=== PATIENT | male | born 1935 | race Caucasian/White ===

== ENCOUNTER 2016-11-23 16:11 | Inpatient (IN) | payer MEDICARE, OTHER ==
[~2016-11-23] VITALS: Ht 172.7 cm; Wt 74.2 kg
[~2016-11-23 16:11] MED LIST: ASCO500C PO; CALC-67 PO; CARV3.122 PO; CLOP75TA27 PO; FEXO180T81 PO; GLUC100018 PO; LEVO100T5 PO; LEVO112T4 PO; NITR0.4T SL; OMEP40CA5 PO; PANT40TA5 PO; PRAS10TA4 PO; RANO500T2 PO; SIMV20TA3 PO; VITA400T6 PO; [UNRECOGNIZED DRUG - OTHER]
--- NOTE | 2016-11-23 18:44 | PHYS DOC ---
Past Medical History Past Medical History: CAD, GERD, High Cholesterol, Hypertension, Hypothyroid Additional Past Medical Histor: ENVIRONMENTAL ALLERGIES Past Surgical History: TURP Additional Past Surgical Histo: CARDIAC STENT, SHOULDER & ANKLE SX, CATARACT SX Alcohol Use: None Drug Use: None Adult General Chief Complaint Chief Complaint: FLU SYMPTOM HPI HPI 81-year-old male presenting the emergency department with lightheadedness cough with clear runny nose and shortness of breath over the last 4 days. Recently diagnosed with influenza-type PCR in his primary care physician's office. He denies fevers however endorses chills. Onset 4 days. Location lungs/upper respiratory tract. Duration intermittent. No alleviating or exacerbating factors present. Review of systems is negative for chest pain abdominal pain nausea or vomiting. He denies diaphoresis. All other review of systems is negative unless otherwise noted in history of present illness. Review of Systems Review of Systems SEE ABOVE. Current Medications Current Medications Current Medications Medications (Trade) Dose Ordered Sig/Julian Start Time Stop Time Status Last Admin Dose Admin Morphine Sulfate 2 mg 2 mg PRN Q2HR PRN 11/23/16 19:15 11/24/16 19:14 Ondansetron HCl (Zofran) 4 mg PRN Q8HRS PRN 11/23/16 19:15 11/24/16 19:14 Oseltamivir Phosphate (Tamiflu) 75 mg BID 11/23/16 21:00 11/28/16 20:59 Sodium Chloride (Iv Sodium Chloride 0.9% 1000ml Bag) 1,000 ml @ 125 mls/hr Q8H 11/23/16 19:10 11/24/16 19:09 Allergies Allergies Allergies Coded Allergies Type Severity Reaction Last Updated Verified No Known Drug Allergies 08/16/14 No Physical Exam Physical Exam Constitutional: Well developed, well nourished, no acute distress, non-toxic appearance. HENT: Normocephalic, atraumatic, bilateral external ears normal, oropharynx moist, no oral exudates, nose normal. . Rhinorrhea present. Eyes: PERRLA, EOMI, conjunctiva normal, no discharge. Neck: Normal range of motion, no tenderness, supple, no stridor. [] Cardiovascular:Heart rate regular rhythm, no murmur Lungs & Thorax: Bilateral breath sounds clear to auscultation . No wheezing or crackles present. Abdomen: Bowel sounds normal, soft, no tenderness, no masses, no pulsatile masses. Skin: Warm, dry, no erythema, no rash. [] Back: No tenderness, no CVA tenderness. Extremities: No tenderness, no cyanosis, no clubbing, ROM intact, no edema. [] Neurologic: Alert and oriented X 3, normal motor function, normal sensory function, no focal deficits noted. Psychologic: Affect normal, judgement normal, mood normal. [] Current Patient Data Vital Signs Vital Signs Date Time Temp Pulse Resp B/P Pulse Ox O2 Delivery O2 Flow Rate FiO2 11/23/16 19:00 82 20 159/85 94 Room Air 11/23/16 16:23 99.7 99.7 EKG EKG [] Radiology/Procedures Radiology/Procedures [] Course & Med Decision Making Course & Med Decision Making Pertinent Labs and Imaging studies reviewed. (See chart for details) 81-year-old male presenting to the emergency department today with influenza. Given the patient's age he was treated with Tamiflu. While in the emergency department with attempted to get a chest x-ray two-view however the patient was too lightheaded to be able to stand. He was dehydrated. IV fluids administered along with Tamiflu. Blood work was obtained. Patient was then admitted to our hospital for IV fluid administration and treatment for influenza. Dragon Disclaimer Dragon Disclaimer This electronic medical record was generated, in whole or in part, using a voice recognition dictation system. Departure Departure Impression: Primary Impression: Influenza Additional Impression: Dehydration Disposition: ADMITTED INPATIENT Admitting Physician: Mingo Hathaway Condition: STABLE Referrals: SEJAL CEDENO MD (PCP) Problem Qualifiers NEHEMIAS MOLINA MD Nov 23, 2016 18:44
[2016-11-23 19:02] LABS: BILIRUBIN,URINE NEGATIVE (NEG); GLUCOSE,URINE NEGATIVE (NEG); NITRITE,URINE NEGATIVE (NEG)
[2016-11-23] MEDS ORDERED: IV NORMAL SALINE 1000ML BAG 1,000 ML IV SCH (19:10)
[2016-11-23] MEDS ORDERED: MORPHINE SULFATE 2 MG/ML DISP.SYRIN. IV PRN (19:15)
[2016-11-23] MEDS ORDERED: ONDANSETRON PF 4 MG/2 ML VIAL. IV PRN (19:15)
[2016-11-23 19:51] LABS: PROTEIN,URINE NEGATIVE (NEG-TRACE); WBC,URINE OCC /HPF (0-4)
[2016-11-23 19:52] LABS: BACTERIA,URINE FEW /HPF (0-FEW); SQUAMOUS EPITHELIAL CELL,UR OCC /LPF
[2016-11-23 20:16] LABS: BASO % 0 % (0-3); EOS % 0 % (0-3); HEMATOCRIT 42.7 % (39.0-53.0); HEMOGLOBIN 14.8 g/dL (13.0-17.5); LYMPH # 0.5 x10^3/uL (1.0-4.8); LYMPH % 8 % (24-48); MEAN CORPUSCULAR HEMOGLOBIN 31 pg (25-35); MEAN CORPUSCULAR HGB CONC 35 g/dL (31-37); MEAN CORPUSCULAR VOLUME 89 fL (79-100); MONO % 12 % (0-9); NEUT % 80 % (31-73); PLATELET COUNT 74 x10^3/uL (140-400); RED BLOOD COUNT 4.79 x10^6/uL (4.30-5.70); RED CELL DISTRIBUTION WIDTH 12.9 % (11.5-14.5); WHITE BLOOD COUNT 6.1 x10^3/uL (4.0-11.0)
[2016-11-23 20:25] LABS: CALCIUM 9.1 mg/dL (8.5-10.1); CREATININE 0.9 mg/dL (0.7-1.3); GFR 81.4; POTASSIUM 4.2 mmol/L (3.5-5.1)
[2016-11-23 20:33] LABS: ALBUMIN 3.7 g/dL (3.4-5.0); DIRECT BILIRUBIN 0.2 mg/dL (0.0-0.2); TOTAL BILIRUBIN 0.9 mg/dL (0.2-1.0); TOTAL PROTEIN 6.9 g/dL (6.4-8.2)
[2016-11-23 20:59] VITALS: BP 161/83
[2016-11-23] MEDS: OSELTAMIVIR 75 MG CAPSULE PO SCH (21:25)
[2016-11-23] MEDS ORDERED: LISI20TA PO (21:47)
[2016-11-23] MEDS ORDERED: CLOP75TA PO (21:49)
[2016-11-23] MEDS ORDERED: LANS30CA PO (21:49)
[2016-11-23] MEDS ORDERED: MULT-208 PO (21:52)
[2016-11-23 23:00] VITALS: BP 136/73
[2016-11-23] MEDS: SIMVASTATIN 20 MG TABLET PO SCH (23:40)
[2016-11-23] MEDS: RANOLAZINE 500 MG TAB.ER.12H PO SCH (23:41)
[2016-11-24] VITALS (8 sets, daily range): BP systolic 113–185; BP diastolic 73–101
--- NOTE | 2016-11-24 00:27 | HP ---
ADMIT DATE: 11/23/2016 CHIEF COMPLAINT: Flu symptoms. HISTORY OF PRESENT ILLNESS: The patient is a pleasant 81-year-old male who presents with worsening shortness of breath, weakness and lightheadedness. He is orthostatic. He states he has been treated for the flu by his primary care doctor. While in the ER, he can barely stand up. I have discussed the case with the ER physician. It appears he probably is developing clinical pneumonia. We are going to admit the patient, start him on IV antibiotics and consult pulmonary medicine and infectious disease. PAST MEDICAL HISTORY: Recent flu, coronary artery disease, GERD, hypertension, hyperlipidemia, cardiac stents, shoulder and ankle surgery, cataract surgery. ALLERGIES: None. FAMILY HISTORY: Hypertension. SOCIAL HISTORY: Does not drink, smoke or take drugs. MEDICATIONS: Reviewed, please refer to the MRAD. REVIEW OF SYSTEMS: GENERAL: He complains of weakness and lightheadedness. SKIN: No bruising, hair changes or rashes. EYES: No blurred, double or loss of vision. NOSE AND THROAT: No history of nosebleeds, hoarseness or sore throat. HEART: No history of palpitations, chest pain or shortness of breath on exertion. LUNGS: He complains of shortness of breath. GASTROINTESTINAL: Denies changes in appetite, nausea, vomiting, diarrhea or constipation. GENITOURINARY: No history of frequency, urgency, hesitancy or nocturia. NEUROLOGIC: Denies history of numbness, tingling, tremor or weakness. PSYCHIATRIC: No history of panic, anxiety or depression. ENDOCRINE: No history of heat or cold intolerance, polyuria or polydipsia. EXTREMITIES: Denies muscle weakness, joint pain, pain on walking or stiffness. PHYSICAL EXAMINATION: VITAL SIGNS: Temperature afebrile, pulse 90, respirations 18, blood pressure 127/94. GENERAL: He is alert, very weak. HEART: Normal S1, S2. LUNGS: Slightly coarse. ABDOMEN: Soft, positive bowel sounds. EXTREMITIES: No edema. SKIN: No rashes. PSYCHIATRIC: He is anxious. VASCULAR: Good capillary refill. ENDOCRINE: No thyromegaly. LYMPHATICS: No cervical nodes. HEMATOPOIETIC: No bruising. LABORATORY DATA: White count 6, hemoglobin 14, platelets 74. Electrolytes normal other than sodium of 135 and a glucose of 116. Troponin 0.023. BNP 715. Urinalysis negative other than a small amount of leukocyte esterase. Chest x-ray results are pending. ASSESSMENT AND PLAN: Recent influenza with persistent flu symptoms. The patient has been admitted, we will consult Infectious Disease and Pulmonary Medicine and Cardiology. IV fluids. Continue home medicines. We will consider starting IV antibiotics if Infectious Disease agrees. KELLEY WASHINGTON DO DR: MILLICENT/rohini JOB#: [id number] / [id number]
--- NOTE | 2016-11-24 00:39 | ACF ---
Admission Forms Criteria Admission Criteria Met?: KASIA Simms Nov 24, 2016 00:41 NEHEMIAS MOLINA MD Nov 24, 2016 18:11
[2016-11-24 03:44] LABS: HCO3 ABG 23 mmol/L (21-28); PCO2 ABG 38 mmHg (35-46); PO2 ABG 61 mmHg (65-108); SAT O2 ABG 90 % (92-99)
[2016-11-24] MEDS ORDERED: IV NORMAL SALINE 1000ML BAG 1,000 ML IV SCH (04:30)
[2016-11-24] MEDS ORDERED: FUROSEMIDE 100 MG/10 ML VIAL IVP ONE (04:30)
[2016-11-24] MEDS ORDERED: FUROSEMIDE 20 MG/2 ML VIAL IVP ONE (04:30)
[2016-11-24] MEDS ORDERED: SODIUM BICARB ADULT 8.4% 50 MEQ/50 ML DISP.SYRIN. IV ONE (05:00)
[2016-11-24 05:09] LABS: BASO % 0 % (0-3); CALCIUM 8.3 mg/dL (8.5-10.1); CREATININE 0.8 mg/dL (0.7-1.3); EOS % 0 % (0-3); GFR 93.3; HEMATOCRIT 41.7 % (39.0-53.0); HEMOGLOBIN 14.2 g/dL (13.0-17.5); LYMPH # 0.4 x10^3/uL (1.0-4.8); LYMPH % 6 % (24-48); MEAN CORPUSCULAR HEMOGLOBIN 31 pg (25-35); MEAN CORPUSCULAR HGB CONC 34 g/dL (31-37); MEAN CORPUSCULAR VOLUME 90 fL (79-100); MONO % 8 % (0-9); NEUT % 86 % (31-73); PLATELET COUNT 65 x10^3/uL (140-400); POTASSIUM 3.7 mmol/L (3.5-5.1); RED BLOOD COUNT 4.64 x10^6/uL (4.30-5.70); RED CELL DISTRIBUTION WIDTH 12.9 % (11.5-14.5); WHITE BLOOD COUNT 7.2 x10^3/uL (4.0-11.0)
--- NOTE | 2016-11-24 05:52 | RAD ---
PROCEDURE AP portable chest x-ray HISTORY Respiratory distress, pneumonia COMPARISON Chest x-ray August 16, 2014 FINDINGS This study was not requested for interpretation and sent to the [facility] PACs for interpretation until 5 a.m. November 24, 2016. Heart size stable. Tortuosity thoracic aorta silhouette is stable. There is asymmetric rounded fullness at the right hilum, a mass or adenopathy is not excluded. No pneumothorax, pulmonary opacities or pleural effusions. Fixation plate and screws at the right clavicle. IMPRESSION Rounded asymmetric density at the right hilum, a mass or adenopathy is not excluded. Electronically signed by: Neo Napier MD (Nov 24, 2016 05:51:09)
[2016-11-24] MEDS: PANTOPRAZOLE 40 MG TABLET. PO SCH (06:35)
[2016-11-24] MEDS: LEVOTHYROXINE 112 MCG TABLET PO SCH (06:35)
--- NOTE | 2016-11-24 06:37 | EKG ---
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
[2016-11-24 07:45] LABS: OBC FLU VALID
--- NOTE | 2016-11-24 08:29 | PDOC ---
Provider Note Provider Note dictated inf A Right hilar density see orders LAYTON VAZQUEZ MD Nov 24, 2016 08:28
[2016-11-24] MEDS: CETIRIZINE HCL 10 MG TABLET PO SCH (08:46)
[2016-11-24] MEDS: CALCIUM CARB/VIT D3 500/200 TABLET PO SCH (08:46)
[2016-11-24] MEDS: RANOLAZINE 500 MG TAB.ER.12H PO SCH ×2 (08:46→21:03)
[2016-11-24] MEDS: ASCORBIC ACID 500 MG TABLET PO SCH (08:46)
[2016-11-24] MEDS: CLOPIDOGREL BISULFATE 75 MG TABLET PO SCH (08:46)
[2016-11-24] MEDS: MULTIVITAMIN with MINERAL TABLET. PO SCH (08:47)
[2016-11-24] MEDS: OSELTAMIVIR 75 MG CAPSULE PO SCH ×2 (08:47→21:03)
[2016-11-24] MEDS: VITAMIN E 200 UNIT CAPSULE. PO SCH (08:47)
[2016-11-24] MEDS: LISINOPRIL 20 MG TABLET PO SCH (08:47)
[2016-11-24] MEDS: CARVEDILOL 3.125 MG TABLET PO SCH ×2 (08:48→18:12)
[2016-11-24] MEDS ORDERED: IOHEXOL 300 MG/ML 75 ML VIAL IV ONE (09:00)
[2016-11-24] MEDS ORDERED: NON FORMULARY ITEM (Glucosamine Sulfate 2KCL (Glucosamine) 1,000 MG) PO SCH (09:00)
--- NOTE | 2016-11-24 09:14 | CONS ---
DATE OF CONSULTATION: 11/24/2016 Maximal ATTENDING PHYSICIAN: Dr. Hathaway. REASON FOR CONSULTATION: Influenza, dyspnea, respiratory failure. HISTORY OF PRESENT ILLNESS: The patient is a 81-year-old male who smoked for 27 years before quitting more than 25 years ago. He presented to the hospital with complaint of shortness of breath, cough, subjective fever, weakness and lightheadedness. He was tested positive for influenza A. The patient had a chest x-ray, which was reviewed by me and it shows an asymmetric density at the right hilum which could be a mass or adenopathy. I have been asked to see him for further evaluation. There is no subjective weight loss. No hemoptysis. No headaches. No nausea, vomiting or diarrhea. PAST MEDICAL HISTORY: Coronary artery disease, GERD, hypertension, hyperlipidemia, cardiac stents, shoulder and ankle surgery and cataract surgery and possible COPD. PAST SURGICAL HISTORY: No recent surgery. ALLERGIES: None. FAMILY HISTORY: Hypertension. SOCIAL HISTORY: Quit tobacco more than 25 years and before this, smoked for 27 years. MEDICATIONS: All reviewed as listed in the MRAD including Plavix and Tamiflu. REVIEW OF SYSTEMS: Twelve-point system was obtained. Pertinent positives discussed in history of present illness, otherwise noncontributory. All systems that were negative were reviewed as well. ALLERGIES: None. FAMILY HISTORY: Noncontributory. PHYSICAL EXAMINATION: VITAL SIGNS: T-max 99.5, blood pressure is stable 113/75, pulse ox 97% on 5 liters. NECK: Supple. LUNGS: Few rhonchi posteriorly. CARDIOVASCULAR: Regular rate and rhythm. ABDOMEN: Soft, nontender. EXTREMITIES: With no pitting edema. LABORATORY DATA: Reviewed. BUN 12, creatinine 0.8. ABGs with a pH of 7.40, pCO2 of 30 and a pO2 of 61 on 32% FIO2. White cell count 7.2. IMPRESSION: 1. Acute hypoxic respiratory failure secondary to influenza A. 2. Abnormal chest x-ray with asymmetric rounded density in the right hilar area could be mass or adenopathy or pulmonary artery shadow, needs to have CT chest for better evaluation. 3. Possible underlying chronic obstructive pulmonary disease. 4. Influenza A. RECOMMENDATIONS: 1. Continue with present oxygen with gradual weaning. 2. Continue with Tamiflu. 3. P.r.n. bronchodilators. 4. CT chest with contrast to rule out right hilar adenopathy or mass. 5. Monitor for any fevers. 6. Respiratory isolation for influenza. 7. Discussed with RN. Further recommendations to follow after CT of the chest. LAYTON VAZQUEZ MD DR: KRYSTEN/rohini JOB#: [id number] / [id number]
--- NOTE | 2016-11-24 09:51 | PDOC2 ---
CARDIAC CONSULT DATE OF CONSULT Date of Consult DATE: 11/24/16 TIME: 09:42 REASON FOR CONSULT Reason for Consult: CHF REFERRING PHYSICIAN Referring Physician: Dr. 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 Patient reports symptoms have been ongoing since Wednesday. PCR positives for influenza at PCP office. Patient denies any chest pain, palpitations, dizziness, syncope, LE edema, or orthopnea. Denies fevers but has had chills. 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 Endocrine: Hypothyroidism Dermatology: No pertinent hx PAST SURGICAL HISTORY Past Surgical History: Other (left shoulder and right foot sx. See PMH) FAMILY HISTORY Family History: Heart Disease SOCIAL HISTORY Smoke: No ALCOHOL: none Drugs: None Lives: with Family CURRENT MEDICATIONS CURRENT MEDICATIONS Current Medications Medications (Trade) Dose Ordered Sig/Julian Route PRN Reason Start Time Stop Time Status Last Admin Dose Admin Oseltamivir Phosphate 75 mg 75 mg BID PO 11/23/16 21:00 11/28/16 20:59 11/24/16 08:47 Sodium Chloride (Iv Sodium Chloride 0.9% 1000ml Bag) 1,000 ml @ 125 mls/hr Q8H IV 11/23/16 19:10 11/24/16 04:19 DC 11/23/16 20:13 Carvedilol (Coreg) 3.125 mg BIDWMEALS PO 11/24/16 08:00 11/24/16 08:48 Clopidogrel Bisulfate (Plavix) 75 mg DAILY PO 11/24/16 09:00 11/24/16 08:46 Levothyroxine Sodium (Synthroid) 112 mcg DAILY07 PO 11/24/16 07:00 11/24/16 06:35 Lisinopril (Prinivil) 20 mg DAILY PO 11/24/16 09:00 11/24/16 08:47 Ranolazine (Ranexa) 500 mg BID PO 11/23/16 23:00 11/24/16 08:46 Simvastatin (Zocor) 20 mg HS PO 11/23/16 23:00 11/23/16 23:40 Ascorbic Acid (Vitamin C) 500 mg DAILY PO 11/24/16 09:00 11/24/16 08:46 Calcium/Vitamin D (Oscal D 500mg/ 200uts) 1 tab DAILY PO 11/24/16 09:00 11/24/16 08:46 Cetirizine HCl (Zyrtec) 10 mg DAILY PO 11/24/16 09:00 11/24/16 08:46 Pantoprazole Sodium (Protonix) 40 mg DAILYAC PO 11/24/16 07:30 11/24/16 06:35 Multivitamins/ Calcium (Thera M Plus) 1 tab DAILY PO 11/24/16 09:00 11/24/16 08:47 Vitamin E 400 unit DAILY PO 11/24/16 09:00 11/24/16 08:47 Furosemide 60 mg 60 mg 1X ONCE IVP 11/24/16 04:30 11/24/16 04:31 DC 11/24/16 04:36 Sodium Chloride (Iv Sodium Chloride 0.9% 1000ml Bag) 1,000 ml @ 20 mls/hr Q24H IV 11/24/16 04:30 11/24/16 04:31 DC 11/24/16 04:38 Sodium Bicarbonate 50 meq 1X ONCE IV 11/24/16 05:00 11/24/16 05:01 DC 11/24/16 04:47 ALLERGIES ALLERGIES: Coded Allergies: No Known Drug Allergies (Unverified , 08/16/14) ROS Review of System 14 point ROS conducted with pertinent positives noted above in HPI PHYSICAL EXAM General: Alert, Oriented X3, Cooperative, No acute distress HEENT: Atraumatic, Mucous membr. moist/pink Lungs: Other (coarse throughout ) Heart: Regular rate, Normal S1, Normal S2, Other (tele: SR) Abdomen: Soft, No tenderness Extremities: No edema, Normal pulses Skin: No breakdown, No significant lesion Neuro: Normal speech, Sensation intact Psych/Mental Status: Mental status NL, Mood NL MUSCULOSKELETAL: Osteoarthritic changes both hands VITALS VITALS Vital Signs Date Time Temp Pulse Resp B/P Pulse Ox O2 Delivery O2 Flow Rate FiO2 11/24/16 08:48 93 113/75 11/24/16 06:37 97.5 28 97 Simple Mask 5.0 97.5 LABS Lab: Laboratory Tests Test 11/23/16 17:28 11/23/16 20:05 11/24/16 03:44 11/24/16 04:45 Urine Collection Type Unknown Urine Color [place] Urine Clarity Clear Urine pH 7.0 Urine Specific Hamel 1.020 Urine Protein Negativemg/dL (NEG-TRACE) Urine Glucose (UA) Negativemg/dL (NEG) Urine Ketones (Stick) Tracemg/dL (NEG) Urine Blood Negative (NEG) Urine Nitrite Negative (NEG) Urine Bilirubin Negative (NEG) Urine Urobilinogen Dipstick 1.0mg/dL (0.2 mg/dL) Urine Leukocyte Esterase Small (NEG) Urine RBC 3-5/HPF (0-2) Urine WBC Occ/HPF (0-4) Urine Squamous Epithelial Cells Occ/LPF Urine Bacteria Few/HPF (0-FEW) White Blood Count 6.1x10^3/uL (4.0-11.0) 7.2x10^3/uL (4.0-11.0) Red Blood Count 4.79x10^6/uL (4.30-5.70) 4.64x10^6/uL (4.30-5.70) Hemoglobin 14.8g/dL (13.0-17.5) 14.2g/dL (13.0-17.5) Hematocrit 42.7% (39.0-53.0) 41.7% (39.0-53.0) Mean Corpuscular Volume 89fL (79-100) 90fL (79-100) Mean Corpuscular Hemoglobin 31pg (25-35) 31pg (25-35) Mean Corpuscular Hemoglobin Concent 35g/dL (31-37) 34g/dL (31-37) Red Cell Distribution Width 12.9% (11.5-14.5) 12.9% (11.5-14.5) Platelet Count 74x10^3/uL (140-400) 65x10^3/uL (140-400) Neutrophils (%) (Auto) 80% (31-73) 86% (31-73) Lymphocytes (%) (Auto) 8% (24-48) 6% (24-48) Monocytes (%) (Auto) 12% (0-9) 8% (0-9) Eosinophils (%) (Auto) 0% (0-3) 0% (0-3) Basophils (%) (Auto) 0% (0-3) 0% (0-3) Neutrophils # (Auto) 4.9x10^3uL (1.8-7.7) 6.2x10^3uL (1.8-7.7) Lymphocytes # (Auto) 0.5x10^3/uL (1.0-4.8) 0.4x10^3/uL (1.0-4.8) Monocytes # (Auto) 0.7x10^3/uL (0.0-1.1) 0.6x10^3/uL (0.0-1.1) Eosinophils # (Auto) 0.0x10^3/uL (0.0-0.7) 0.0x10^3/uL (0.0-0.7) Basophils # (Auto) 0.0x10^3/uL (0.0-0.2) 0.0x10^3/uL (0.0-0.2) Sodium Level 135mmol/L (136-145) 134mmol/L (136-145) Potassium Level 4.2mmol/L (3.5-5.1) 3.7mmol/L (3.5-5.1) Chloride Level 98mmol/L (98-107) 100mmol/L (98-107) Carbon Dioxide Level 31mmol/L (21-32) 28mmol/L (21-32) Anion Gap 6 (6-14) 6 (6-14) Blood Urea Nitrogen 11mg/dL (8-26) 12mg/dL (8-26) Creatinine 0.9mg/dL (0.7-1.3) 0.8mg/dL (0.7-1.3) Estimated GFR (Cockcroft-Gault) 81.4 93.3 Glucose Level 116mg/dL (70-99) 111mg/dL (70-99) Calcium Level 9.1mg/dL (8.5-10.1) 8.3mg/dL (8.5-10.1) Total Bilirubin 0.9mg/dL (0.2-1.0) Direct Bilirubin 0.2mg/dL (0.0-0.2) Aspartate Amino Transf (AST/SGOT) 24U/L (15-37) Alanine Aminotransferase (ALT/SGPT) 22U/L (16-63) Alkaline Phosphatase 69U/L (46-116) Troponin I Quantitative 0.023ng/mL (0.000-0.055) QG-Sin-J-Type Natriuretic Peptide 715pg/mL (0-449) Total Protein 6.9g/dL (6.4-8.2) Albumin 3.7g/dL (3.4-5.0) Lipase 77U/L (73-393) O2 Saturation 90% (92-99) Arterial Blood pH 7.40 (7.35-7.45) Arterial Blood pCO2 at Patient Temp 38mmHg (35-46) Arterial Blood pO2 at Patient Temp 61mmHg (65-108) Arterial Blood HCO3 23mmol/L (21-28) Arterial Blood Base Excess -2mmol/L (-3-3) FiO2 32.0 Lactic Acid Level 1.1mmol/L (0.4-2.0) Test 11/24/16 07:10 Influenza Type A Antigen Positive (NEGATIVE) Influenza Type B Antigen Negative (NEGATIVE) ECHOCARDIOGRAM ECHOCARDIOGRAM <Conclusion> Left ventricle systolic function is normal. The Ejection Fraction is estimated at 55%. There is normal LV segmental wall motion. Transmitral Doppler flow pattern is Grade I-abnormal relaxation pattern. Mild aortic regurgitation. Moderate mitral regurgitation. Trace tricuspid regurgitation. The PA pressure was estimated at 34 mmHg. Injection of bubbles documented no interatrial shunt. There is no evidence of significant pericardial effusion. DATE: 10/23/15 1305 STRESS TEST STRESS TEST Conclusion 1. No evidence of ischemia with vasodilator stress on EKG but PVC's noted. 2. Fixed inferior wall defect as noted above. 3. Normal EF with stress. EF > 70% 4. Moderate risk stress test (Based on defect size and PVC's at stress). DATE: 10/22/15 1205 HEART CATH HEART CATH DATE: 08/20/14 1611 Conclusion Normal left main coronary artery. 2 vessel coronary artery disease encompassing a total occlusion of the right coronary artery in its proximal section along with a 90% stenosis at the origin of second rami involving a large first obtuse marginal vessel. This lesion was looked on by Dr. Souza and deemed not to be optimal for percutaneous intervention. He felt medical therapy was warranted. Left ventricular ejection fraction is within normal limits and visually estimated to be 65%. Recommendations Aggressive Medical Therapy DATE: 10/25/15 1101 Conclusion 1. Two-vessel coronary artery disease including chronic total occlusion of the right coronary artery that was described in prior cardiac catheterization and managed medically. 2. Successful PCI/drug eluting stent placement to the left anterior descending artery. Recommendations 1. Aspirin 325 mg daily 2. Effient 10 mg daily for preferably one year 3. Cardiovascular risk factor modification ASSESSMENT/PLAN ASSESSMENT/PLAN 1. Dyspnea likely due to acute respiratory failure secondary to influenza and AE COPD mild Nt BNP elevation insignificant based upon age adjustment. CXR not consistent with HF no clinical s/s of overt HF continued management per pulm 2. CAD stable. CP free s/p PCI/SIDRA to LAD. 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 3. PAD stable. no claudication symptom 4. HTN controlled. continue current therapy 5. HLP statin therapy 6. Influenza febrile Problems: TOREY NEVAREZ APRN Nov 24, 2016 09:51
--- NOTE | 2016-11-24 10:14 | PDOC ---
PROGRESS NOTES Chief Complaint Chief Complaint sepsis, viral influenza A COPD possible constipation marked weakness History of Present Illness History of Present Illness symptom management antitussives nebs, pulm toilet start PT and OT miralax and colace, he reports constipation Vitals Vitals Vital Signs Date Time Temp Pulse Resp B/P Pulse Ox O2 Delivery O2 Flow Rate FiO2 11/24/16 08:48 93 113/75 11/24/16 06:37 97.5 28 97 Simple Mask 5.0 97.5 Physical Exam General: Alert, Oriented X3, Cooperative Heart: Regular rate Lungs: Other (rales, low vol) Abdomen: Normal bowel sounds, Soft Extremities: No clubbing Skin: No rashes, No breakdown Labs LABS Laboratory Tests Test 11/23/16 17:28 11/23/16 20:05 11/24/16 03:44 11/24/16 04:45 Urine Collection Type Unknown Urine Color Blanquita Urine Clarity Clear Urine pH 7.0 Urine Specific Correll 1.020 Urine Protein Negativemg/dL (NEG-TRACE) Urine Glucose (UA) Negativemg/dL (NEG) Urine Ketones (Stick) Tracemg/dL (NEG) Urine Blood Negative (NEG) Urine Nitrite Negative (NEG) Urine Bilirubin Negative (NEG) Urine Urobilinogen Dipstick 1.0mg/dL (0.2 mg/dL) Urine Leukocyte Esterase Small (NEG) Urine RBC 3-5/HPF (0-2) Urine WBC Occ/HPF (0-4) Urine Squamous Epithelial Cells Occ/LPF Urine Bacteria Few/HPF (0-FEW) White Blood Count 6.1x10^3/uL (4.0-11.0) 7.2x10^3/uL (4.0-11.0) Red Blood Count 4.79x10^6/uL (4.30-5.70) 4.64x10^6/uL (4.30-5.70) Hemoglobin 14.8g/dL (13.0-17.5) 14.2g/dL (13.0-17.5) Hematocrit 42.7% (39.0-53.0) 41.7% (39.0-53.0) Mean Corpuscular Volume 89fL (79-100) 90fL (79-100) Mean Corpuscular Hemoglobin 31pg (25-35) 31pg (25-35) Mean Corpuscular Hemoglobin Concent 35g/dL (31-37) 34g/dL (31-37) Red Cell Distribution Width 12.9% (11.5-14.5) 12.9% (11.5-14.5) Platelet Count 74x10^3/uL (140-400) 65x10^3/uL (140-400) Neutrophils (%) (Auto) 80% (31-73) 86% (31-73) Lymphocytes (%) (Auto) 8% (24-48) 6% (24-48) Monocytes (%) (Auto) 12% (0-9) 8% (0-9) Eosinophils (%) (Auto) 0% (0-3) 0% (0-3) Basophils (%) (Auto) 0% (0-3) 0% (0-3) Neutrophils # (Auto) 4.9x10^3uL (1.8-7.7) 6.2x10^3uL (1.8-7.7) Lymphocytes # (Auto) 0.5x10^3/uL (1.0-4.8) 0.4x10^3/uL (1.0-4.8) Monocytes # (Auto) 0.7x10^3/uL (0.0-1.1) 0.6x10^3/uL (0.0-1.1) Eosinophils # (Auto) 0.0x10^3/uL (0.0-0.7) 0.0x10^3/uL (0.0-0.7) Basophils # (Auto) 0.0x10^3/uL (0.0-0.2) 0.0x10^3/uL (0.0-0.2) Sodium Level 135mmol/L (136-145) 134mmol/L (136-145) Potassium Level 4.2mmol/L (3.5-5.1) 3.7mmol/L (3.5-5.1) Chloride Level 98mmol/L (98-107) 100mmol/L (98-107) Carbon Dioxide Level 31mmol/L (21-32) 28mmol/L (21-32) Anion Gap 6 (6-14) 6 (6-14) Blood Urea Nitrogen 11mg/dL (8-26) 12mg/dL (8-26) Creatinine 0.9mg/dL (0.7-1.3) 0.8mg/dL (0.7-1.3) Estimated GFR (Cockcroft-Gault) 81.4 93.3 Glucose Level 116mg/dL (70-99) 111mg/dL (70-99) Calcium Level 9.1mg/dL (8.5-10.1) 8.3mg/dL (8.5-10.1) Total Bilirubin 0.9mg/dL (0.2-1.0) Direct Bilirubin 0.2mg/dL (0.0-0.2) Aspartate Amino Transf (AST/SGOT) 24U/L (15-37) Alanine Aminotransferase (ALT/SGPT) 22U/L (16-63) Alkaline Phosphatase 69U/L (46-116) Troponin I Quantitative 0.023ng/mL (0.000-0.055) DK-Iqm-B-Type Natriuretic Peptide 715pg/mL (0-449) Total Protein 6.9g/dL (6.4-8.2) Albumin 3.7g/dL (3.4-5.0) Lipase 77U/L (73-393) O2 Saturation 90% (92-99) Arterial Blood pH 7.40 (7.35-7.45) Arterial Blood pCO2 at Patient Temp 38mmHg (35-46) Arterial Blood pO2 at Patient Temp 61mmHg (65-108) Arterial Blood HCO3 23mmol/L (21-28) Arterial Blood Base Excess -2mmol/L (-3-3) FiO2 32.0 Lactic Acid Level 1.1mmol/L (0.4-2.0) Test 11/24/16 07:10 Influenza Type A Antigen Positive (NEGATIVE) Influenza Type B Antigen Negative (NEGATIVE) Review of Systems Review of Systems no n.v.d + constipation myalgia, weakness, cannot ambulate Assessment and Plan Assessmemt and Plan Problems Medical Problems: (1) Dehydration Status: Acute (2) Influenza Status: Acute (3) Influenza Status: Acute Problems: Comment Review of Relevant I have reviewed the following items erika (where applicable) has been applied. Labs Laboratory Tests Test 11/23/16 17:28 11/23/16 20:05 11/24/16 03:44 11/24/16 04:45 Urine Collection Type Unknown Urine Color Blanquita Urine Clarity Clear Urine pH 7.0 Urine Specific [place]rell 1.020 Urine Protein Negativemg/dL (NEG-TRACE) Urine Glucose (UA) Negativemg/dL (NEG) Urine Ketones (Stick) Tracemg/dL (NEG) Urine Blood Negative (NEG) Urine Nitrite Negative (NEG) Urine Bilirubin Negative (NEG) Urine Urobilinogen Dipstick 1.0mg/dL (0.2 mg/dL) Urine Leukocyte Esterase Small (NEG) Urine RBC 3-5/HPF (0-2) Urine WBC Occ/HPF (0-4) Urine Squamous Epithelial Cells Occ/LPF Urine Bacteria Few/HPF (0-FEW) White Blood Count 6.1x10^3/uL (4.0-11.0) 7.2x10^3/uL (4.0-11.0) Red Blood Count 4.79x10^6/uL (4.30-5.70) 4.64x10^6/uL (4.30-5.70) Hemoglobin 14.8g/dL (13.0-17.5) 14.2g/dL (13.0-17.5) Hematocrit 42.7% (39.0-53.0) 41.7% (39.0-53.0) Mean Corpuscular Volume 89fL (79-100) 90fL (79-100) Mean Corpuscular Hemoglobin 31pg (25-35) 31pg (25-35) Mean Corpuscular Hemoglobin Concent 35g/dL (31-37) 34g/dL (31-37) Red Cell Distribution Width 12.9% (11.5-14.5) 12.9% (11.5-14.5) Platelet Count 74x10^3/uL (140-400) 65x10^3/uL (140-400) Neutrophils (%) (Auto) 80% (31-73) 86% (31-73) Lymphocytes (%) (Auto) 8% (24-48) 6% (24-48) Monocytes (%) (Auto) 12% (0-9) 8% (0-9) Eosinophils (%) (Auto) 0% (0-3) 0% (0-3) Basophils (%) (Auto) 0% (0-3) 0% (0-3) Neutrophils # (Auto) 4.9x10^3uL (1.8-7.7) 6.2x10^3uL (1.8-7.7) Lymphocytes # (Auto) 0.5x10^3/uL (1.0-4.8) 0.4x10^3/uL (1.0-4.8) Monocytes # (Auto) 0.7x10^3/uL (0.0-1.1) 0.6x10^3/uL (0.0-1.1) Eosinophils # (Auto) 0.0x10^3/uL (0.0-0.7) 0.0x10^3/uL (0.0-0.7) Basophils # (Auto) 0.0x10^3/uL (0.0-0.2) 0.0x10^3/uL (0.0-0.2) Sodium Level 135mmol/L (136-145) 134mmol/L (136-145) Potassium Level 4.2mmol/L (3.5-5.1) 3.7mmol/L (3.5-5.1) Chloride Level 98mmol/L (98-107) 100mmol/L (98-107) Carbon Dioxide Level 31mmol/L (21-32) 28mmol/L (21-32) Anion Gap 6 (6-14) 6 (6-14) Blood Urea Nitrogen 11mg/dL (8-26) 12mg/dL (8-26) Creatinine 0.9mg/dL (0.7-1.3) 0.8mg/dL (0.7-1.3) Estimated GFR (Cockcroft-Gault) 81.4 93.3 Glucose Level 116mg/dL (70-99) 111mg/dL (70-99) Calcium Level 9.1mg/dL (8.5-10.1) 8.3mg/dL (8.5-10.1) Total Bilirubin 0.9mg/dL (0.2-1.0) Direct Bilirubin 0.2mg/dL (0.0-0.2) Aspartate Amino Transf (AST/SGOT) 24U/L (15-37) Alanine Aminotransferase (ALT/SGPT) 22U/L (16-63) Alkaline Phosphatase 69U/L (46-116) Troponin I Quantitative 0.023ng/mL (0.000-0.055) IW-Mqv-B-Type Natriuretic Peptide 715pg/mL (0-449) Total Protein 6.9g/dL (6.4-8.2) Albumin 3.7g/dL (3.4-5.0) Lipase 77U/L (73-393) O2 Saturation 90% (92-99) Arterial Blood pH 7.40 (7.35-7.45) Arterial Blood pCO2 at Patient Temp 38mmHg (35-46) Arterial Blood pO2 at Patient Temp 61mmHg (65-108) Arterial Blood HCO3 23mmol/L (21-28) Arterial Blood Base Excess -2mmol/L (-3-3) FiO2 32.0 Lactic Acid Level 1.1mmol/L (0.4-2.0) Test 11/24/16 07:10 Influenza Type A Antigen Positive (NEGATIVE) Influenza Type B Antigen Negative (NEGATIVE) Laboratory Tests Test 11/23/16 17:28 11/23/16 20:05 11/24/16 03:44 11/24/16 04:45 Urine Collection Type Unknown Urine Color Blanquita Urine Clarity Clear Urine pH 7.0 Urine Specific [place]rell 1.020 Urine Protein Negativemg/dL (NEG-TRACE) Urine Glucose (UA) Negativemg/dL (NEG) Urine Ketones (Stick) Tracemg/dL (NEG) Urine Blood Negative (NEG) Urine Nitrite Negative (NEG) Urine Bilirubin Negative (NEG) Urine Urobilinogen Dipstick 1.0mg/dL (0.2 mg/dL) Urine Leukocyte Esterase Small (NEG) Urine RBC 3-5/HPF (0-2) Urine WBC Occ/HPF (0-4) Urine Squamous Epithelial Cells Occ/LPF Urine Bacteria Few/HPF (0-FEW) White Blood Count 6.1x10^3/uL (4.0-11.0) 7.2x10^3/uL (4.0-11.0) Red Blood Count 4.79x10^6/uL (4.30-5.70) 4.64x10^6/uL (4.30-5.70) Hemoglobin 14.8g/dL (13.0-17.5) 14.2g/dL (13.0-17.5) Hematocrit 42.7% (39.0-53.0) 41.7% (39.0-53.0) Mean Corpuscular Volume 89fL (79-100) 90fL (79-100) Mean Corpuscular Hemoglobin 31pg (25-35) 31pg (25-35) Mean Corpuscular Hemoglobin Concent 35g/dL (31-37) 34g/dL (31-37) Red Cell Distribution Width 12.9% (11.5-14.5) 12.9% (11.5-14.5) Platelet Count 74x10^3/uL (140-400) 65x10^3/uL (140-400) Neutrophils (%) (Auto) 80% (31-73) 86% (31-73) Lymphocytes (%) (Auto) 8% (24-48) 6% (24-48) Monocytes (%) (Auto) 12% (0-9) 8% (0-9) Eosinophils (%) (Auto) 0% (0-3) 0% (0-3) Basophils (%) (Auto) 0% (0-3) 0% (0-3) Neutrophils # (Auto) 4.9x10^3uL (1.8-7.7) 6.2x10^3uL (1.8-7.7) Lymphocytes # (Auto) 0.5x10^3/uL (1.0-4.8) 0.4x10^3/uL (1.0-4.8) Monocytes # (Auto) 0.7x10^3/uL (0.0-1.1) 0.6x10^3/uL (0.0-1.1) Eosinophils # (Auto) 0.0x10^3/uL (0.0-0.7) 0.0x10^3/uL (0.0-0.7) Basophils # (Auto) 0.0x10^3/uL (0.0-0.2) 0.0x10^3/uL (0.0-0.2) Sodium Level 135mmol/L (136-145) 134mmol/L (136-145) Potassium Level 4.2mmol/L (3.5-5.1) 3.7mmol/L (3.5-5.1) Chloride Level 98mmol/L (98-107) 100mmol/L (98-107) Carbon Dioxide Level 31mmol/L (21-32) 28mmol/L (21-32) Anion Gap 6 (6-14) 6 (6-14) Blood Urea Nitrogen 11mg/dL (8-26) 12mg/dL (8-26) Creatinine 0.9mg/dL (0.7-1.3) 0.8mg/dL (0.7-1.3) Estimated GFR (Cockcroft-Gault) 81.4 93.3 Glucose Level 116mg/dL (70-99) 111mg/dL (70-99) Calcium Level 9.1mg/dL (8.5-10.1) 8.3mg/dL (8.5-10.1) Total Bilirubin 0.9mg/dL (0.2-1.0) Direct Bilirubin 0.2mg/dL (0.0-0.2) Aspartate Amino Transf (AST/SGOT) 24U/L (15-37) Alanine Aminotransferase (ALT/SGPT) 22U/L (16-63) Alkaline Phosphatase 69U/L (46-116) Troponin I Quantitative 0.023ng/mL (0.000-0.055) YV-Rfx-A-Type Natriuretic Peptide 715pg/mL (0-449) Total Protein 6.9g/dL (6.4-8.2) Albumin 3.7g/dL (3.4-5.0) Lipase 77U/L (73-393) O2 Saturation 90% (92-99) Arterial Blood pH 7.40 (7.35-7.45) Arterial Blood pCO2 at Patient Temp 38mmHg (35-46) Arterial Blood pO2 at Patient Temp 61mmHg (65-108) Arterial Blood HCO3 23mmol/L (21-28) Arterial Blood Base Excess -2mmol/L (-3-3) FiO2 32.0 Lactic Acid Level 1.1mmol/L (0.4-2.0) Test 11/24/16 07:10 Influenza Type A Antigen Positive (NEGATIVE) Influenza Type B Antigen Negative (NEGATIVE) Medications Current Medications Oseltamivir Phosphate (Tamiflu) 75 mg BID PO Last administered on 11/24/16 08: 47; Start 11/23/16 at 21:00; Stop 11/28/16 at 20:59 Ondansetron HCl (Zofran) 4 mg PRN Q8HRS PRN IV NAUSEA/VOMITING; Start 11/23/16 at 19:15; Stop 11/24/16 at 19:14 Morphine Sulfate 2 mg 2 mg PRN Q2HR PRN IV PAIN; Start 11/23/16 at 19:15; Stop 11/24/16 at 19:14 Sodium Chloride (Iv Sodium Chloride 0.9% 1000ml Bag) 1,000 ml @ 125 mls/hr Q8H IV Last administered on 11/23/16 20:13; Start 11/23/16 at 19:10; Stop 11/24/16 at 04:19; Status DC Acetaminophen (Tylenol) 650 mg PRN Q6HRS PRN PO MILD PAIN / TEMP; Start at 21:30 Carvedilol (Coreg) 3.125 mg BIDWMEALS PO Last administered on 11/24/16 08:48; Start 11/24/16 at 08:00 Clopidogrel Bisulfate (Plavix) 75 mg DAILY PO Last administered on 11/24/16 08: 46; Start 11/24/16 at 09:00 Levothyroxine Sodium (Synthroid) 112 mcg DAILY07 PO Last administered on 06:35; Start 11/24/16 at 07:00 Lisinopril (Prinivil) 20 mg DAILY PO Last administered on 11/24/16 08:47; Start 11/24/16 at 09:00 Ranolazine (Ranexa) 500 mg BID PO Last administered on 11/24/16 08:46; Start at 23:00 Simvastatin (Zocor) 20 mg HS PO Last administered on 11/23/16 23:40; Start 11/23 at 23:00 Ascorbic Acid (Vitamin C) 500 mg DAILY PO Last administered on 11/24/16 08:46; Start 11/24/16 at 09:00 Calcium/Vitamin D (Oscal D 500mg/ 200uts) 1 tab DAILY PO Last administered on 08:46; Start 11/24/16 at 09:00 Cetirizine HCl (Zyrtec) 10 mg DAILY PO Last administered on 11/24/16 08:46; Start 11/24/16 at 09:00 Non-Formulary Medication 1,000 mg DAILY PO supplement; Start 11/24/16 at 09:00; Status UNV Pantoprazole Sodium (Protonix) 40 mg DAILYAC PO Last administered on 11/24/16 06:35; Start 11/24/16 at 07:30 Multivitamins/ Calcium (Thera M Plus) 1 tab DAILY PO Last administered on 08:47; Start 11/24/16 at 09:00 Vitamin E 400 unit DAILY PO Last administered on 11/24/16 08:47; Start 11/24/16 at 09:00 Furosemide (Lasix) 60 mg 1X ONCE IVP ; Start 11/24/16 at 04:30; Stop 11/24/16 at 04:30; Status DC Furosemide 60 mg 60 mg 1X ONCE IVP Last administered on 11/24/16 04:36; Start 11/24/16 at 04:30; Stop 11/24/16 at 04:31; Status DC Sodium Chloride (Iv Sodium Chloride 0.9% 1000ml Bag) 1,000 ml @ 20 mls/hr Q24H IV Last administered on 11/24/16 04:38; Start 11/24/16 at 04:30; Stop 11/24/16 at 04:31; Status DC Sodium Bicarbonate 50 meq 1X ONCE IV Last administered on 11/24/16 04:47; Start 11/24/16 at 05:00; Stop 11/24/16 at 05:01; Status DC Iohexol (Omnipaque 300 Mg/ml) 75 ml 1X ONCE IV ; Start 11/24/16 at 09:00; Stop 11/24/16 at 09:14; Status DC Active Scripts Active Nitrostat (Nitroglycerin) 0.4 Mg Tab.subl 0.4 Mg SL PRN Q5MIN PRN Ranexa (Ranolazine) 500 Mg Tab.er.12h 500 Mg PO BID Reported Multi-Day Vitamins (Multivitamin) 1 Each Tablet 1 Tab PO DAILY Lansoprazole 30 Mg Capsule.dr Valero Cap PO DAILY Clopidogrel (Clopidogrel Bisulfate) 75 Mg Tablet 1 Tab PO DAILY Prinivil (Lisinopril) 20 Mg Tablet 1 Tab PO DAILY [herlax] not given as hospital, may resume as directed Calcium 500 + D Tablet (Calcium Carbonate/Vitamin D3) 1 Each Tablet 1 Each PO DAILY medication was not given at hospital, may resume as directed Vitamin E (Vitamin E Mixed) 400 Unit Tablet 400 Unit PO DAILY medication not given at hospital, may resume as directed. Vitamin C (Ascorbic Acid) 500 Mg Capsule.er 500 Mg PO DAILY medication was not given at hospital, may resume as directed Glucosamine (Glucosamine Sulfate 2KCL) 1,000 Mg Tablet 1,000 Mg PO DAILY medication not given at hospital, may resume as directed Levothyroxine Sodium 112 Mcg Tablet 112 Mcg PO DAILYAC medication not given at hospital, may resume as directed Carvedilol 3.125 Mg Tablet 1 Tab PO BID LAST DOSE GIVEN: DATE:11/13/15 TIME:9:00 a.m. NEXT DOSE DUE: DATE:11/13/15 TIME:6:00 p.m. Simvastatin 20 Mg Tablet 20 Mg PO HS LAST DOSE GIVEN: DATE:11/12/15 TIME:9:00 p.m. NEXT DOSE DUE: DATE:11/13/15 TIME:9:00 p.m. Fina Allergy (Fexofenadine Hcl) 180 Mg Tablet 1 Tab PO DAILY medication not given at hospital, may resume as directed Vitals/I & O Vital Sign - Last 24 Hours 11/23/16 11/23/16 11/23/16 11/23/16 16:23 17:00 18:00 19:00 Temp 99.7 99.7 Pulse 90 86 82 82 Resp 20 20 20 20 B/P 204/98 171/79 172/79 159/85 Pulse Ox 98 93 93 94 O2 Delivery Room Air Room Air Room Air Room Air 11/23/16 11/23/16 11/23/16 11/24/16 20:59 23:00 23:41 03:00 Temp 100.2 98.5 97.8 100.2 98.5 97.8 Pulse 88 87 87 101 Resp 20 20 20 B/P 161/83 136/73 136/73 185/87 Pulse Ox 95 91 92 O2 Delivery Room Air Room Air Nasal Cannula 11/24/16 11/24/16 11/24/16 11/24/16 03:42 04:00 06:37 08:46 Temp 99.5 97.5 99.5 97.5 Pulse 101 102 93 93 Resp 48 40 28 B/P 173/101 162/95 113/75 113/75 Pulse Ox 97 97 97 O2 Delivery Nasal Cannula Simple Mask Simple Mask O2 Flow Rate 3.0 5.0 5.0 11/24/16 11/24/16 08:47 08:48 Pulse 93 93 B/P 113/75 113/75 Intake and Output 11/23/16 11/23/16 11/24/16 15:00 23:00 07:00 Intake Total 240 ml Output Total 1800 ml Balance -1560 ml ALCON RUIZ MD Nov 24, 2016 10:14
[2016-11-24] MEDS ORDERED: POLYETHYLENE GLYCOL 3350 17 GM PACKET. PO PRN (10:15)
[2016-11-24] MEDS ORDERED: DOCUSATE SODIUM 100 MG CAPSULE PO PRN (10:15)
[2016-11-24] MEDS ORDERED: POLYETHYLENE GLYCOL 3350 17 GM PACKET. PO ONE (10:30)
--- NOTE | 2016-11-24 12:53 | PDOC ---
Infectious Disease Note ROS ROS GEN: Denies fevers, chills, sweats HEENT: Denies blurred vision, sore throat CV: Denies chest pain RESP: Denies shortness of air, cough GI: Denies n/v/d NEURO: Denies confusion, dizziness MSK: Denies weakness, joint pain/swelling Vital Sign Vital Signs Vital Signs Date Time Temp Pulse Resp B/P Pulse Ox O2 Delivery O2 Flow Rate FiO2 11/24/16 11:11 97.8 88 20 125/77 98 Nasal Cannula 5.0 97.8 Physical Exam PHYSICAL EXAM GENERAL: NAD, Alert HEENT: PERRL, OC/OP NECK: Supple, no JVD, no LN LUNGS: Clear HEART: S1S2, no gallop, no murmur ABD: Soft, NT, no organomegaly, no rebound EXT: No edema, no cyanosis REJECTOR: Alert, oriented x 3, no focal neurologic deficit SKIN: No rash IV: ok Labs Lab Laboratory Tests Test 11/23/16 17:28 11/23/16 20:05 11/24/16 03:44 11/24/16 04:45 Urine Collection Type Unknown Urine Color Blanquita Urine Clarity Clear Urine pH 7.0 Urine Specific [place] 1.020 Urine Protein Negativemg/dL (NEG-TRACE) Urine Glucose (UA) Negativemg/dL (NEG) Urine Ketones (Stick) Tracemg/dL (NEG) Urine Blood Negative (NEG) Urine Nitrite Negative (NEG) Urine Bilirubin Negative (NEG) Urine Urobilinogen Dipstick 1.0mg/dL (0.2 mg/dL) Urine Leukocyte Esterase Small (NEG) Urine RBC 3-5/HPF (0-2) Urine WBC Occ/HPF (0-4) Urine Squamous Epithelial Cells Occ/LPF Urine Bacteria Few/HPF (0-FEW) White Blood Count 6.1x10^3/uL (4.0-11.0) 7.2x10^3/uL (4.0-11.0) Red Blood Count 4.79x10^6/uL (4.30-5.70) 4.64x10^6/uL (4.30-5.70) Hemoglobin 14.8g/dL (13.0-17.5) 14.2g/dL (13.0-17.5) Hematocrit 42.7% (39.0-53.0) 41.7% (39.0-53.0) Mean Corpuscular Volume 89fL (79-100) 90fL (79-100) Mean Corpuscular Hemoglobin 31pg (25-35) 31pg (25-35) Mean Corpuscular Hemoglobin Concent 35g/dL (31-37) 34g/dL (31-37) Red Cell Distribution Width 12.9% (11.5-14.5) 12.9% (11.5-14.5) Platelet Count 74x10^3/uL (140-400) 65x10^3/uL (140-400) Neutrophils (%) (Auto) 80% (31-73) 86% (31-73) Lymphocytes (%) (Auto) 8% (24-48) 6% (24-48) Monocytes (%) (Auto) 12% (0-9) 8% (0-9) Eosinophils (%) (Auto) 0% (0-3) 0% (0-3) Basophils (%) (Auto) 0% (0-3) 0% (0-3) Neutrophils # (Auto) 4.9x10^3uL (1.8-7.7) 6.2x10^3uL (1.8-7.7) Lymphocytes # (Auto) 0.5x10^3/uL (1.0-4.8) 0.4x10^3/uL (1.0-4.8) Monocytes # (Auto) 0.7x10^3/uL (0.0-1.1) 0.6x10^3/uL (0.0-1.1) Eosinophils # (Auto) 0.0x10^3/uL (0.0-0.7) 0.0x10^3/uL (0.0-0.7) Basophils # (Auto) 0.0x10^3/uL (0.0-0.2) 0.0x10^3/uL (0.0-0.2) Sodium Level 135mmol/L (136-145) 134mmol/L (136-145) Potassium Level 4.2mmol/L (3.5-5.1) 3.7mmol/L (3.5-5.1) Chloride Level 98mmol/L (98-107) 100mmol/L (98-107) Carbon Dioxide Level 31mmol/L (21-32) 28mmol/L (21-32) Anion Gap 6 (6-14) 6 (6-14) Blood Urea Nitrogen 11mg/dL (8-26) 12mg/dL (8-26) Creatinine 0.9mg/dL (0.7-1.3) 0.8mg/dL (0.7-1.3) Estimated GFR (Cockcroft-Gault) 81.4 93.3 Glucose Level 116mg/dL (70-99) 111mg/dL (70-99) Calcium Level 9.1mg/dL (8.5-10.1) 8.3mg/dL (8.5-10.1) Total Bilirubin 0.9mg/dL (0.2-1.0) Direct Bilirubin 0.2mg/dL (0.0-0.2) Aspartate Amino Transf (AST/SGOT) 24U/L (15-37) Alanine Aminotransferase (ALT/SGPT) 22U/L (16-63) Alkaline Phosphatase 69U/L (46-116) Troponin I Quantitative 0.023ng/mL (0.000-0.055) XD-Vgs-W-Type Natriuretic Peptide 715pg/mL (0-449) Total Protein 6.9g/dL (6.4-8.2) Albumin 3.7g/dL (3.4-5.0) Lipase 77U/L (73-393) O2 Saturation 90% (92-99) Arterial Blood pH 7.40 (7.35-7.45) Arterial Blood pCO2 at Patient Temp 38mmHg (35-46) Arterial Blood pO2 at Patient Temp 61mmHg (65-108) Arterial Blood HCO3 23mmol/L (21-28) Arterial Blood Base Excess -2mmol/L (-3-3) FiO2 32.0 Lactic Acid Level 1.1mmol/L (0.4-2.0) Test 11/24/16 07:10 Influenza Type A Antigen Positive (NEGATIVE) Influenza Type B Antigen Negative (NEGATIVE) Objective Assessment Influenza A 2/6 Pneumonia Left pleural effusion Thrombocytopenia / Viral process Plan Plan of Care Cont tamiflu Add Zyvox F/u labs and cults D/w family Thank you # [id number] FRANCIS WINSTON MD Nov 24, 2016 12:53
--- NOTE | 2016-11-24 16:00 | RAD ---
CT of the chest with contrast, 11/24/2016: History: Abnormal chest x-ray, possible hilar mass Multidetector CT imaging was performed following an IV bolus injection of iodinated contrast material. Comparison is made to a study from 08/16/2014. There is moderate calcific plaquing of the thoracic aorta without evidence of aneurysm. Extensive coronary artery calcifications are present. Multiple small mediastinal lymph nodes are present. These have increased in size since the previous study, however, they did not demonstrate definite pathologic enlargement. The kaur are not optimally defined due to motion artifacts and suboptimal vascular opacification, however, no hilar mass is seen. There are mild streaky and groundglass opacities in the lower lobes most prominent in the posterior costophrenic angle on the left. The findings are probably due to atelectasis. There is an air-containing cyst or small pneumatocele in the posterior aspect of the left upper lobe. There appears to be a trace amount of pleural fluid in the posterior costophrenic angles bilaterally. IMPRESSION: 1. Mild bilateral atelectasis in both lower lobes. 2. Tiny pleural effusions. 3. Coronary artery disease.
--- NOTE | 2016-11-24 16:26 | CARD ---
APPROVED REPORT EXAM: Two-dimensional and M-mode echocardiogram with Doppler and color Doppler. Other Information Quality : Technically Limited Rhythm : NSRTechnically limited study due to positioning. INDICATION Cardiac Disease: CAD Congestive Heart Failure 2D DIMENSIONS RVDd2.5 (2.9-3.5cm)Left Atrium(2D)3.1 (1.6-4.0cm) IVSd1.2 (0.7-1.1cm)Aortic Root(2D)2.4 (2.0-3.7cm) LVDd4.5 (3.9-5.9cm)LVOT Diameter1.9 (1.8-2.4cm) PWd1.2 (0.7-1.1cm)LVDs3.0 (2.5-4.0cm) FS (%) 33.6 %SV57.9 ml LVEF(%)62.5 (>50%) M-Mode DIMENSIONS Aortic Cusp Exc1.19 (1.5-2.0cm) Aortic Valve AoV Peak James.119.1cm/sAoV VTI20.8cm AO Peak GR.5.7mmHgLVOT VTI 21.55cm AO Mean GR.3mmHgAVA (VTI)2.09cm2 Mitral Valve MV E Efdkzmpy18.4cm/sMV E Peak Gr.3mmHg MV DECEL [id number] A Dsqumodn53.3cm/s MV E Mean Gr.1mmHgE/A Ratio0.6 MV A [id number] TDI Lateral E' P. V10.76cm/sMedial E' P. V6.22cm/s E/Lateral E'5.2E/Medial E'9.1 Tricuspid Valve TR P. [id number]/sRAP [id number] TR Peak Gr.08yhMfXDMT51elWu LEFT VENTRICLE The left ventricle is normal size. There is normal left ventricular wall thickness. Left ventricle sy stolic function is normal. The Ejection Fraction is 60-65%. There is normal LV segmental wall motion. Tissue Doppler imaging reveals mild left ventricular diastolic dysfunction. RIGHT VENTRICLE The right ventricle is normal size. The right ventricular systolic function is normal. ATRIA The left atrium size is normal. The right atrium size is normal. The interatrial septum is intact wit h no evidence for an atrial septal defect or patent foramen ovale as noted on 2-D or Doppler imaging. AORTIC VALVE The aortic valve is heavily calcified. Doppler and Color Flow revealed mild aortic regurgitation. The re is no significant aortic valvular stenosis. MITRAL VALVE The mitral valve is normal in structure and function. There is no mitral valve stenosis. Doppler and Color Flow revealed mild mitral regurgitation. TRICUSPID VALVE The tricuspid valve is normal in structure and function. Doppler and Color Flow revealed trace to mil d tricuspid regurgitation. The PA pressure was estimated at 26 mmHg. There is no tricuspid valve sten osis. PULMONIC VALVE The pulmonic valve is not well visualized. Doppler and Color Flow revealed no pulmonic valvular regur gitation. There is no pulmonic valvular stenosis. GREAT VESSELS The aortic root is normal in size. Normal pulmonary venous flow (Doppler). The IVC is normal in size and collapses >50% with inspiration. PERICARDIAL EFFUSION There is no evidence of significant pericardial effusion. Critical Notification Critical Value: No <Conclusion> Left ventricle systolic function is normal. The Ejection Fraction is 60-65%. There is normal LV segmental wall motion. Doppler and Color Flow revealed mild aortic regurgitation. Doppler and Color Flow revealed mild mitral regurgitation. Doppler and Color Flow revealed trace to mild tricuspid regurgitation. The PA pressure was estimated at 26 mmHg.
[2016-11-24] MEDS ORDERED: ALBUTEROL SULFATE 2.5 MG/3 ML NEBU. NEB PRN (17:15)
[2016-11-24] MEDS: IPRATRPIUM/ALBUTEROL 0.5/2.5MG 3 ML NEBU. NEB SCH (20:09)
[2016-11-24] MEDS: SIMVASTATIN 20 MG TABLET PO SCH (21:03)
[2016-11-24] MEDS: ACETAMINOPHEN 325 MG TABLET. PO PRN (23:12)
[2016-11-25] VITALS (8 sets, daily range): BP systolic 89–133; BP diastolic 52–76
[2016-11-25] MEDS: PANTOPRAZOLE 40 MG TABLET. PO SCH (06:07)
[2016-11-25] MEDS: LEVOTHYROXINE 112 MCG TABLET PO SCH (06:07)
[2016-11-25] MEDS: IPRATRPIUM/ALBUTEROL 0.5/2.5MG 3 ML NEBU. NEB SCH ×3 (07:10→15:05)
[2016-11-25] MEDS: MULTIVITAMIN with MINERAL TABLET. PO SCH (08:36)
[2016-11-25] MEDS: ASCORBIC ACID 500 MG TABLET PO SCH (08:36)
[2016-11-25] MEDS: CALCIUM CARB/VIT D3 500/200 TABLET PO SCH (08:36)
[2016-11-25] MEDS: CETIRIZINE HCL 10 MG TABLET PO SCH (08:36)
[2016-11-25] MEDS: OSELTAMIVIR 75 MG CAPSULE PO SCH ×2 (08:36→20:39)
[2016-11-25] MEDS: VITAMIN E 200 UNIT CAPSULE. PO SCH (08:36)
[2016-11-25] MEDS: CLOPIDOGREL BISULFATE 75 MG TABLET PO SCH (08:36)
[2016-11-25] MEDS: RANOLAZINE 500 MG TAB.ER.12H PO SCH ×2 (08:38→20:39)
[2016-11-25] MEDS: LISINOPRIL 20 MG TABLET PO SCH (08:39)
[2016-11-25] MEDS: CARVEDILOL 3.125 MG TABLET PO SCH ×2 (08:39→18:07)
--- NOTE | 2016-11-25 09:58 | PDOC ---
Infectious Disease Note Subjective Subjective Patient feeling ok this am. Developed a fever of 101.8 last evening. Patient denies any chills or night sweats. Still has a cough with intermittent clear sputum production. Eating ok. ROS ROS GEN: Denies chills, sweats, [place] HEENT: Denies blurred vision, sore throat CV: Denies chest pain RESP: Denies shortness of air, intermittent productive cough GI: Denies n/v/d NEURO: Denies confusion, dizziness MSK: Denies weakness, joint pain/swelling Vital Sign Vital Signs Vital Signs Date Time Temp Pulse Resp B/P Pulse Ox O2 Delivery O2 Flow Rate FiO2 11/25/16 09:49 83 89/52 11/25/16 07:00 97.6 17 97 Nasal Cannula 5.0 97.6 Physical Exam PHYSICAL EXAM GENERAL: NAD, Alert HEENT: PERRL, OC/OP - clear NECK: Supple, no JVD, no LN LUNGS: Slight crackles in b/l lung bases, on 02 HEART: S1S2, no gallop, no murmur ABD: Soft, NT, no organomegaly, no rebound EXT: No edema, no cyanosis ROASTMASTER: Alert, oriented x 3, no focal neurologic deficit SKIN: No rash IV: ok Objective Assessment Influenza A 2/6 Pneumonia - CT small effusions Left pleural effusion Thrombocytopenia / Viral process Plan Plan of Care Cont tamiflu Cont Zyvox F/u labs and cults D/w family FRANCIS WINSTON MD Nov 25, 2016 09:58
[2016-11-25] MEDS: IV NORMAL SALINE 1000ML BAG 1,000 ML IV SCH ×2 (10:00→20:38)
--- NOTE | 2016-11-25 14:40 | PDOC ---
PULMONARY PROGRESS NOTES Subjective feels better Vitals Vital Signs Date Time Temp Pulse Resp B/P Pulse Ox O2 Delivery O2 Flow Rate FiO2 11/25/16 11:00 97.9 76 19 116/68 95 Nasal Cannula 5.0 97.9 General: Alert, No acute distress Lungs: Other (decrease bs) Cardiovascular: S1 Abdomen: Soft Neuro Exam: Alert Extremities: No Edema Skin: Warm Labs Laboratory Tests Test 11/23/16 17:28 11/23/16 20:05 11/24/16 03:44 11/24/16 04:45 Urine Collection Type Unknown Urine Color [place] Urine Clarity Clear Urine pH 7.0 Urine Specific [place] 1.020 Urine Protein Negativemg/dL (NEG-TRACE) Urine Glucose (UA) Negativemg/dL (NEG) Urine Ketones (Stick) Tracemg/dL (NEG) Urine Blood Negative (NEG) Urine Nitrite Negative (NEG) Urine Bilirubin Negative (NEG) Urine Urobilinogen Dipstick 1.0mg/dL (0.2 mg/dL) Urine Leukocyte Esterase Small (NEG) Urine RBC 3-5/HPF (0-2) Urine WBC Occ/HPF (0-4) Urine Squamous Epithelial Cells Occ/LPF Urine Bacteria Few/HPF (0-FEW) White Blood Count 6.1x10^3/uL (4.0-11.0) 7.2x10^3/uL (4.0-11.0) Red Blood Count 4.79x10^6/uL (4.30-5.70) 4.64x10^6/uL (4.30-5.70) Hemoglobin 14.8g/dL (13.0-17.5) 14.2g/dL (13.0-17.5) Hematocrit 42.7% (39.0-53.0) 41.7% (39.0-53.0) Mean Corpuscular Volume 89fL (79-100) 90fL (79-100) Mean Corpuscular Hemoglobin 31pg (25-35) 31pg (25-35) Mean Corpuscular Hemoglobin Concent 35g/dL (31-37) 34g/dL (31-37) Red Cell Distribution Width 12.9% (11.5-14.5) 12.9% (11.5-14.5) Platelet Count 74x10^3/uL (140-400) 65x10^3/uL (140-400) Neutrophils (%) (Auto) 80% (31-73) 86% (31-73) Lymphocytes (%) (Auto) 8% (24-48) 6% (24-48) Monocytes (%) (Auto) 12% (0-9) 8% (0-9) Eosinophils (%) (Auto) 0% (0-3) 0% (0-3) Basophils (%) (Auto) 0% (0-3) 0% (0-3) Neutrophils # (Auto) 4.9x10^3uL (1.8-7.7) 6.2x10^3uL (1.8-7.7) Lymphocytes # (Auto) 0.5x10^3/uL (1.0-4.8) 0.4x10^3/uL (1.0-4.8) Monocytes # (Auto) 0.7x10^3/uL (0.0-1.1) 0.6x10^3/uL (0.0-1.1) Eosinophils # (Auto) 0.0x10^3/uL (0.0-0.7) 0.0x10^3/uL (0.0-0.7) Basophils # (Auto) 0.0x10^3/uL (0.0-0.2) 0.0x10^3/uL (0.0-0.2) Sodium Level 135mmol/L (136-145) 134mmol/L (136-145) Potassium Level 4.2mmol/L (3.5-5.1) 3.7mmol/L (3.5-5.1) Chloride Level 98mmol/L (98-107) 100mmol/L (98-107) Carbon Dioxide Level 31mmol/L (21-32) 28mmol/L (21-32) Anion Gap 6 (6-14) 6 (6-14) Blood Urea Nitrogen 11mg/dL (8-26) 12mg/dL (8-26) Creatinine 0.9mg/dL (0.7-1.3) 0.8mg/dL (0.7-1.3) Estimated GFR (Cockcroft-Gault) 81.4 93.3 Glucose Level 116mg/dL (70-99) 111mg/dL (70-99) Calcium Level 9.1mg/dL (8.5-10.1) 8.3mg/dL (8.5-10.1) Total Bilirubin 0.9mg/dL (0.2-1.0) Direct Bilirubin 0.2mg/dL (0.0-0.2) Aspartate Amino Transf (AST/SGOT) 24U/L (15-37) Alanine Aminotransferase (ALT/SGPT) 22U/L (16-63) Alkaline Phosphatase 69U/L (46-116) Troponin I Quantitative 0.023ng/mL (0.000-0.055) UQ-Saw-S-Type Natriuretic Peptide 715pg/mL (0-449) Total Protein 6.9g/dL (6.4-8.2) Albumin 3.7g/dL (3.4-5.0) Lipase 77U/L (73-393) O2 Saturation 90% (92-99) Arterial Blood pH 7.40 (7.35-7.45) Arterial Blood pCO2 at Patient Temp 38mmHg (35-46) Arterial Blood pO2 at Patient Temp 61mmHg (65-108) Arterial Blood HCO3 23mmol/L (21-28) Arterial Blood Base Excess -2mmol/L (-3-3) FiO2 32.0 Lactic Acid Level 1.1mmol/L (0.4-2.0) Test 11/24/16 07:10 Influenza Type A Antigen Positive (NEGATIVE) Influenza Type B Antigen Negative (NEGATIVE) Medications Active Scripts Medications Dose Route/Sig Days Date Category Dose Instructions Multi-Day Vitamins (Multivitamin) 1 Each Tablet 1 Tab PO DAILY 11/23/16 Reported Lansoprazole 30 Mg Capsule.dr [place] Cap PO DAILY 11/23/16 Reported Clopidogrel (Clopidogrel Bisulfate) 75 Mg Tablet 1 Tab PO DAILY 11/23/16 Reported Prinivil (Lisinopril) 20 Mg Tablet 1 Tab PO DAILY 11/23/16 Reported [herlax] 11/12/15 Reported not given as hospital, may resume as directed Calcium 500 + D Tablet (Calcium Carbonate/Vitamin D3) 1 Each Tablet 1 Each PO DAILY 11/12/15 Reported medication was not given at hospital, may resume as directed Vitamin E (Vitamin E Mixed) 400 Unit Tablet 400 Unit PO DAILY 10/25/15 Reported medication not given at hospital, may resume as directed. Vitamin C (Ascorbic Acid) 500 Mg Capsule.er 500 Mg PO DAILY 10/25/15 Reported medication was not given at hospital, may resume as directed Glucosamine (Glucosamine Sulfate 2KCL) 1,000 Mg Tablet 1,000 Mg PO DAILY 10/25/15 Reported medication not given at hospital, may resume as directed Levothyroxine Sodium 112 Mcg Tablet 112 Mcg PO DAILYAC 10/25/15 Reported medication not given at hospital, may resume as directed Nitrostat (Nitroglycerin) 0.4 Mg Tab.subl 0.4 Mg SL PRN Q5MIN PRN 08/17/14 Rx Ranexa (Ranolazine) 500 Mg Tab.er.12h 500 Mg PO BID 08/17/14 Rx Carvedilol 3.125 Mg Tablet 1 Tab PO BID 08/17/14 Reported LAST DOSE GIVEN: DATE:11/13/15 TIME:9:00 a.m. NEXT DOSE DUE: DATE:11/13/15 TIME:6:00 p.m. Simvastatin 20 Mg Tablet 20 Mg PO HS 08/17/14 Reported LAST DOSE GIVEN: DATE:11/12/15 TIME:9:00 p.m. NEXT DOSE DUE: DATE:11/13/15 TIME:9:00 p.m. Fina Allergy (Fexofenadine Hcl) 180 Mg Tablet 1 Tab PO DAILY 08/17/14 Reported medication not given at hospital, may resume as directed Comments CT CHEST 1. Mild bilateral atelectasis in both lower lobes. 2. Tiny pleural effusions. 3. Coronary artery disease. Impression . 1. Acute hypoxic respiratory failure secondary to influenza A. 2. Abnormal chest x-ray with asymmetric rounded density in the right hilar area could be mass or adenopathy or pulmonary artery shadow, needs to have CT chest for better evaluation. 3. Possible underlying chronic obstructive pulmonary disease. 4. Influenza A. Plan . 1. Continue with present oxygen with gradual weaning. 2. Continue with Tamiflu. 3. P.r.n. bronchodilators. 4. CT chest reviewed, no mass or adenopathy 5. Monitor for any fevers. 6. Respiratory isolation for influenza. 7. Discussed with family LAYTON VAZQUEZ MD Nov 25, 2016 14:40
--- NOTE | 2016-11-25 14:41 | CONS ---
DATE OF CONSULTATION: 11/24/2016 ROOM: 502. REQUESTING PHYSICIAN: Mingo Hathaway MD REASON FOR CONSULTATION: Influenza. HISTORY OF PRESENT ILLNESS: The patient is a 81-year-old gentleman who on the evening of 11/20/2016 began to feel somewhat tired. On Wednesday, he developed increased achiness. He began to run fevers. He presented to his primary care physician on 11/23/2016 and did a flu swab and it returned positive. He was feeling dizzy. He had fallen one time at home and in the primary care doctor's office and was sent to [facility]. He denies any trauma to his head. On arrival, white count 6.1, platelets were 74. Additionally, he had an initial temperature of 99.7, but it increased to 102 axillary. He was placed on Tamiflu and underwent a chest x-ray, showed ____ asymmetric density in the right hilum ____ not excluded. He has just returned from CT scan. Currently, he is sitting upright in bed. He denies any current dizziness now, denies any trauma from falling, has little sinus congestion, occasional cough. No nausea, vomiting, diarrhea, dysuria, frequency, or urgency. PAST MEDICAL HISTORY: Positive for coronary artery disease, history of stents, hypertension, hyperkalemia, gastroesophageal reflux disease, BPH, and hypothyroidism. PAST SURGICAL HISTORY: Positive for left shoulder surgery, right foot surgery as well as the stenting. REVIEW OF SYSTEMS: Otherwise negative except for mentioned above. ALLERGIES: No known drug allergies. SOCIAL HISTORY: He is . His is currently with him, quit tobacco more than 25 years ago. FAMILY HISTORY: Positive for hypertension. CURRENT MEDICATIONS: Include Coreg, Zyrtec, Plavix, Colace, Lasix, Prinivil, Synthroid, Tamiflu, and Protonix. Other meds are available and reviewed in the chart. PHYSICAL EXAMINATION: VITAL SIGNS: Temperature currently 97.8, pulse 88, respirations 20, and blood pressure 125/77. He is on 5 liters nasal cannula, satting 98%. CONSTITUTIONAL: He is pleasant, cooperative, in no acute distress. HEENT: Pupils are equal and reactive. Oral cavity, pharynx is clear. NECK: Supple, no JVD. LUNGS: Decreased in the bases. HEART: S1, S2. ABDOMEN: Soft, nontender, and nondistended, positive bowel sounds. EXTREMITIES: No clubbing or cyanosis with trace edema. SKIN: Warm to touch without signs of rash. NEUROLOGIC: Slow to respond to questions, but answered appropriately, moves all extremities. PSYCHIATRIC: Affect was somewhat flat. LABORATORY DATA: White count 7.2, hemoglobin 14.2, platelets of 65, neutrophils of 86. Glucose 111. He had normal liver function study tests on arrival. BNP was 715. Urinalysis clear. Influenza screen was positive. CT scan is pending, but by my eye appears to have a left pleural effusion. IMPRESSION: 1. Influenza A from 11/23/2016. 2. Pneumonia. 3. Left pleural effusion. 4. Thrombocytopenia, questionable secondary to a viral process. RECOMMENDATIONS: We will continue the Tamiflu, will add Zyvox as Staph aureus is a risk factor. Follow up with labs and cultures. This was discussed with his family. Thank you for allowing me to participate in this patient's care. Should you have any questions, please do not hesitate to contact me. FRANCIS WINSTON MD DR: RICARDO/rohini JOB#: [id number] / [id number]
[2016-11-25] MEDS: GUAIFENESIN DM 200MG/20MG 10 ML SYRUP. PO PRN (20:38)
[2016-11-25] MEDS: SIMVASTATIN 20 MG TABLET PO SCH (20:38)
--- NOTE | 2016-11-25 21:27 | PDOC ---
PROGRESS NOTES Chief Complaint Chief Complaint sepsis, viral influenza A COPD possible constipation marked weakness History of Present Illness History of Present Illness very weak, lethargic, unable to ambulate needs ongoing symptom management antitussives nebs, pulm toilet PT and OT Vitals Vitals Vital Signs Date Time Temp Pulse Resp B/P Pulse Ox O2 Delivery O2 Flow Rate FiO2 11/25/16 20:39 83 111/72 11/25/16 19:05 Nasal Cannula 5.0 11/25/16 19:00 97.8 18 97 97.8 Physical Exam General: Alert, Oriented X3, Cooperative, No acute distress Heart: Regular rate, Normal S1, Normal S2, No murmurs, Other (tele: SR) Lungs: Other (decrease bs) Abdomen: Soft, No tenderness Extremities: No clubbing, No cyanosis, No edema, Normal pulses Skin: No breakdown, No significant lesion Review of Systems Review of Systems no n/v/d Assessment and Plan Assessmemt and Plan Problems Medical Problems: (1) Dehydration Status: Acute (2) Influenza Status: Acute (3) Influenza Status: Acute Problems: Comment Review of Relevant I have reviewed the following items erika (where applicable) has been applied. Labs Laboratory Tests Test 11/24/16 03:44 11/24/16 04:45 11/24/16 07:10 O2 Saturation 90% (92-99) Arterial Blood pH 7.40 (7.35-7.45) Arterial Blood pCO2 at Patient Temp 38mmHg (35-46) Arterial Blood pO2 at Patient Temp 61mmHg (65-108) Arterial Blood HCO3 23mmol/L (21-28) Arterial Blood Base Excess -2mmol/L (-3-3) FiO2 32.0 White Blood Count 7.2x10^3/uL (4.0-11.0) Red Blood Count 4.64x10^6/uL (4.30-5.70) Hemoglobin 14.2g/dL (13.0-17.5) Hematocrit 41.7% (39.0-53.0) Mean Corpuscular Volume 90fL (79-100) Mean Corpuscular Hemoglobin 31pg (25-35) Mean Corpuscular Hemoglobin Concent 34g/dL (31-37) Red Cell Distribution Width 12.9% (11.5-14.5) Platelet Count 65x10^3/uL (140-400) Neutrophils (%) (Auto) 86% (31-73) Lymphocytes (%) (Auto) 6% (24-48) Monocytes (%) (Auto) 8% (0-9) Eosinophils (%) (Auto) 0% (0-3) Basophils (%) (Auto) 0% (0-3) Neutrophils # (Auto) 6.2x10^3uL (1.8-7.7) Lymphocytes # (Auto) 0.4x10^3/uL (1.0-4.8) Monocytes # (Auto) 0.6x10^3/uL (0.0-1.1) Eosinophils # (Auto) 0.0x10^3/uL (0.0-0.7) Basophils # (Auto) 0.0x10^3/uL (0.0-0.2) Sodium Level 134mmol/L (136-145) Potassium Level 3.7mmol/L (3.5-5.1) Chloride Level 100mmol/L (98-107) Carbon Dioxide Level 28mmol/L (21-32) Anion Gap 6 (6-14) Blood Urea Nitrogen 12mg/dL (8-26) Creatinine 0.8mg/dL (0.7-1.3) Estimated GFR (Cockcroft-Gault) 93.3 Glucose Level 111mg/dL (70-99) Lactic Acid Level 1.1mmol/L (0.4-2.0) Calcium Level 8.3mg/dL (8.5-10.1) Influenza Type A Antigen Positive (NEGATIVE) Influenza Type B Antigen Negative (NEGATIVE) Microbiology 11/23/16 Urine Culture - Final, Complete 11/23/16 Urine Culture Result 1 (MAGUI) - Final, Complete Medications Current Medications Oseltamivir Phosphate (Tamiflu) 75 mg BID PO Last administered on 11/25/16t 20: 39; Start 11/23/16 at 21:00; Stop 11/28/16 at 20:59 Ondansetron HCl (Zofran) 4 mg PRN Q8HRS PRN IV NAUSEA/VOMITING; Start 11/23/16 at 19:15; Stop 11/24/16 at 19:14; Status DC Morphine Sulfate 2 mg 2 mg PRN Q2HR PRN IV PAIN; Start 11/23/16 at 19:15; Stop 11/24/16 at 19:14; Status DC Sodium Chloride (Iv Sodium Chloride 0.9% 1000ml Bag) 1,000 ml @ 125 mls/hr Q8H IV Last administered on 11/23/16 20:13; Start 11/23/16 at 19:10; Stop 11/24/16 at 04:19; Status DC Acetaminophen (Tylenol) 650 mg PRN Q6HRS PRN PO MILD PAIN / TEMP Last administered on 11/24/16 23:12; Start 11/23/16 at 21:30 Carvedilol (Coreg) 3.125 mg BIDWMEALS PO Last administered on 11/25/16 18:07; Start 11/24/16 at 08:00 Clopidogrel Bisulfate (Plavix) 75 mg DAILY PO Last administered on 11/25/16 08: 36; Start 11/24/16 at 09:00 Levothyroxine Sodium (Synthroid) 112 mcg DAILY07 PO Last administered on 06:07; Start 11/24/16 at 07:00 Lisinopril (Prinivil) 20 mg DAILY PO Last administered on 11/25/16 08:39; Start 11/24/16 at 09:00 Ranolazine (Ranexa) 500 mg BID PO Last administered on 11/25/16 20:39; Start at 23:00 Simvastatin (Zocor) 20 mg HS PO Last administered on 11/25/16 20:38; Start 11/23 at 23:00 Ascorbic Acid (Vitamin C) 500 mg DAILY PO Last administered on 11/25/16 08:36; Start 11/24/16 at 09:00 Calcium/Vitamin D (Oscal D 500mg/ 200uts) 1 tab DAILY PO Last administered on 08:36; Start 11/24/16 at 09:00 Cetirizine HCl (Zyrtec) 10 mg DAILY PO Last administered on 11/25/16 08:36; Start 11/24/16 at 09:00 Non-Formulary Medication 1,000 mg DAILY PO supplement; Start 11/24/16 at 09:00; Status UNV Pantoprazole Sodium (Protonix) 40 mg DAILYAC PO Last administered on 11/25/16 06:07; Start 11/24/16 at 07:30 Multivitamins/ Calcium (Thera M Plus) 1 tab DAILY PO Last administered on 08:36; Start 11/24/16 at 09:00 Vitamin E 400 unit DAILY PO Last administered on 11/25/16 08:36; Start 11/24/16 at 09:00 Furosemide (Lasix) 60 mg 1X ONCE IVP ; Start 11/24/16 at 04:30; Stop 11/24/16 at 04:30; Status DC Furosemide 60 mg 60 mg 1X ONCE IVP Last administered on 11/24/16 04:36; Start 11/24/16 at 04:30; Stop 11/24/16 at 04:31; Status DC Sodium Chloride (Iv Sodium Chloride 0.9% 1000ml Bag) 1,000 ml @ 20 mls/hr Q24H IV Last administered on 11/24/16 04:38; Start 11/24/16 at 04:30; Stop 11/24/16 at 04:31; Status DC Sodium Bicarbonate 50 meq 1X ONCE IV Last administered on 11/24/16 04:47; Start 11/24/16 at 05:00; Stop 11/24/16 at 05:01; Status DC Iohexol (Omnipaque 300 Mg/ml) 75 ml 1X ONCE IV ; Start 11/24/16 at 09:00; Stop 11/24/16 at 09:14; Status DC Guaifenesin (Robitussin Dm) 10 ml PRN Q6HRS PRN PO COUGH Last administered on 20:38; Start 11/24/16 at 10:15 Polyethylene Glycol (miraLAX PACKET) 17 gm 1X ONCE PO Last administered on 11/24 10:34; Start 11/24/16 at 10:30; Stop 11/24/16 at 10:31; Status DC Polyethylene Glycol (miraLAX PACKET) 17 gm PRN DAILY PRN PO CONSTIPATION, 1ST CHOICE; Start 11/24/16 at 10:15 Docusate Sodium 100 mg 100 mg PRN DAILY PRN PO CONSTIPATION, 2ND CHOICE; Start 11/24/16 at 10:15 Linezolid (Zyvox Premix) 300 ml @ 300 mls/hr Q12HR IV Last administered on 11/25 20:38; Start 11/24/16 at 13:00 Albuterol/ Ipratropium (Duoneb) 3 ml RTQID NEB Last administered on 11/25/16 15 :05; Start 11/24/16 at 20:00 Albuterol Sulfate 2.5 mg 2.5 mg PRN Q4HRS PRN NEB WHEEZES; Start 11/24/16 at 17: 15 Sodium Chloride (Iv Sodium Chloride 0.9% 1000ml Bag) 1,000 ml @ 100 mls/hr Q10H IV Last administered on 11/25/16 20:38; Start 11/25/16 at 10:00 Active Scripts Active Nitrostat (Nitroglycerin) 0.4 Mg Tab.subl 0.4 Mg SL PRN Q5MIN PRN Ranexa (Ranolazine) 500 Mg Tab.er.12h 500 Mg PO BID Reported Multi-Day Vitamins (Multivitamin) 1 Each Tablet 1 Tab PO DAILY Lansoprazole 30 Mg Capsule.dr 1 Cap PO DAILY Clopidogrel (Clopidogrel Bisulfate) 75 Mg Tablet 1 Tab PO DAILY Prinivil (Lisinopril) 20 Mg Tablet 1 Tab PO DAILY [herlax] not given as hospital, may resume as directed Calcium 500 + D Tablet (Calcium Carbonate/Vitamin D3) 1 Each Tablet 1 Each PO DAILY medication was not given at hospital, may resume as directed Vitamin E (Vitamin E Mixed) 400 Unit Tablet 400 Unit PO DAILY medication not given at hospital, may resume as directed. Vitamin C (Ascorbic Acid) 500 Mg Capsule.er 500 Mg PO DAILY medication was not given at hospital, may resume as directed Glucosamine (Glucosamine Sulfate 2KCL) 1,000 Mg Tablet 1,000 Mg PO DAILY medication not given at hospital, may resume as directed Levothyroxine Sodium 112 Mcg Tablet 112 Mcg PO DAILYAC medication not given at hospital, may resume as directed Carvedilol 3.125 Mg Tablet 1 Tab PO BID LAST DOSE GIVEN: DATE:11/13/15 TIME:9:00 a.m. NEXT DOSE DUE: DATE:11/13/15 TIME:6:00 p.m. Simvastatin 20 Mg Tablet 20 Mg PO HS LAST DOSE GIVEN: DATE:11/12/15 TIME:9:00 p.m. NEXT DOSE DUE: DATE:11/13/15 TIME:9:00 p.m. Fina Allergy (Fexofenadine Hcl) 180 Mg Tablet 1 Tab PO DAILY medication not given at hospital, may resume as directed Vitals/I & O Vital Sign - Last 24 Hours 11/24/16 11/25/16 11/25/16 11/25/16 23:00 03:00 07:00 08:00 Temp 101.8 98.2 97.6 101.8 98.2 97.6 Pulse 86 61 60 Resp 20 20 17 B/P 129/74 115/68 117/66 Pulse Ox 93 96 97 O2 Delivery Nasal Cannula Nasal Cannula Nasal Cannula Nasal Cannula O2 Flow Rate 5.0 5.0 5.0 5.0 11/25/16 11/25/16 11/25/16 11/25/16 08:38 08:39 08:39 09:48 Pulse 67 67 67 75 B/P 112/65 112/65 112/65 133/74 11/25/16 11/25/16 11/25/16 11/25/16 09:49 10:59 11:00 15:00 Temp 97.9 97.7 97.9 97.7 Pulse 83 76 72 Resp 19 19 B/P 89/52 116/68 117/67 Pulse Ox 96 95 97 O2 Delivery Nasal Cannula Nasal Cannula Nasal Cannula O2 Flow Rate 5.0 5.0 5.0 11/25/16 11/25/16 11/25/16 11/25/16 15:06 18:07 19:00 19:05 Temp 97.8 97.8 Pulse 111 83 Resp 18 B/P 122/82 111/72 Pulse Ox 97 O2 Delivery Nasal Cannula Nasal Cannula Nasal Cannula O2 Flow Rate 5.0 5.0 5.0 11/25/16 20:39 Pulse 83 B/P 111/72 Intake and Output 11/24/16 11/24/16 11/25/16 15:00 23:00 07:00 Intake Total 420 ml 1380 ml 170 ml Output Total 400 ml 250 ml 600 ml Balance 20 ml 1130 ml -430 ml ALCON RUIZ MD Nov 25, 2016 21:27
[2016-11-26 03:00] VITALS: BP 122/78
[2016-11-26] MEDS: PANTOPRAZOLE 40 MG TABLET. PO SCH (05:46)
[2016-11-26] MEDS: LEVOTHYROXINE 112 MCG TABLET PO SCH (05:46)
[2016-11-26 06:20] LABS: BASO % 0 % (0-3); EOS % 0 % (0-3); HEMATOCRIT 38.6 % (39.0-53.0); HEMOGLOBIN 13.7 g/dL (13.0-17.5); LYMPH % 21 % (24-48); MEAN CORPUSCULAR HEMOGLOBIN 31 pg (25-35); MEAN CORPUSCULAR HGB CONC 36 g/dL (31-37); MEAN CORPUSCULAR VOLUME 87 fL (79-100); MONO % 9 % (0-9); NEUT % 70 % (31-73); PLATELET COUNT 82 x10^3/uL (140-400); RED BLOOD COUNT 4.45 x10^6/uL (4.30-5.70); RED CELL DISTRIBUTION WIDTH 12.9 % (11.5-14.5)
[2016-11-26 06:36] LABS: CALCIUM 8.4 mg/dL (8.5-10.1); CREATININE 0.8 mg/dL (0.7-1.3); GFR 93.3
[2016-11-26 06:38] LABS: POTASSIUM 2.8 mmol/L (3.5-5.1)
[2016-11-26 07:00] VITALS: BP 133/81
[2016-11-26] MEDS: IV NORMAL SALINE 1000ML BAG 1,000 ML IV SCH ×2 (07:16→20:10)
[2016-11-26] MEDS: CARVEDILOL 3.125 MG TABLET PO SCH ×2 (07:16→17:21)
[2016-11-26] MEDS ORDERED: POTASSIUM CHLORIDE 20 MEQ TABLET.ER. PO ONE ×2 (07:30→11:30)
[2016-11-26] MEDS: IPRATRPIUM/ALBUTEROL 0.5/2.5MG 3 ML NEBU. NEB SCH ×4 (07:48→20:41)
[2016-11-26] MEDS: ASCORBIC ACID 500 MG TABLET PO SCH (08:37)
[2016-11-26] MEDS: RANOLAZINE 500 MG TAB.ER.12H PO SCH ×2 (08:37→20:10)
[2016-11-26] MEDS: VITAMIN E 200 UNIT CAPSULE. PO SCH (08:37)
[2016-11-26] MEDS: LISINOPRIL 20 MG TABLET PO SCH (08:38)
[2016-11-26] MEDS: CLOPIDOGREL BISULFATE 75 MG TABLET PO SCH (08:38)
[2016-11-26] MEDS: OSELTAMIVIR 75 MG CAPSULE PO SCH ×2 (08:38→20:10)
[2016-11-26] MEDS: CALCIUM CARB/VIT D3 500/200 TABLET PO SCH (08:38)
[2016-11-26] MEDS: MULTIVITAMIN with MINERAL TABLET. PO SCH (08:38)
[2016-11-26] MEDS: CETIRIZINE HCL 10 MG TABLET PO SCH (08:38)
[2016-11-26 10:50] VITALS: BP 122/69
--- NOTE | 2016-11-26 11:04 | PDOC ---
PULMONARY PROGRESS NOTES Subjective feels better Vitals Vital Signs Date Time Temp Pulse Resp B/P Pulse Ox O2 Delivery O2 Flow Rate FiO2 11/26/16 10:50 97.9 67 18 122/69 99 Nasal Cannula 3.0 97.9 General: Alert, No acute distress Lungs: Other (decrease bs) Cardiovascular: S1 Abdomen: Soft Neuro Exam: Alert Extremities: No Edema Skin: Warm Labs Laboratory Tests Test 11/26/16 05:35 White Blood Count 5.0x10^3/uL (4.0-11.0) Red Blood Count 4.45x10^6/uL (4.30-5.70) Hemoglobin 13.7g/dL (13.0-17.5) Hematocrit 38.6% (39.0-53.0) Mean Corpuscular Volume 87fL (79-100) Mean Corpuscular Hemoglobin 31pg (25-35) Mean Corpuscular Hemoglobin Concent 36g/dL (31-37) Red Cell Distribution Width 12.9% (11.5-14.5) Platelet Count 82x10^3/uL (140-400) Neutrophils (%) (Auto) 70% (31-73) Lymphocytes (%) (Auto) 21% (24-48) Monocytes (%) (Auto) 9% (0-9) Eosinophils (%) (Auto) 0% (0-3) Basophils (%) (Auto) 0% (0-3) Neutrophils # (Auto) 3.5x10^3uL (1.8-7.7) Lymphocytes # (Auto) 1.0x10^3/uL (1.0-4.8) Monocytes # (Auto) 0.4x10^3/uL (0.0-1.1) Eosinophils # (Auto) 0.0x10^3/uL (0.0-0.7) Basophils # (Auto) 0.0x10^3/uL (0.0-0.2) Sodium Level 141mmol/L (136-145) Potassium Level 2.8mmol/L (3.5-5.1) Chloride Level 104mmol/L (98-107) Carbon Dioxide Level 31mmol/L (21-32) Anion Gap 6 (6-14) Blood Urea Nitrogen 16mg/dL (8-26) Creatinine 0.8mg/dL (0.7-1.3) Estimated GFR (Cockcroft-Gault) 93.3 Glucose Level 91mg/dL (70-99) Calcium Level 8.4mg/dL (8.5-10.1) Laboratory Tests Test 11/26/16 05:35 White Blood Count 5.0x10^3/uL (4.0-11.0) Red Blood Count 4.45x10^6/uL (4.30-5.70) Hemoglobin 13.7g/dL (13.0-17.5) Hematocrit 38.6% (39.0-53.0) Mean Corpuscular Volume 87fL (79-100) Mean Corpuscular Hemoglobin 31pg (25-35) Mean Corpuscular Hemoglobin Concent 36g/dL (31-37) Red Cell Distribution Width 12.9% (11.5-14.5) Platelet Count 82x10^3/uL (140-400) Neutrophils (%) (Auto) 70% (31-73) Lymphocytes (%) (Auto) 21% (24-48) Monocytes (%) (Auto) 9% (0-9) Eosinophils (%) (Auto) 0% (0-3) Basophils (%) (Auto) 0% (0-3) Neutrophils # (Auto) 3.5x10^3uL (1.8-7.7) Lymphocytes # (Auto) 1.0x10^3/uL (1.0-4.8) Monocytes # (Auto) 0.4x10^3/uL (0.0-1.1) Eosinophils # (Auto) 0.0x10^3/uL (0.0-0.7) Basophils # (Auto) 0.0x10^3/uL (0.0-0.2) Sodium Level 141mmol/L (136-145) Potassium Level 2.8mmol/L (3.5-5.1) Chloride Level 104mmol/L (98-107) Carbon Dioxide Level 31mmol/L (21-32) Anion Gap 6 (6-14) Blood Urea Nitrogen 16mg/dL (8-26) Creatinine 0.8mg/dL (0.7-1.3) Estimated GFR (Cockcroft-Gault) 93.3 Glucose Level 91mg/dL (70-99) Calcium Level 8.4mg/dL (8.5-10.1) Medications Active Scripts Medications Dose Route/Sig Days Date Category Dose Instructions Multi-Day Vitamins (Multivitamin) 1 Each Tablet 1 Tab PO DAILY 11/23/16 Reported Lansoprazole 30 Mg Capsule.dr 1 Cap PO DAILY 11/23/16 Reported Clopidogrel (Clopidogrel Bisulfate) 75 Mg Tablet 1 Tab PO DAILY 11/23/16 Reported Prinivil (Lisinopril) 20 Mg Tablet 1 Tab PO DAILY 11/23/16 Reported [herlax] 11/12/15 Reported not given as hospital, may resume as directed Calcium 500 + D Tablet (Calcium Carbonate/Vitamin D3) 1 Each Tablet 1 Each PO DAILY 11/12/15 Reported medication was not given at hospital, may resume as directed Vitamin E (Vitamin E Mixed) 400 Unit Tablet 400 Unit PO DAILY 10/25/15 Reported medication not given at hospital, may resume as directed. Vitamin C (Ascorbic Acid) 500 Mg Capsule.er 500 Mg PO DAILY 10/25/15 Reported medication was not given at hospital, may resume as directed Glucosamine (Glucosamine Sulfate 2KCL) 1,000 Mg Tablet 1,000 Mg PO DAILY 10/25/15 Reported medication not given at hospital, may resume as directed Levothyroxine Sodium 112 Mcg Tablet 112 Mcg PO DAILYAC 10/25/15 Reported medication not given at hospital, may resume as directed Nitrostat (Nitroglycerin) 0.4 Mg Tab.subl 0.4 Mg SL PRN Q5MIN PRN 08/17/14 Rx Ranexa (Ranolazine) 500 Mg Tab.er.12h 500 Mg PO BID 08/17/14 Rx Carvedilol 3.125 Mg Tablet 1 Tab PO BID 08/17/14 Reported LAST DOSE GIVEN: DATE:11/13/15 TIME:9:00 a.m. NEXT DOSE DUE: DATE:11/13/15 TIME:6:00 p.m. Simvastatin 20 Mg Tablet 20 Mg PO HS 08/17/14 Reported LAST DOSE GIVEN: DATE:11/12/15 TIME:9:00 p.m. NEXT DOSE DUE: DATE:11/13/15 TIME:9:00 p.m. Fina Allergy (Fexofenadine Hcl) 180 Mg Tablet 1 Tab PO DAILY 08/17/14 Reported medication not given at hospital, may resume as directed Comments CT CHEST 1. Mild bilateral atelectasis in both lower lobes. 2. Tiny pleural effusions. 3. Coronary artery disease. Impression . 1. Acute hypoxic respiratory failure secondary to influenza A. 2. Abnormal chest x-ray with asymmetric rounded density in the right hilar area could be mass or adenopathy or pulmonary artery shadow, CT chest with no mass or adenopathy 3. Possible underlying chronic obstructive pulmonary disease. 4. Influenza A. Plan . 1. Continue with present oxygen with gradual weaning. 2. Continue with Tamiflu. 3. P.r.n. bronchodilators. 4. CT chest reviewed, no mass or adenopathy 5. Monitor for any fevers. 6. Respiratory isolation for influenza. 7. Discussed with family 8. increase ambulation/ home in am LAYTON VAZQUEZ MD Nov 26, 2016 11:04
--- NOTE | 2016-11-26 12:05 | PDOC ---
Infectious Disease Note Subjective Subjective Patient feeling ok this am. Still has a cough with intermittent clear sputum production. Doesnt like the food ROS ROS GEN: Denies fevers, chills, sweats HEENT: Denies blurred vision, sore throat CV: Denies chest pain RESP: Denies shortness of air, cough GI: Denies n/v/d NEURO: Denies confusion, dizziness MSK: Denies weakness, joint pain/swelling Vital Sign Vital Signs Vital Signs Date Time Temp Pulse Resp B/P Pulse Ox O2 Delivery O2 Flow Rate FiO2 11/26/16 10:50 97.9 67 18 122/69 99 Nasal Cannula 3.0 97.9 Physical Exam PHYSICAL EXAM GENERAL: NAD, Alert, in chair HEENT: PERRL, OC/OP- clear NECK: Supple, no JVD, no LN LUNGS: Mild wheeze on right HEART: S1S2, no gallop, no murmur ABD: Soft, NT, no organomegaly, no rebound EXT: No edema, no cyanosis B2B [employer]SIDE [employer] REPRESENTATIVE: Alert, oriented x 3, no focal neurologic deficit SKIN: No rash IV: ok Labs Lab Laboratory Tests Test 11/26/16 05:35 White Blood Count 5.0x10^3/uL (4.0-11.0) Red Blood Count 4.45x10^6/uL (4.30-5.70) Hemoglobin 13.7g/dL (13.0-17.5) Hematocrit 38.6% (39.0-53.0) Mean Corpuscular Volume 87fL (79-100) Mean Corpuscular Hemoglobin 31pg (25-35) Mean Corpuscular Hemoglobin Concent 36g/dL (31-37) Red Cell Distribution Width 12.9% (11.5-14.5) Platelet Count 82x10^3/uL (140-400) Neutrophils (%) (Auto) 70% (31-73) Lymphocytes (%) (Auto) 21% (24-48) Monocytes (%) (Auto) 9% (0-9) Eosinophils (%) (Auto) 0% (0-3) Basophils (%) (Auto) 0% (0-3) Neutrophils # (Auto) 3.5x10^3uL (1.8-7.7) Lymphocytes # (Auto) 1.0x10^3/uL (1.0-4.8) Monocytes # (Auto) 0.4x10^3/uL (0.0-1.1) Eosinophils # (Auto) 0.0x10^3/uL (0.0-0.7) Basophils # (Auto) 0.0x10^3/uL (0.0-0.2) Sodium Level 141mmol/L (136-145) Potassium Level 2.8mmol/L (3.5-5.1) Chloride Level 104mmol/L (98-107) Carbon Dioxide Level 31mmol/L (21-32) Anion Gap 6 (6-14) Blood Urea Nitrogen 16mg/dL (8-26) Creatinine 0.8mg/dL (0.7-1.3) Estimated GFR (Cockcroft-Gault) 93.3 Glucose Level 91mg/dL (70-99) Calcium Level 8.4mg/dL (8.5-10.1) Objective Assessment Influenza A 2/6 Pneumonia - CT small effusions Left pleural effusion Thrombocytopenia - better/ Viral process Plan Plan of Care Cont tamiflu Discont Zyvox ? needs rehab D/w family ID to sign off FRANCIS WINSTON MD Nov 26, 2016 12:05
--- NOTE | 2016-11-26 13:37 | PDOC ---
PROGRESS NOTES Chief Complaint Chief Complaint sepsis, viral influenza A COPD possible constipation marked weakness Left pleural effusion Thrombocytopenia History of Present Illness History of Present Illness very weak, lethargic, unable to ambulate needs ongoing symptom management antitussives nebs, pulm toilet PT and OT consider SNU Vitals Vitals Vital Signs Date Time Temp Pulse Resp B/P Pulse Ox O2 Delivery O2 Flow Rate FiO2 11/26/16 13:04 Nasal Cannula 3.0 11/26/16 10:50 97.9 67 18 122/69 99 97.9 Physical Exam General: Alert, Oriented X3, Cooperative, No acute distress Heart: Regular rate, Normal S1, Normal S2, No murmurs, Other (tele: SR) Lungs: Other (decrease bs) Abdomen: Soft, No tenderness Extremities: No clubbing, No cyanosis, No edema, Normal pulses Skin: No breakdown, No significant lesion Labs LABS Laboratory Tests Test 11/26/16 05:35 White Blood Count 5.0x10^3/uL (4.0-11.0) Red Blood Count 4.45x10^6/uL (4.30-5.70) Hemoglobin 13.7g/dL (13.0-17.5) Hematocrit 38.6% (39.0-53.0) Mean Corpuscular Volume 87fL (79-100) Mean Corpuscular Hemoglobin 31pg (25-35) Mean Corpuscular Hemoglobin Concent 36g/dL (31-37) Red Cell Distribution Width 12.9% (11.5-14.5) Platelet Count 82x10^3/uL (140-400) Neutrophils (%) (Auto) 70% (31-73) Lymphocytes (%) (Auto) 21% (24-48) Monocytes (%) (Auto) 9% (0-9) Eosinophils (%) (Auto) 0% (0-3) Basophils (%) (Auto) 0% (0-3) Neutrophils # (Auto) 3.5x10^3uL (1.8-7.7) Lymphocytes # (Auto) 1.0x10^3/uL (1.0-4.8) Monocytes # (Auto) 0.4x10^3/uL (0.0-1.1) Eosinophils # (Auto) 0.0x10^3/uL (0.0-0.7) Basophils # (Auto) 0.0x10^3/uL (0.0-0.2) Sodium Level 141mmol/L (136-145) Potassium Level 2.8mmol/L (3.5-5.1) Chloride Level 104mmol/L (98-107) Carbon Dioxide Level 31mmol/L (21-32) Anion Gap 6 (6-14) Blood Urea Nitrogen 16mg/dL (8-26) Creatinine 0.8mg/dL (0.7-1.3) Estimated GFR (Cockcroft-Gault) 93.3 Glucose Level 91mg/dL (70-99) Calcium Level 8.4mg/dL (8.5-10.1) Review of Systems Review of Systems no n.v.d Assessment and Plan Assessmemt and Plan screen for SNU ID stopped the Zyvox s/p tamiflu Problems Medical Problems: (1) Dehydration Status: Acute (2) Influenza Status: Acute (3) Influenza Status: Acute Problems: Comment Review of Relevant I have reviewed the following items erika (where applicable) has been applied. Labs Laboratory Tests Test 11/26/16 05:35 White Blood Count 5.0x10^3/uL (4.0-11.0) Red Blood Count 4.45x10^6/uL (4.30-5.70) Hemoglobin 13.7g/dL (13.0-17.5) Hematocrit 38.6% (39.0-53.0) Mean Corpuscular Volume 87fL (79-100) Mean Corpuscular Hemoglobin 31pg (25-35) Mean Corpuscular Hemoglobin Concent 36g/dL (31-37) Red Cell Distribution Width 12.9% (11.5-14.5) Platelet Count 82x10^3/uL (140-400) Neutrophils (%) (Auto) 70% (31-73) Lymphocytes (%) (Auto) 21% (24-48) Monocytes (%) (Auto) 9% (0-9) Eosinophils (%) (Auto) 0% (0-3) Basophils (%) (Auto) 0% (0-3) Neutrophils # (Auto) 3.5x10^3uL (1.8-7.7) Lymphocytes # (Auto) 1.0x10^3/uL (1.0-4.8) Monocytes # (Auto) 0.4x10^3/uL (0.0-1.1) Eosinophils # (Auto) 0.0x10^3/uL (0.0-0.7) Basophils # (Auto) 0.0x10^3/uL (0.0-0.2) Sodium Level 141mmol/L (136-145) Potassium Level 2.8mmol/L (3.5-5.1) Chloride Level 104mmol/L (98-107) Carbon Dioxide Level 31mmol/L (21-32) Anion Gap 6 (6-14) Blood Urea Nitrogen 16mg/dL (8-26) Creatinine 0.8mg/dL (0.7-1.3) Estimated GFR (Cockcroft-Gault) 93.3 Glucose Level 91mg/dL (70-99) Calcium Level 8.4mg/dL (8.5-10.1) Laboratory Tests Test 11/26/16 05:35 White Blood Count 5.0x10^3/uL (4.0-11.0) Red Blood Count 4.45x10^6/uL (4.30-5.70) Hemoglobin 13.7g/dL (13.0-17.5) Hematocrit 38.6% (39.0-53.0) Mean Corpuscular Volume 87fL (79-100) Mean Corpuscular Hemoglobin 31pg (25-35) Mean Corpuscular Hemoglobin Concent 36g/dL (31-37) Red Cell Distribution Width 12.9% (11.5-14.5) Platelet Count 82x10^3/uL (140-400) Neutrophils (%) (Auto) 70% (31-73) Lymphocytes (%) (Auto) 21% (24-48) Monocytes (%) (Auto) 9% (0-9) Eosinophils (%) (Auto) 0% (0-3) Basophils (%) (Auto) 0% (0-3) Neutrophils # (Auto) 3.5x10^3uL (1.8-7.7) Lymphocytes # (Auto) 1.0x10^3/uL (1.0-4.8) Monocytes # (Auto) 0.4x10^3/uL (0.0-1.1) Eosinophils # (Auto) 0.0x10^3/uL (0.0-0.7) Basophils # (Auto) 0.0x10^3/uL (0.0-0.2) Sodium Level 141mmol/L (136-145) Potassium Level 2.8mmol/L (3.5-5.1) Chloride Level 104mmol/L (98-107) Carbon Dioxide Level 31mmol/L (21-32) Anion Gap 6 (6-14) Blood Urea Nitrogen 16mg/dL (8-26) Creatinine 0.8mg/dL (0.7-1.3) Estimated GFR (Cockcroft-Gault) 93.3 Glucose Level 91mg/dL (70-99) Calcium Level 8.4mg/dL (8.5-10.1) Microbiology 11/23/16 Urine Culture - Final, Complete 11/23/16 Urine Culture Result 1 (MAGUI) - Final, Complete Medications Current Medications Oseltamivir Phosphate (Tamiflu) 75 mg BID PO Last administered on 11/26/16 08: 38; Start 11/23/16 at 21:00; Stop 11/28/16 at 20:59 Ondansetron HCl (Zofran) 4 mg PRN Q8HRS PRN IV NAUSEA/VOMITING; Start 11/23/16 at 19:15; Stop 11/24/16 at 19:14; Status DC Morphine Sulfate 2 mg 2 mg PRN Q2HR PRN IV PAIN; Start 11/23/16 at 19:15; Stop 11/24/16 at 19:14; Status DC Sodium Chloride (Iv Sodium Chloride 0.9% 1000ml Bag) 1,000 ml @ 125 mls/hr Q8H IV Last administered on 11/23/16 20:13; Start 11/23/16 at 19:10; Stop 11/24/16 at 04:19; Status DC Acetaminophen (Tylenol) 650 mg PRN Q6HRS PRN PO MILD PAIN / TEMP Last administered on 11/24/16 23:12; Start 11/23/16 at 21:30 Carvedilol (Coreg) 3.125 mg BIDWMEALS PO Last administered on 11/26/16 07:16; Start 11/24/16 at 08:00 Clopidogrel Bisulfate (Plavix) 75 mg DAILY PO Last administered on 11/26/16 08: 38; Start 11/24/16 at 09:00 Levothyroxine Sodium (Synthroid) 112 mcg DAILY07 PO Last administered on 05:46; Start 11/24/16 at 07:00 Lisinopril (Prinivil) 20 mg DAILY PO Last administered on 11/26/16 08:38; Start 11/24/16 at 09:00 Ranolazine (Ranexa) 500 mg BID PO Last administered on 11/26/16 08:37; Start at 23:00 Simvastatin (Zocor) 20 mg HS PO Last administered on 11/25/16 20:38; Start 11/23 at 23:00 Ascorbic Acid (Vitamin C) 500 mg DAILY PO Last administered on 11/26/16 08:37; Start 11/24/16 at 09:00 Calcium/Vitamin D (Oscal D 500mg/ 200uts) 1 tab DAILY PO Last administered on 08:38; Start 11/24/16 at 09:00 Cetirizine HCl (Zyrtec) 10 mg DAILY PO Last administered on 11/26/16 08:38; Start 11/24/16 at 09:00 Non-Formulary Medication 1,000 mg DAILY PO supplement; Start 11/24/16 at 09:00; Status UNV Pantoprazole Sodium (Protonix) 40 mg DAILYAC PO Last administered on 11/26/16 05:46; Start 11/24/16 at 07:30 Multivitamins/ Calcium (Thera M Plus) 1 tab DAILY PO Last administered on 08:38; Start 11/24/16 at 09:00 Vitamin E 400 unit DAILY PO Last administered on 11/26/16 08:37; Start 11/24/16 at 09:00 Furosemide (Lasix) 60 mg 1X ONCE IVP ; Start 11/24/16 at 04:30; Stop 11/24/16 at 04:30; Status DC Furosemide 60 mg 60 mg 1X ONCE IVP Last administered on 11/24/16 04:36; Start 11/24/16 at 04:30; Stop 11/24/16 at 04:31; Status DC Sodium Chloride (Iv Sodium Chloride 0.9% 1000ml Bag) 1,000 ml @ 20 mls/hr Q24H IV Last administered on 11/24/16 04:38; Start 11/24/16 at 04:30; Stop 11/24/16 at 04:31; Status DC Sodium Bicarbonate 50 meq 1X ONCE IV Last administered on 11/24/16 04:47; Start 11/24/16 at 05:00; Stop 11/24/16 at 05:01; Status DC Iohexol (Omnipaque 300 Mg/ml) 75 ml 1X ONCE IV ; Start 11/24/16 at 09:00; Stop 11/24/16 at 09:14; Status DC Guaifenesin (Robitussin Dm) 10 ml PRN Q6HRS PRN PO COUGH Last administered on 20:38; Start 11/24/16 at 10:15 Polyethylene Glycol (miraLAX PACKET) 17 gm 1X ONCE PO Last administered on 11/24 10:34; Start 11/24/16 at 10:30; Stop 11/24/16 at 10:31; Status DC Polyethylene Glycol (miraLAX PACKET) 17 gm PRN DAILY PRN PO CONSTIPATION, 1ST CHOICE; Start 11/24/16 at 10:15 Docusate Sodium 100 mg 100 mg PRN DAILY PRN PO CONSTIPATION, 2ND CHOICE; Start 11/24/16 at 10:15 Linezolid (Zyvox Premix) 300 ml @ 300 mls/hr Q12HR IV Last administered on 11/26 08:45; Start 11/24/16 at 13:00; Stop 11/26/16 at 12:05; Status DC Albuterol/ Ipratropium (Duoneb) 3 ml RTQID NEB Last administered on 11/26/16 13 :02; Start 11/24/16 at 20:00 Albuterol Sulfate 2.5 mg 2.5 mg PRN Q4HRS PRN NEB WHEEZES; Start 11/24/16 at 17: 15 Sodium Chloride (Iv Sodium Chloride 0.9% 1000ml Bag) 1,000 ml @ 100 mls/hr Q10H IV Last administered on 11/26/16 07:16; Start 11/25/16 at 10:00 Potassium Chloride (Klor-Con) 40 meq 1X ONCE PO Last administered on 11/26/16 07:15; Start 11/26/16 at 07:30; Stop 11/26/16 at 07:31; Status DC Potassium Chloride (Klor-Con) 40 meq 1X ONCE PO Last administered on 11/26/16 12:07; Start 11/26/16 at 11:30; Stop 11/26/16 at 11:31; Status DC Active Scripts Active Nitrostat (Nitroglycerin) 0.4 Mg Tab.subl 0.4 Mg SL PRN Q5MIN PRN Ranexa (Ranolazine) 500 Mg Tab.er.12h 500 Mg PO BID Reported Multi-Day Vitamins (Multivitamin) 1 Each Tablet 1 Tab PO DAILY Lansoprazole 30 Mg Capsule.dr 1 Cap PO DAILY Clopidogrel (Clopidogrel Bisulfate) 75 Mg Tablet 1 Tab PO DAILY Prinivil (Lisinopril) 20 Mg Tablet 1 Tab PO DAILY [herlax] not given as hospital, may resume as directed Calcium 500 + D Tablet (Calcium Carbonate/Vitamin D3) 1 Each Tablet 1 Each PO DAILY medication was not given at hospital, may resume as directed Vitamin E (Vitamin E Mixed) 400 Unit Tablet 400 Unit PO DAILY medication not given at hospital, may resume as directed. Vitamin C (Ascorbic Acid) 500 Mg Capsule.er 500 Mg PO DAILY medication was not given at hospital, may resume as directed Glucosamine (Glucosamine Sulfate 2KCL) 1,000 Mg Tablet 1,000 Mg PO DAILY medication not given at hospital, may resume as directed Levothyroxine Sodium 112 Mcg Tablet 112 Mcg PO DAILYAC medication not given at hospital, may resume as directed Carvedilol 3.125 Mg Tablet 1 Tab PO BID LAST DOSE GIVEN: DATE:11/13/15 TIME:9:00 a.m. NEXT DOSE DUE: DATE:11/13/15 TIME:6:00 p.m. Simvastatin 20 Mg Tablet 20 Mg PO HS LAST DOSE GIVEN: DATE:11/12/15 TIME:9:00 p.m. NEXT DOSE DUE: DATE:11/13/15 TIME:9:00 p.m. Fina Allergy (Fexofenadine Hcl) 180 Mg Tablet 1 Tab PO DAILY medication not given at hospital, may resume as directed Vitals/I & O Vital Sign - Last 24 Hours 2/811/25/16 11/25/16 11/25/16 15:00 15:06 18:07 19:00 Temp 97.7 97.8 97.7 97.8 Pulse 72 111 83 Resp 19 18 B/P 117/67 122/82 111/72 Pulse Ox 97 97 O2 Delivery Nasal Cannula Nasal Cannula Nasal Cannula O2 Flow Rate 5.0 5.0 5.0 11/25/16 11/25/16 11/25/16 11/26/16 19:05 20:39 23:00 03:00 Temp 97.9 97.5 97.9 97.5 Pulse 83 79 63 Resp 18 18 B/P 111/72 119/76 122/78 Pulse Ox 97 97 O2 Delivery Nasal Cannula Nasal Cannula Nasal Cannula O2 Flow Rate 5.0 5.0 5.0 11/26/16 11/26/16 11/26/16 11/26/16 07:00 07:16 07:50 08:00 Temp 97.9 97.9 Pulse 73 64 Resp 18 B/P 133/81 133/81 Pulse Ox 97 100 O2 Delivery Nasal Cannula Nasal Cannula Nasal Cannula O2 Flow Rate 5.0 3.0 5.0 11/26/16 11/26/16 11/26/16 11/26/16 08:37 08:38 10:50 13:04 Temp 97.9 97.9 Pulse 64 64 67 Resp 18 B/P 133/81 133/81 122/69 Pulse Ox 99 O2 Delivery Nasal Cannula Nasal Cannula O2 Flow Rate 3.0 3.0 Intake and Output 11/25/16 11/25/16 11/26/16 15:00 23:00 07:00 Intake Total 120 ml 1420 ml 120 ml Output Total 1350 ml 350 ml Balance 120 ml 70 ml -230 ml ALCON RUIZ MD Nov 26, 2016 13:37
[2016-11-26 15:00] VITALS: BP 130/74
[2016-11-26 19:00] VITALS: BP 156/79
[2016-11-26] MEDS: ACETAMINOPHEN 325 MG TABLET. PO PRN (20:09)
[2016-11-26] MEDS: SIMVASTATIN 20 MG TABLET PO SCH (20:09)
[2016-11-26 23:00] VITALS: BP 186/83
[2016-11-27] MEDS: IV NORMAL SALINE 1000ML BAG 1,000 ML IV SCH ×3 (02:00→22:00)
[2016-11-27 03:00] VITALS: BP 181/93
[2016-11-27] MEDS: ACETAMINOPHEN 325 MG TABLET. PO PRN (03:05)
[2016-11-27] MEDS: LEVOTHYROXINE 112 MCG TABLET PO SCH (05:01)
[2016-11-27] MEDS: IPRATRPIUM/ALBUTEROL 0.5/2.5MG 3 ML NEBU. NEB SCH ×4 (07:13→19:54)
[2016-11-27 07:15] VITALS: BP 167/91
[2016-11-27] MEDS: PANTOPRAZOLE 40 MG TABLET. PO SCH (07:59)
[2016-11-27] MEDS: CALCIUM CARB/VIT D3 500/200 TABLET PO SCH (07:59)
[2016-11-27] MEDS: CARVEDILOL 3.125 MG TABLET PO SCH ×2 (07:59→16:25)
[2016-11-27] MEDS: VITAMIN E 200 UNIT CAPSULE. PO SCH (07:59)
[2016-11-27] MEDS: LISINOPRIL 20 MG TABLET PO SCH (08:00)
[2016-11-27] MEDS: MULTIVITAMIN with MINERAL TABLET. PO SCH (08:00)
[2016-11-27] MEDS: ASCORBIC ACID 500 MG TABLET PO SCH (08:00)
[2016-11-27] MEDS: CETIRIZINE HCL 10 MG TABLET PO SCH (08:00)
[2016-11-27] MEDS: CLOPIDOGREL BISULFATE 75 MG TABLET PO SCH (08:00)
[2016-11-27] MEDS: OSELTAMIVIR 75 MG CAPSULE PO SCH ×2 (08:01→21:11)
[2016-11-27] MEDS: RANOLAZINE 500 MG TAB.ER.12H PO SCH ×2 (08:01→21:11)
[2016-11-27] MEDS ORDERED: POTASSIUM CHLORIDE 20 MEQ TABLET.ER. PO ONE ×2 (09:30→13:00)
[2016-11-27] MEDS ORDERED: IPRA3AMP NEB (09:51)
[2016-11-27] MEDS ORDERED: GUAI5SYR PO (09:51)
[2016-11-27 10:25] LABS: CALCIUM 8.5 mg/dL (8.5-10.1); CREATININE 0.9 mg/dL (0.7-1.3); GFR 81.4; POTASSIUM 3.3 mmol/L (3.5-5.1)
[2016-11-27 11:13] VITALS: BP 135/66
[2016-11-27 15:15] VITALS: BP 165/85
--- NOTE | 2016-11-27 15:31 | PDOC ---
PULMONARY PROGRESS NOTES Subjective feels better this am, says he woke up confused last night Vitals Vital Signs Date Time Temp Pulse Resp B/P Pulse Ox O2 Delivery O2 Flow Rate FiO2 11/27/16 13:18 96 Room Air 11/27/16 11:13 98.4 61 20 135/66 98.4 11/26/16 13:04 3.0 General: Alert, No acute distress Lungs: Other (decrease bs) Cardiovascular: S1 Abdomen: Soft Neuro Exam: Alert Extremities: No Edema Skin: Warm Labs Laboratory Tests Test 11/26/16 05:35 11/27/16 09:50 White Blood Count 5.0x10^3/uL (4.0-11.0) Red Blood Count 4.45x10^6/uL (4.30-5.70) Hemoglobin 13.7g/dL (13.0-17.5) Hematocrit 38.6% (39.0-53.0) Mean Corpuscular Volume 87fL (79-100) Mean Corpuscular Hemoglobin 31pg (25-35) Mean Corpuscular Hemoglobin Concent 36g/dL (31-37) Red Cell Distribution Width 12.9% (11.5-14.5) Platelet Count 82x10^3/uL (140-400) Neutrophils (%) (Auto) 70% (31-73) Lymphocytes (%) (Auto) 21% (24-48) Monocytes (%) (Auto) 9% (0-9) Eosinophils (%) (Auto) 0% (0-3) Basophils (%) (Auto) 0% (0-3) Neutrophils # (Auto) 3.5x10^3uL (1.8-7.7) Lymphocytes # (Auto) 1.0x10^3/uL (1.0-4.8) Monocytes # (Auto) 0.4x10^3/uL (0.0-1.1) Eosinophils # (Auto) 0.0x10^3/uL (0.0-0.7) Basophils # (Auto) 0.0x10^3/uL (0.0-0.2) Sodium Level 141mmol/L (136-145) 140mmol/L (136-145) Potassium Level 2.8mmol/L (3.5-5.1) 3.3mmol/L (3.5-5.1) Chloride Level 104mmol/L (98-107) 106mmol/L (98-107) Carbon Dioxide Level 31mmol/L (21-32) 26mmol/L (21-32) Anion Gap 6 (6-14) 8 (6-14) Blood Urea Nitrogen 16mg/dL (8-26) 14mg/dL (8-26) Creatinine 0.8mg/dL (0.7-1.3) 0.9mg/dL (0.7-1.3) Estimated GFR (Cockcroft-Gault) 93.3 81.4 Glucose Level 91mg/dL (70-99) 126mg/dL (70-99) Calcium Level 8.4mg/dL (8.5-10.1) 8.5mg/dL (8.5-10.1) Magnesium Level 2.0mg/dL (1.8-2.4) Laboratory Tests Test 11/27/16 09:50 Sodium Level 140mmol/L (136-145) Potassium Level 3.3mmol/L (3.5-5.1) Chloride Level 106mmol/L (98-107) Carbon Dioxide Level 26mmol/L (21-32) Anion Gap 8 (6-14) Blood Urea Nitrogen 14mg/dL (8-26) Creatinine 0.9mg/dL (0.7-1.3) Estimated GFR (Cockcroft-Gault) 81.4 Glucose Level 126mg/dL (70-99) Calcium Level 8.5mg/dL (8.5-10.1) Magnesium Level 2.0mg/dL (1.8-2.4) Medications Active Scripts Medications Dose Route/Sig Days Date Category Dose Instructions Multi-Day Vitamins (Multivitamin) 1 Each Tablet 1 Tab PO DAILY 11/23/16 Reported Lansoprazole 30 Mg Capsule. 1 Cap PO DAILY 11/23/16 Reported Clopidogrel (Clopidogrel Bisulfate) 75 Mg Tablet 1 Tab PO DAILY 11/23/16 Reported Prinivil (Lisinopril) 20 Mg Tablet 1 Tab PO DAILY 11/23/16 Reported [herlax] 11/12/15 Reported not given as hospital, may resume as directed Calcium 500 + D Tablet (Calcium Carbonate/Vitamin D3) 1 Each Tablet 1 Each PO DAILY 11/12/15 Reported medication was not given at hospital, may resume as directed Vitamin E (Vitamin E Mixed) 400 Unit Tablet 400 Unit PO DAILY 10/25/15 Reported medication not given at hospital, may resume as directed. Vitamin C (Ascorbic Acid) 500 Mg Capsule.er 500 Mg PO DAILY 10/25/15 Reported medication was not given at hospital, may resume as directed Glucosamine (Glucosamine Sulfate 2KCL) 1,000 Mg Tablet 1,000 Mg PO DAILY 10/25/15 Reported medication not given at hospital, may resume as directed Levothyroxine Sodium 112 Mcg Tablet 112 Mcg PO DAILYAC 10/25/15 Reported medication not given at hospital, may resume as directed Nitrostat (Nitroglycerin) 0.4 Mg Tab.subl 0.4 Mg SL PRN Q5MIN PRN 08/17/14 Rx Ranexa (Ranolazine) 500 Mg Tab.er.12h 500 Mg PO BID 08/17/14 Rx Carvedilol 3.125 Mg Tablet 1 Tab PO BID 08/17/14 Reported LAST DOSE GIVEN: DATE:11/13/15 TIME:9:00 a.m. NEXT DOSE DUE: DATE:11/13/15 TIME:6:00 p.m. Simvastatin 20 Mg Tablet 20 Mg PO HS 08/17/14 Reported LAST DOSE GIVEN: DATE:11/12/15 TIME:9:00 p.m. NEXT DOSE DUE: DATE:11/13/15 TIME:9:00 p.m. Fina Allergy (Fexofenadine Hcl) 180 Mg Tablet 1 Tab PO DAILY 08/17/14 Reported medication not given at hospital, may resume as directed Comments CT CHEST 1. Mild bilateral atelectasis in both lower lobes. 2. Tiny pleural effusions. 3. Coronary artery disease. Impression . 1. Acute hypoxic respiratory failure secondary to influenza A. 2. Abnormal chest x-ray with asymmetric rounded density in the right hilar area CT chest with no mass or adenopathy 3. Possible underlying chronic obstructive pulmonary disease. 4. Influenza A. Plan . 1. Continue with present oxygen with gradual weaning. 2. Tamiflu. 3. P.r.n. bronchodilators. 4. CT chest reviewed, no mass or adenopathy 5. Monitor for any fevers. 6. Respiratory isolation for influenza. 8. d/c plans per PCP LAYTON VAZQUEZ MD Nov 27, 2016 15:31
[2016-11-27 19:00] VITALS: BP 160/92
[2016-11-27] MEDS: SIMVASTATIN 20 MG TABLET PO SCH (21:11)
[2016-11-27] MEDS: GUAIFENESIN DM 200MG/20MG 10 ML SYRUP. PO PRN (22:17)
[2016-11-27 23:00] VITALS: BP 167/90
[2016-11-28 03:00] VITALS: BP 130/81
[2016-11-28] MEDS: LEVOTHYROXINE 112 MCG TABLET PO SCH (06:40)
[2016-11-28 07:00] VITALS: BP 144/84
[2016-11-28] MEDS: IPRATRPIUM/ALBUTEROL 0.5/2.5MG 3 ML NEBU. NEB SCH (07:06)
[2016-11-28] MEDS: IV NORMAL SALINE 1000ML BAG 1,000 ML IV SCH (08:00)
--- NOTE | 2016-11-28 08:38 | PDOC ---
PULMONARY PROGRESS NOTES Subjective feels better this am,sob better. no cough, no pain, is weak Vitals Vital Signs Date Time Temp Pulse Resp B/P Pulse Ox O2 Delivery O2 Flow Rate FiO2 11/28/16 07:08 93 Room Air 11/28/16 03:00 96.6 67 18 130/81 96.6 Comments ros as mentioned as above other sys otherwise neg General: Alert, No acute distress Lungs: Other (decrease bs) Cardiovascular: S1, S2 Abdomen: Soft, Non-tender Neuro Exam: Alert, Oriented Extremities: No Edema Skin: Warm Labs Laboratory Tests Test 11/27/16 09:50 Sodium Level 140mmol/L (136-145) Potassium Level 3.3mmol/L (3.5-5.1) Chloride Level 106mmol/L (98-107) Carbon Dioxide Level 26mmol/L (21-32) Anion Gap 8 (6-14) Blood Urea Nitrogen 14mg/dL (8-26) Creatinine 0.9mg/dL (0.7-1.3) Estimated GFR (Cockcroft-Gault) 81.4 Glucose Level 126mg/dL (70-99) Calcium Level 8.5mg/dL (8.5-10.1) Magnesium Level 2.0mg/dL (1.8-2.4) Laboratory Tests Test 11/27/16 09:50 Sodium Level 140mmol/L (136-145) Potassium Level 3.3mmol/L (3.5-5.1) Chloride Level 106mmol/L (98-107) Carbon Dioxide Level 26mmol/L (21-32) Anion Gap 8 (6-14) Blood Urea Nitrogen 14mg/dL (8-26) Creatinine 0.9mg/dL (0.7-1.3) Estimated GFR (Cockcroft-Gault) 81.4 Glucose Level 126mg/dL (70-99) Calcium Level 8.5mg/dL (8.5-10.1) Magnesium Level 2.0mg/dL (1.8-2.4) Medications Active Scripts Medications Dose Route/Sig Days Date Category Dose Instructions Multi-Day Vitamins (Multivitamin) 1 Each Tablet 1 Tab PO DAILY 11/23/16 Reported Lansoprazole 30 Mg Capsule.dr 1 Cap PO DAILY 11/23/16 Reported Clopidogrel (Clopidogrel Bisulfate) 75 Mg Tablet 1 Tab PO DAILY 11/23/16 Reported Prinivil (Lisinopril) 20 Mg Tablet 1 Tab PO DAILY 11/23/16 Reported [herlax] 11/12/15 Reported not given as hospital, may resume as directed Calcium 500 + D Tablet (Calcium Carbonate/Vitamin D3) 1 Each Tablet 1 Each PO DAILY 11/12/15 Reported medication was not given at hospital, may resume as directed Vitamin E (Vitamin E Mixed) 400 Unit Tablet 400 Unit PO DAILY 10/25/15 Reported medication not given at hospital, may resume as directed. Vitamin C (Ascorbic Acid) 500 Mg Capsule.er 500 Mg PO DAILY 10/25/15 Reported medication was not given at hospital, may resume as directed Glucosamine (Glucosamine Sulfate 2KCL) 1,000 Mg Tablet 1,000 Mg PO DAILY 10/25/15 Reported medication not given at hospital, may resume as directed Levothyroxine Sodium 112 Mcg Tablet 112 Mcg PO DAILYAC 10/25/15 Reported medication not given at hospital, may resume as directed Nitrostat (Nitroglycerin) 0.4 Mg Tab.subl 0.4 Mg SL PRN Q5MIN PRN 08/17/14 Rx Ranexa (Ranolazine) 500 Mg Tab.er.12h 500 Mg PO BID 08/17/14 Rx Carvedilol 3.125 Mg Tablet 1 Tab PO BID 08/17/14 Reported LAST DOSE GIVEN: DATE:11/13/15 TIME:9:00 a.m. NEXT DOSE DUE: DATE:11/13/15 TIME:6:00 p.m. Simvastatin 20 Mg Tablet 20 Mg PO HS 08/17/14 Reported LAST DOSE GIVEN: DATE:11/12/15 TIME:9:00 p.m. NEXT DOSE DUE: DATE:11/13/15 TIME:9:00 p.m. Fina Allergy (Fexofenadine Hcl) 180 Mg Tablet 1 Tab PO DAILY 08/17/14 Reported medication not given at hospital, may resume as directed Comments CT CHEST 1. Mild bilateral atelectasis in both lower lobes. 2. Tiny pleural effusions. 3. Coronary artery disease. Impression . 1. Acute hypoxic respiratory failure secondary to influenza A. 2. Abnormal chest x-ray with asymmetric rounded density in the right hilar area CT chest with no mass or adenopathy 3. Possible underlying chronic obstructive pulmonary disease. 4. Influenza A. Plan . 1. Continue with present oxygen with gradual weaning. 2. Tamiflu. 3. P.r.n. bronchodilators. 4. CT chest reviewed, no mass or adenopathy 5. Monitor for any fevers. 6. Respiratory isolation for influenza. 8. ok to d/c form pulm standpoint CLAUDETTE GONSALES MD Nov 28, 2016 08:38
--- NOTE | 2016-11-28 09:35 | PDOC ---
PROGRESS NOTES Chief Complaint Chief Complaint LATE ENTRY, seen 11/27, tried to DC to SNU not accepted, will send home health 11/28 sepsis, viral influenza A COPD possible constipation marked weakness Left pleural effusion Thrombocytopenia History of Present Illness History of Present Illness very weak, lethargic, unable to ambulate needs ongoing symptom management antitussives nebs, pulm toilet PT and OT consider SNU Vitals Vitals Vital Signs Date Time Temp Pulse Resp B/P Pulse Ox O2 Delivery O2 Flow Rate FiO2 11/28/16 07:08 93 Room Air 11/28/16 07:00 97.5 65 20 144/84 97.5 Physical Exam General: Alert, Oriented X3, Cooperative, No acute distress Heart: Regular rate, Normal S1, Normal S2, No murmurs, Other (tele: SR) Lungs: Other (decrease bs) Abdomen: Soft, No tenderness Extremities: No clubbing, No cyanosis, No edema, Normal pulses Skin: No breakdown, No significant lesion Labs LABS Laboratory Tests Test 11/27/16 09:50 Sodium Level 140mmol/L (136-145) Potassium Level 3.3mmol/L (3.5-5.1) Chloride Level 106mmol/L (98-107) Carbon Dioxide Level 26mmol/L (21-32) Anion Gap 8 (6-14) Blood Urea Nitrogen 14mg/dL (8-26) Creatinine 0.9mg/dL (0.7-1.3) Estimated GFR (Cockcroft-Gault) 81.4 Glucose Level 126mg/dL (70-99) Calcium Level 8.5mg/dL (8.5-10.1) Magnesium Level 2.0mg/dL (1.8-2.4) Assessment and Plan Assessmemt and Plan Problems Medical Problems: (1) Dehydration Status: Acute (2) Influenza Status: Acute (3) Influenza Status: Acute Problems: Comment Review of Relevant I have reviewed the following items erika (where applicable) has been applied. Labs Laboratory Tests Test 11/27/16 09:50 Sodium Level 140mmol/L (136-145) Potassium Level 3.3mmol/L (3.5-5.1) Chloride Level 106mmol/L (98-107) Carbon Dioxide Level 26mmol/L (21-32) Anion Gap 8 (6-14) Blood Urea Nitrogen 14mg/dL (8-26) Creatinine 0.9mg/dL (0.7-1.3) Estimated GFR (Cockcroft-Gault) 81.4 Glucose Level 126mg/dL (70-99) Calcium Level 8.5mg/dL (8.5-10.1) Magnesium Level 2.0mg/dL (1.8-2.4) Laboratory Tests Test 11/27/16 09:50 Sodium Level 140mmol/L (136-145) Potassium Level 3.3mmol/L (3.5-5.1) Chloride Level 106mmol/L (98-107) Carbon Dioxide Level 26mmol/L (21-32) Anion Gap 8 (6-14) Blood Urea Nitrogen 14mg/dL (8-26) Creatinine 0.9mg/dL (0.7-1.3) Estimated GFR (Cockcroft-Gault) 81.4 Glucose Level 126mg/dL (70-99) Calcium Level 8.5mg/dL (8.5-10.1) Magnesium Level 2.0mg/dL (1.8-2.4) Microbiology 11/23/16 Urine Culture - Final, Complete 11/23/16 Urine Culture Result 1 (MAGUI) - Final, Complete Medications Current Medications Oseltamivir Phosphate (Tamiflu) 75 mg BID PO Last administered on 11/27/16 21: 11; Start 11/23/16 at 21:00; Stop 11/28/16 at 20:59 Ondansetron HCl (Zofran) 4 mg PRN Q8HRS PRN IV NAUSEA/VOMITING; Start 11/23/16 at 19:15; Stop 11/24/16 at 19:14; Status DC Morphine Sulfate 2 mg 2 mg PRN Q2HR PRN IV PAIN; Start 11/23/16 at 19:15; Stop 11/24/16 at 19:14; Status DC Sodium Chloride (Iv Sodium Chloride 0.9% 1000ml Bag) 1,000 ml @ 125 mls/hr Q8H IV Last administered on 11/23/16 20:13; Start 11/23/16 at 19:10; Stop 11/24/16 at 04:19; Status DC Acetaminophen (Tylenol) 650 mg PRN Q6HRS PRN PO MILD PAIN / TEMP Last administered on 11/27/16 03:05; Start 11/23/16 at 21:30 Carvedilol (Coreg) 3.125 mg BIDWMEALS PO Last administered on 11/27/16 16:25; Start 11/24/16 at 08:00 Clopidogrel Bisulfate (Plavix) 75 mg DAILY PO Last administered on 11/27/16 08 :00; Start 11/24/16 at 09:00 Levothyroxine Sodium (Synthroid) 112 mcg DAILY07 PO Last administered on 06:40; Start 11/24/16 at 07:00 Lisinopril (Prinivil) 20 mg DAILY PO Last administered on 11/27/16 08:00; Start 11/24/16 at 09:00 Ranolazine (Ranexa) 500 mg BID PO Last administered on 11/27/16 21:11; Start 11/23/16 at 23:00 Simvastatin (Zocor) 20 mg HS PO Last administered on 11/27/16 21:11; Start 11/23/16 at 23:00 Ascorbic Acid (Vitamin C) 500 mg DAILY PO Last administered on 11/27/16 08:00 ; Start 11/24/16 at 09:00 Calcium/Vitamin D (Oscal D 500mg/ 200uts) 1 tab DAILY PO Last administered on 07:59; Start 11/24/16 at 09:00 Cetirizine HCl (Zyrtec) 10 mg DAILY PO Last administered on 11/27/16 08:00; Start 11/24/16 at 09:00 Non-Formulary Medication 1,000 mg DAILY PO supplement; Start 11/24/16 at 09:00; Status UNV Pantoprazole Sodium (Protonix) 40 mg DAILYAC PO Last administered on 11/27/16 07:59; Start 11/24/16 at 07:30 Multivitamins/ Calcium (Thera M Plus) 1 tab DAILY PO Last administered on 08:00; Start 11/24/16 at 09:00 Vitamin E 400 unit DAILY PO Last administered on 11/27/16 07:59; Start at 09:00 Furosemide (Lasix) 60 mg 1X ONCE IVP ; Start 11/24/16 at 04:30; Stop 11/24/16 at 04:30; Status DC Furosemide 60 mg 60 mg 1X ONCE IVP Last administered on 11/24/16 04:36; Start 11/24/16 at 04:30; Stop 11/24/16 at 04:31; Status DC Sodium Chloride (Iv Sodium Chloride 0.9% 1000ml Bag) 1,000 ml @ 20 mls/hr Q24H IV Last administered on 11/24/16 04:38; Start 11/24/16 at 04:30; Stop 11/24/16 at 04:31; Status DC Sodium Bicarbonate 50 meq 1X ONCE IV Last administered on 11/24/16 04:47; Start 11/24/16 at 05:00; Stop 11/24/16 at 05:01; Status DC Iohexol (Omnipaque 300 Mg/ml) 75 ml 1X ONCE IV ; Start 11/24/16 at 09:00; Stop 11/24/16 at 09:14; Status DC Guaifenesin (Robitussin Dm) 10 ml PRN Q6HRS PRN PO COUGH Last administered on 22:17; Start 11/24/16 at 10:15 Polyethylene Glycol (miraLAX PACKET) 17 gm 1X ONCE PO Last administered on 11/24 10:34; Start 11/24/16 at 10:30; Stop 11/24/16 at 10:31; Status DC Polyethylene Glycol (miraLAX PACKET) 17 gm PRN DAILY PRN PO CONSTIPATION, 1ST CHOICE Last administered on 11/27/16 16:29; Start 11/24/16 at 10:15 Docusate Sodium 100 mg 100 mg PRN DAILY PRN PO CONSTIPATION, 2ND CHOICE; Start 11/24/16 at 10:15 Linezolid (Zyvox Premix) 300 ml @ 300 mls/hr Q12HR IV Last administered on 11/26 08:45; Start 11/24/16 at 13:00; Stop 11/26/16 at 12:05; Status DC Albuterol/ Ipratropium (Duoneb) 3 ml RTQID NEB Last administered on 11/28/16 07:06; Start 11/24/16 at 20:00 Albuterol Sulfate 2.5 mg 2.5 mg PRN Q4HRS PRN NEB WHEEZES; Start 11/24/16 at 17: 15 Sodium Chloride (Iv Sodium Chloride 0.9% 1000ml Bag) 1,000 ml @ 100 mls/hr Q10H IV Last administered on 11/27/16 02:00; Start 11/25/16 at 10:00 Potassium Chloride (Klor-Con) 40 meq 1X ONCE PO Last administered on 11/26/16 07:15; Start 11/26/16 at 07:30; Stop 11/26/16 at 07:31; Status DC Potassium Chloride (Klor-Con) 40 meq 1X ONCE PO Last administered on 11/26/16 12:07; Start 11/26/16 at 11:30; Stop 11/26/16 at 11:31; Status DC Potassium Chloride (Klor-Con) 40 meq 1X ONCE PO Last administered on 09:24; Start 11/27/16 at 09:30; Stop 11/27/16 at 09:31; Status DC Potassium Chloride (Klor-Con) 20 meq 1X ONCE PO Last administered on 14:09; Start 11/27/16 at 13:00; Stop 11/27/16 at 13:01; Status DC Active Scripts Active Nitrostat (Nitroglycerin) 0.4 Mg Tab.subl 0.4 Mg SL PRN Q5MIN PRN Ranexa (Ranolazine) 500 Mg Tab.er.12h 500 Mg PO BID Reported Multi-Day Vitamins (Multivitamin) 1 Each Tablet 1 Tab PO DAILY Lansoprazole 30 Mg Capsule.dr 1 Cap PO DAILY Clopidogrel (Clopidogrel Bisulfate) 75 Mg Tablet 1 Tab PO DAILY Prinivil (Lisinopril) 20 Mg Tablet 1 Tab PO DAILY [herlax] not given as hospital, may resume as directed Calcium 500 + D Tablet (Calcium Carbonate/Vitamin D3) 1 Each Tablet 1 Each PO DAILY medication was not given at hospital, may resume as directed Vitamin E (Vitamin E Mixed) 400 Unit Tablet 400 Unit PO DAILY medication not given at hospital, may resume as directed. Vitamin C (Ascorbic Acid) 500 Mg Capsule.er 500 Mg PO DAILY medication was not given at hospital, may resume as directed Glucosamine (Glucosamine Sulfate 2KCL) 1,000 Mg Tablet 1,000 Mg PO DAILY medication not given at hospital, may resume as directed Levothyroxine Sodium 112 Mcg Tablet 112 Mcg PO DAILYAC medication not given at hospital, may resume as directed Carvedilol 3.125 Mg Tablet 1 Tab PO BID LAST DOSE GIVEN: DATE:11/13/15 TIME:9:00 a.m. NEXT DOSE DUE: DATE:11/13/15 TIME:6:00 p.m. Simvastatin 20 Mg Tablet 20 Mg PO HS LAST DOSE GIVEN: DATE:11/12/15 TIME:9:00 p.m. NEXT DOSE DUE: DATE:11/13/15 TIME:9:00 p.m. Fina Allergy (Fexofenadine Hcl) 180 Mg Tablet 1 Tab PO DAILY medication not given at hospital, may resume as directed Vitals/I & O Vital Sign - Last 24 Hours 11/27/16 11/27/16 11/27/16 11/27/16 11:13 13:18 15:15 16:25 Temp 98.4 97.9 98.4 97.9 Pulse 61 67 65 Resp 20 18 B/P 135/66 165/85 163/89 Pulse Ox 97 96 96 O2 Delivery Room Air Room Air Room Air 11/27/16 11/27/16 11/27/16 11/27/16 16:57 19:00 19:57 20:00 Temp 98.5 98.5 Pulse 83 Resp 18 B/P 160/92 Pulse Ox 95 O2 Delivery Room Air Room Air Room Air Room Air 11/27/16 11/27/16 11/28/16 11/28/16 21:11 23:00 03:00 07:00 Temp 97.7 96.6 97.5 97.7 96.6 97.5 Pulse 83 69 67 65 Resp 18 18 20 B/P 160/92 167/90 130/81 144/84 Pulse Ox 90 96 94 O2 Delivery Room Air Room Air Room Air 11/28/16 07:08 Pulse Ox 93 O2 Delivery Room Air Intake and Output 11/27/16 11/27/16 11/28/16 15:00 23:00 07:00 Intake Total 720 ml 280 ml Balance 720 ml 280 ml ALCON RUIZ MD Nov 28, 2016 09:35
--- NOTE | 2016-11-28 09:38 | PDOC3 ---
Discharge Summary Visit Information Date of Admission: Nov 23, 2016 Date of Discharge: Nov 28, 2016 Admitting Diagnosis: sepsis Final Diagnosis sepsis, viral influenza A underlying COPD possible constipation marked weakness, acquired Left pleural effusion Thrombocytopenia Problems Medical Problems: (1) Dehydration Status: Acute (2) Influenza Status: Acute (3) Influenza Status: Acute Brief Hospital Course Allergies Allergies Coded Allergies Type Severity Reaction Last Updated Verified No Known Drug Allergies 08/16/14 No Vital Signs Vital Signs Date Time Temp Pulse Resp B/P Pulse Ox O2 Delivery O2 Flow Rate FiO2 11/28/16 07:08 93 Room Air 11/28/16 07:00 97.5 65 20 144/84 97.5 Lab Results Laboratory Tests Test 11/27/16 09:50 Sodium Level 140mmol/L (136-145) Potassium Level 3.3mmol/L (3.5-5.1) Chloride Level 106mmol/L (98-107) Carbon Dioxide Level 26mmol/L (21-32) Anion Gap 8 (6-14) Blood Urea Nitrogen 14mg/dL (8-26) Creatinine 0.9mg/dL (0.7-1.3) Estimated GFR (Cockcroft-Gault) 81.4 Glucose Level 126mg/dL (70-99) Calcium Level 8.5mg/dL (8.5-10.1) Magnesium Level 2.0mg/dL (1.8-2.4) Laboratory Tests Test 11/27/16 09:50 Sodium Level 140mmol/L (136-145) Potassium Level 3.3mmol/L (3.5-5.1) Chloride Level 106mmol/L (98-107) Carbon Dioxide Level 26mmol/L (21-32) Anion Gap 8 (6-14) Blood Urea Nitrogen 14mg/dL (8-26) Creatinine 0.9mg/dL (0.7-1.3) Estimated GFR (Cockcroft-Gault) 81.4 Glucose Level 126mg/dL (70-99) Calcium Level 8.5mg/dL (8.5-10.1) Magnesium Level 2.0mg/dL (1.8-2.4) Brief Hospital Course Mr. Palomares is a 81 old gentleman admitted fatigued, myalgia, fevers. on 11/23/2016 flu swab was positive. He had fallen one time at home and in the primary care doctor's office and was admitted, febrile and sepsis tamifly started, nebs, oxygen, supportive care he could not transfer without full assist for a few days, but was markedly improved on 11/28 send home health Discharge Information Condition at Discharge: Improved Follow Up: Weeks Disposition/Orders: D/C to Home w/ HH Scheduled Ascorbic Acid (Vitamin C) 500 MG PO DAILY (Reported) Calcium Carbonate/Vitamin D3 (Calcium 500 + D Tablet) 1 EACH PO DAILY (Reported ) Carvedilol (Carvedilol) 1 TAB PO BID (Reported) Clopidogrel Bisulfate (Clopidogrel) 1 TAB PO DAILY (Reported) Fexofenadine Hcl (Fina Allergy) 1 TAB PO DAILY (Reported) Glucosamine Sulfate 2KCL (Glucosamine) 1,000 MG PO DAILY (Reported) Lansoprazole (Lansoprazole) 1 CAP PO DAILY (Reported) Levothyroxine Sodium (Levothyroxine Sodium) 112 MCG PO DAILYAC (Reported) Lisinopril (Prinivil) 1 TAB PO DAILY (Reported) Multivitamin (Multi-Day Vitamins) 1 TAB PO DAILY (Reported) Ranolazine (Ranexa) 500 MG PO BID Simvastatin (Simvastatin) 20 MG PO HS (Reported) Vitamin E Mixed (Vitamin E) 400 UNIT PO DAILY (Reported) Scheduled PRN Nitroglycerin (Nitrostat) 0.4 MG SL PRN Q5MIN PRN PRN CHEST PAIN Miscellaneous Medications ([herlax]) (Reported) Patient Instructions Patient Instructions time < 30 min ALCON RUIZ MD Nov 28, 2016 09:38
[2016-11-28] MEDS: MULTIVITAMIN with MINERAL TABLET. PO SCH (10:38)
[2016-11-28] MEDS: PANTOPRAZOLE 40 MG TABLET. PO SCH (10:39)
[2016-11-28] MEDS: RANOLAZINE 500 MG TAB.ER.12H PO SCH (10:39)
[2016-11-28] MEDS: CLOPIDOGREL BISULFATE 75 MG TABLET PO SCH (10:40)
[2016-11-28] MEDS: ASCORBIC ACID 500 MG TABLET PO SCH (10:40)
[2016-11-28] MEDS: CALCIUM CARB/VIT D3 500/200 TABLET PO SCH (10:40)
[2016-11-28] MEDS: VITAMIN E 200 UNIT CAPSULE. PO SCH (10:40)
[2016-11-28] MEDS: CARVEDILOL 3.125 MG TABLET PO SCH (10:41)
[2016-11-28] MEDS: OSELTAMIVIR 75 MG CAPSULE PO SCH (10:41)
[2016-11-28 10:42] VITALS: BP 144/84
[2016-11-28] MEDS: LISINOPRIL 20 MG TABLET PO SCH (10:42)
== END 2016-11-28 11:05 | disposition home health service (06) | DRG 871 ==
LOC: ER 16:11 → OBSVTOIN 19:16 → 5 NORTH 19:16
PROVIDERS: ADMIT Internal Medicine; ATTEND Internal Medicine
DX: A41.89 Other specified sepsis (principal); J18.9 Pneumonia, unspecified organism; J96.01 Acute respiratory failure with hypoxia; J44.1 Chronic obstructive pulmonary disease with (acute) exacerbation; J44.0 Chronic obstructive pulmonary disease with (acute) lower respiratory infection; J90 Pleural effusion, not elsewhere classified; D69.6 Thrombocytopenia, unspecified; E03.9 Hypothyroidism, unspecified; E78.00 Pure hypercholesterolemia, unspecified; E78.5 Hyperlipidemia, unspecified; I10 Essential (primary) hypertension; I25.10 Atherosclerotic heart disease of native coronary artery without angina pectoris; J10.1 Influenza due to other identified influenza virus with other respiratory manifestations; M79.1 Myalgia; K21.9 Gastro-esophageal reflux disease without esophagitis; E87.5 Hyperkalemia; K59.00 Constipation, unspecified; N40.0 Benign prostatic hyperplasia without lower urinary tract symptoms; Z82.49 Family history of ischemic heart disease and other diseases of the circulatory system; Z87.891 Personal history of nicotine dependence; Z95.5 Presence of coronary angioplasty implant and graft; Z79.82 Long term (current) use of aspirin
CPT/HCPCS: 36415; 36600; 71010; 71260; 80048; 80076; 81001; 82805; 83605; 83690; 83735; 83880; 84484; 85027; 87086; 87804; 93005; 93306; 94250; 94640; 94760; J2020; J7030; J7620; 97116; 97535; 99285-25

== ENCOUNTER 2017-01-23 16:13 | Inpatient (IN) | payer OTHER ==
[~2017-01-23] VITALS: Ht 172.7 cm; Wt 70.9 kg
[~2017-01-23 16:13] MED LIST changes: +CLOP75TA PO; +GUAI5SYR PO; +IPRA3AMP NEB; +LANS30CA PO; +LISI20TA PO; +MULT-208 PO
--- NOTE | 2017-01-23 17:10 | ED.ADGEN ---
Past Medical History Past Medical History: CAD, GERD, High Cholesterol, Hypertension, Hypothyroid Additional Past Medical Histor: ENVIRONMENTAL ALLERGIES Past Surgical History: TURP Additional Past Surgical Histo: CARDIAC STENT, SHOULDER & ANKLE SX, CATARACT SX Alcohol Use: None Drug Use: None Adult General Chief Complaint Chief Complaint: DIZZY/LIGHT HEADED HPI HPI Patient is a 81 year old female brought to emergency department by ambulance. Just prior to arrival the patient was attempting to get off of his riding lawnmower when his left-side Wendy out causing him to fall. Patient states he has had intermittent left-sided weakness for about 2 weeks. Weakness was so profound that he was unable to lift himself back up off the ground. He laid other for approximately 40 minutes before his came to give him some assistance. However, the patient states that his weakness is almost entirely resolved this point. Patient also notes that he is experiencing dizziness but this is consistent with his chronic and long-standing vertigo. He denies any other recent illness. Denies headache or visual disturbance. Denies chest pain. Review of Systems Review of Systems Constitutional: Denies fever or chills. [] Eyes: Denies change in visual acuity. [] HENT: Denies nasal congestion or sore throat. [] Respiratory: Denies cough or shortness of breath. [] Cardiovascular: Denies chest pain or edema. [] GI: Denies abdominal pain, nausea, vomiting, bloody stools or diarrhea. [] : Denies dysuria. [] Musculoskeletal: Denies back pain or joint pain. [] Integument: Denies rash. [] Neurologic: Denies headache, focal weakness or sensory changes. [] Endocrine: Denies polyuria or polydipsia. [] Lymphatic: Denies swollen glands. [] Psychiatric: Denies depression or anxiety. [] Current Medications Current Medications Current Medications Medications (Trade) Dose Ordered Sig/Julian Start Time Stop Time Status Last Admin Dose Admin Acetaminophen (Tylenol) 650 mg PRN Q6HRS PRN 01/23/17 19:00 Albuterol/ Ipratropium (Duoneb) 3 ml RTQID 01/23/17 20:00 Carvedilol (Coreg) 3.125 mg BIDWMEALS 01/23/17 19:00 Clopidogrel Bisulfate (Plavix) 75 mg DAILYWBKFT 01/24/17 08:00 Docusate Sodium (Colace) 100 mg BID 01/23/17 21:00 Enoxaparin Sodium (Lovenox 40mg Syringe) 40 mg Q24H 01/23/17 21:00 Guaifenesin (Robitussin Dm) 10 ml PRN Q6HRS PRN 01/23/17 19:00 Hydralazine HCl (Apresoline) 10 mg PRN Q4HRS PRN 01/23/17 19:00 Levothyroxine Sodium (Synthroid) 112 mcg DAILYAC 01/24/17 07:30 Lisinopril (Prinivil) 20 mg DAILY 01/24/17 09:00 Magnesium Hydroxide (Milk Of Magnesia) 2,400 mg PRN Q12HR PRN 01/23/17 19:15 Nitroglycerin (Nitrostat) 0.4 mg PRN Q5MIN PRN 01/23/17 19:00 Ondansetron HCl (Zofran) 4 mg PRN Q6HRS PRN 01/23/17 19:00 Pantoprazole Sodium (Protonix) 40 mg DAILYAC 01/24/17 07:30 Ranolazine (Ranexa) 500 mg BID 01/23/17 21:00 Senna/Docusate Sodium (Senna Plus) 1 tab BID 01/23/17 21:00 Simvastatin (Zocor) 20 mg HS 01/23/17 21:00 Allergies Allergies Allergies Coded Allergies Type Severity Reaction Last Updated Verified No Known Drug Allergies 08/16/14 No Physical Exam Physical Exam Constitutional: Well developed, well nourished, no acute distress, non-toxic appearance. [] HENT: Normocephalic, atraumatic, bilateral external ears normal, oropharynx moist, no oral exudates, nose normal. [] Eyes: PERRLA, EOMI, conjunctiva normal, no discharge. [] Neck: Normal range of motion, no tenderness, supple, no stridor. [] Cardiovascular:Heart rate regular rhythm, no murmur [] Lungs & Thorax: Bilateral breath sounds clear to auscultation [] Abdomen: Bowel sounds normal, soft, no tenderness, no masses, no pulsatile masses. [] Skin: Warm, dry, no erythema, no rash. [] Back: No tenderness, no CVA tenderness. [] Extremities: No tenderness, no cyanosis, no clubbing, ROM intact, no edema. [] Neurologic: Alert and oriented X 3, normal motor function, normal sensory function, no focal deficits noted. [] Psychologic: Affect normal, judgement normal, mood normal. [] Current Patient Data Vital Signs Vital Signs Date Time Temp Pulse Resp B/P Pulse Ox O2 Delivery O2 Flow Rate FiO2 01/23/17 18:24 80 16 179/76 98 Room Air 01/23/17 16:27 97.9 97.9 Lab Values Laboratory Tests Test 01/23/17 16:35 01/23/17 16:53 Urine Collection Type Unknown Urine Color Yellow Urine Clarity Clear Urine pH 6.0 Urine Specific [place] 1.015 Urine Protein Negativemg/dL (NEG-TRACE) Urine Glucose (UA) Negativemg/dL (NEG) Urine Ketones (Stick) Negativemg/dL (NEG) Urine Blood Negative (NEG) Urine Nitrite Negative (NEG) Urine Bilirubin Negative (NEG) Urine Urobilinogen Dipstick 0.2mg/dL (0.2 mg/dL) Urine Leukocyte Esterase Negative (NEG) Urine RBC Occ/HPF (0-2) Urine WBC Occ/HPF (0-4) Urine Squamous Epithelial Cells Occ/LPF Urine Bacteria 0/HPF (0-FEW) Urine Opiates Screen Neg (NEG) Urine Methadone Screen Neg (NEG) Urine Barbiturates Neg (NEG) Urine Phencyclidine Screen Neg (NEG) Urine Amphetamine/Methamphetamine Neg (NEG) Urine Benzodiazepines Screen Neg (NEG) Urine Cocaine Screen Neg (NEG) Urine Cannabinoids Screen Neg (NEG) Urine Ethyl Alcohol Neg (NEG) White Blood Count 7.6x10^3/uL (4.0-11.0) Red Blood Count 4.79x10^6/uL (4.30-5.70) Hemoglobin 14.7g/dL (13.0-17.5) Hematocrit 44.4% (39.0-53.0) Mean Corpuscular Volume 93fL (79-100) Mean Corpuscular Hemoglobin 31pg (25-35) Mean Corpuscular Hemoglobin Concent 33g/dL (31-37) Red Cell Distribution Width 13.7% (11.5-14.5) Platelet Count 116x10^3/uL (140-400) L Neutrophils (%) (Auto) 80% (31-73) H Lymphocytes (%) (Auto) 11% (24-48) L Monocytes (%) (Auto) 7% (0-9) Eosinophils (%) (Auto) 1% (0-3) Basophils (%) (Auto) 1% (0-3) Neutrophils # (Auto) 6.1x10^3uL (1.8-7.7) Lymphocytes # (Auto) 0.9x10^3/uL (1.0-4.8) L Monocytes # (Auto) 0.5x10^3/uL (0.0-1.1) Eosinophils # (Auto) 0.1x10^3/uL (0.0-0.7) Basophils # (Auto) 0.0x10^3/uL (0.0-0.2) Prothrombin Time 13.4SEC (11.7-14.0) Prothrombin Time INR 1.1 (0.8-1.1) PTT 29SEC (24-38) Sodium Level 140mmol/L (136-145) Potassium Level 4.4mmol/L (3.5-5.1) Chloride Level 102mmol/L (98-107) Carbon Dioxide Level 30mmol/L (21-32) Anion Gap 8 (6-14) Blood Urea Nitrogen 13mg/dL (8-26) Creatinine 1.0mg/dL (0.7-1.3) Estimated GFR (Cockcroft-Gault) 72.1 Glucose Level 102mg/dL (70-99) H Calcium Level 9.7mg/dL (8.5-10.1) Total Bilirubin 0.6mg/dL (0.2-1.0) Direct Bilirubin 0.1mg/dL (0.0-0.2) Aspartate Amino Transferase (AST) 15U/L (15-37) Alanine Aminotransferase (ALT) 23U/L (16-63) Alkaline Phosphatase 66U/L (46-116) Troponin I Quantitative < 0.017ng/mL (0.000-0.055) VJ-Oqp-C-Type Natriuretic Peptide 456pg/mL (0-449) H Total Protein 6.8g/dL (6.4-8.2) Albumin 3.6g/dL (3.4-5.0) Laboratory Tests 01/23/17 16:53 Laboratory Tests 01/23/17 16:53 EKG EKG EKG interpreted by me, normal sinus rhythm, 83 bpm, no ST segment elevation, normal axis. [] Radiology/Procedures Radiology/Procedures Chest x-ray interpreted by me, no acute cardiopulmonary process PROCEDURE CT head without intravenous contrast. HISTORY Left-sided weakness, fall with vertigo for 2 weeks. TECHNIQUE Axial images are obtained of the head from the skull base through the vertex without IV contrast Exposure: One or more of the following individualized dose reduction techniques were utilized for this examination: 1. Automated exposure control. 2. Adjustment of the mA and/or kV according to patient size. 3. Use of iterative reconstruction technique. COMPARISON None. FINDINGS No obvious ischemic infarction is identified. No acute intracranial hemorrhage is seen. There appears to be slightly increased density, someone masslike lesion involving the deep right frontal white matter relative to the contralateral size. This masslike area could measure up to about 4 centimeters. There does appear to be some white matter edema located more inferiorly near the right lateral ventricle. Intracranial mass is possible. There is no significant shift of midline structures. Bone windows demonstrate no acute calvarial abnormality.The visualized paranasal sinuses appear clear. IMPRESSION Possible right frontal mass. Recommend further evaluation with nonemergent MRI of the brain without and with intravenous contrast. Electronically signed by: Ketan Sahu MD (Jan 23, 2017 17:54:57) DICTATED and SIGNED BY: KETAN SAHU MD DATE: 01/23/17 1754 CC: WENDY RODARTE MD; SEJAL CEDENO MD ~[] Course & Med Decision Making Course & Med Decision Making Pertinent Labs and Imaging studies reviewed. (See chart for details) Overall, the patient's laboratory values are reassuring however he does have a new brain mass. I have spoken with the family and updated them on this news and answered their questions about that I can. At this point, he will be admitted to the hospitalist for further evaluation and treatment along with consultation by neurology. [] Dragon Disclaimer Dragon Disclaimer This electronic medical record was generated, in whole or in part, using a voice recognition dictation system. WENDY RODARTE MD Jan 23, 2017 17:10
[2017-01-23 17:23] LABS: BILIRUBIN,URINE NEGATIVE (NEG); GLUCOSE,URINE NEGATIVE (NEG); NITRITE,URINE NEGATIVE (NEG); PROTEIN,URINE NEGATIVE (NEG-TRACE); UROBILINOGEN,URINE 0.2 mg/dL (0.2 mg/dL)
[2017-01-23 17:29] LABS: BACTERIA,URINE 0 /HPF (0-FEW); RBC,URINE OCC /HPF (0-2); SQUAMOUS EPITHELIAL CELL,UR OCC /LPF; WBC,URINE OCC /HPF (0-4)
[2017-01-23 17:30] LABS: BARBITURATES NEG (NEG); BENZODIAZEPINES NEG (NEG); CANNABINOIDS NEG (NEG); COCAINE NEG (NEG); ETHANOL, URINE NEG (NEG); METHADONE NEG (NEG); OPIATES NEG (NEG); PHENCYCLIDINE NEG (NEG)
[2017-01-23 17:31] LABS: INR 1.1 (0.8-1.1); PROTHROMBIN TIME PATIENT 13.4 SEC (11.7-14.0)
[2017-01-23 17:35] LABS: CALCIUM 9.7 mg/dL (8.5-10.1); GFR 72.1; POTASSIUM 4.4 mmol/L (3.5-5.1)
[2017-01-23 17:41] LABS: ALBUMIN 3.6 g/dL (3.4-5.0); DIRECT BILIRUBIN 0.1 mg/dL (0.0-0.2); TOTAL BILIRUBIN 0.6 mg/dL (0.2-1.0); TOTAL PROTEIN 6.8 g/dL (6.4-8.2)
[2017-01-23 17:55] LABS: BASO % 1 % (0-3); EOS % 1 % (0-3); HEMATOCRIT 44.4 % (39.0-53.0); HEMOGLOBIN 14.7 g/dL (13.0-17.5); LYMPH # 0.9 x10^3/uL (1.0-4.8); LYMPH % 11 % (24-48); MEAN CORPUSCULAR HEMOGLOBIN 31 pg (25-35); MEAN CORPUSCULAR HGB CONC 33 g/dL (31-37); MEAN CORPUSCULAR VOLUME 93 fL (79-100); MONO % 7 % (0-9); NEUT % 80 % (31-73); PLATELET COUNT 116 x10^3/uL (140-400); RED BLOOD COUNT 4.79 x10^6/uL (4.30-5.70); RED CELL DISTRIBUTION WIDTH 13.7 % (11.5-14.5); WHITE BLOOD COUNT 7.6 x10^3/uL (4.0-11.0)
--- NOTE | 2017-01-23 17:56 | RAD ---
PROCEDURE CT head without intravenous contrast. HISTORY Left-sided weakness, fall with vertigo for 2 weeks. TECHNIQUE Axial images are obtained of the head from the skull base through the vertex without IV contrast Exposure: One or more of the following individualized dose reduction techniques were utilized for this examination: 1. Automated exposure control. 2. Adjustment of the mA and/or kV according to patient size. 3. Use of iterative reconstruction technique. COMPARISON None. FINDINGS No obvious ischemic infarction is identified. No acute intracranial hemorrhage is seen. There appears to be slightly increased density, someone masslike lesion involving the deep right frontal white matter relative to the contralateral size. This masslike area could measure up to about 4 centimeters. There does appear to be some white matter edema located more inferiorly near the right lateral ventricle. Intracranial mass is possible. There is no significant shift of midline structures. Bone windows demonstrate no acute calvarial abnormality.The visualized paranasal sinuses appear clear. IMPRESSION Possible right frontal mass. Recommend further evaluation with nonemergent MRI of the brain without and with intravenous contrast. Electronically signed by: Ketan Sahu MD (Jan 23, 2017 17:54:57)
[2017-01-23] MEDS ORDERED: ONDANSETRON PF 4 MG/2 ML VIAL. IV PRN ×2 (18:30→19:00)
[2017-01-23] MEDS ORDERED: GUAIFENESIN DM 200MG/20MG 10 ML SYRUP. PO PRN (19:00)
[2017-01-23] MEDS ORDERED: hydrALAZINE 20 MG/ML VIAL. IVP PRN (19:00)
[2017-01-23] MEDS ORDERED: ACETAMINOPHEN 325 MG TABLET. PO PRN (19:00)
[2017-01-23] MEDS ORDERED: NITROGLYCERIN SUBLINGUAL 0.4 MG BOTTLE OF 25. SL PRN (19:00)
--- NOTE | 2017-01-23 19:03 | PDOC1 ---
History and Physical Date of Admission Date of Admission 01/23/17 Identification/Chief Complaint Chief Complaint left side weakness Problems: Source Source: Chart review, Patient History of Present Illness History of Present Illness HPI HPI Patient is a 81 year old female brought to emergency department by ambulance for left side weakness. Pt has been having left side weakness for 2 weeks, hard to put shoes on. Also has vertigo for a long time, recently getting worse. No headache, vision or hearing change. Today he was mowing the lawn, then generalized weakness and lye on the floor cannot get up. called ambulance. no fever, chills, cough, sob. + constipation. feels more anxious than before CT showed a right side mass 4cm. Past Medical History Cardiovascular: CAD, HTN, Hyperlipidemia, Other CENTRAL NERVOUS SYSTEM: Other GI: GERD Heme/Onc: No pertinent hx Hepatobiliary: No pertinent hx Psych: No pertinent hx Rheumatologic: No pertinent hx Infectious disease: No pertinent hx Renal/: Benign prostatic enlarg. Endocrine: Hypothyroidism Past Surgical History Past Surgical History: Other Family History Family History: Heart Disease Social History Smoke: Quit ALCOHOL: none Drugs: None Current Problem List Problem List Problems Medical Problems: (1) Brain mass Status: Acute (2) CAD (coronary artery disease) Status: Acute (3) Weakness Status: Acute Current Medications Current Medications Current Medications Medications (Trade) Dose Ordered Sig/Julian Start Time Stop Time Status Last Admin Dose Admin Ondansetron HCl (Zofran) 4 mg PRN Q8HRS PRN 01/23/17 18:30 01/24/17 18:29 Allergies Allergies Allergies Coded Allergies Type Severity Reaction Last Updated Verified No Known Drug Allergies 08/16/14 No ROS Review of System CONSTITUTIONAL: No fever or chills EYES: No recent changes SKIN: No rash or itching CARDIOVASCULAR: No chest pain, syncope, palpitations, or edema RESPIRATORY: No SOB or cough GASTROINTESTINAL: No nausea, vomiting or abdominal pain NEUROLOGICAL: No headaches or weakness ENDOCRINE: No cold or heat intolerance GENITOURINARY: No urgency or frequency of urination MUSCULOSKELETAL: No back pain or joint pain LYMPHATICS: No enlarged lymph nodes PSYCHIATRIC: No anxiety or depression Physical Exam Physical Exam GEN.: No apparent distress. Alert and oriented. HEENT: Head is normocephalic, atraumatic NECK: Supple. LUNGS: Clear to auscultation. HEART: RRR, S1, S2 present. Peripheral pulses intact ABDOMEN: Soft, nontender. Positive bowel sounds. EXTREMITIES: Without any cyanosis. left side strength 4/5 NEUROLOGIC: Normal speech, normal tone PSYCHIATRIC: Normal affect, normal mood. SKIN: No ulcerations Vitals Vitals Vital Signs Date Time Temp Pulse Resp B/P Pulse Ox O2 Delivery O2 Flow Rate FiO2 01/23/17 18:24 80 16 179/76 98 Room Air 01/23/17 16:27 97.9 97.9 Labs Labs Laboratory Tests Test 01/23/17 16:35 01/23/17 16:53 Urine Collection Type Unknown Urine Color Yellow Urine Clarity Clear Urine pH 6.0 Urine Specific [place] 1.015 Urine Protein Negativemg/dL (NEG-TRACE) Urine Glucose (UA) Negativemg/dL (NEG) Urine Ketones (Stick) Negativemg/dL (NEG) Urine Blood Negative (NEG) Urine Nitrite Negative (NEG) Urine Bilirubin Negative (NEG) Urine Urobilinogen Dipstick 0.2mg/dL (0.2 mg/dL) Urine Leukocyte Esterase Negative (NEG) Urine RBC Occ/HPF (0-2) Urine WBC Occ/HPF (0-4) Urine Squamous Epithelial Cells Occ/LPF Urine Bacteria 0/HPF (0-FEW) Urine Opiates Screen Neg (NEG) Urine Methadone Screen Neg (NEG) Urine Barbiturates Neg (NEG) Urine Phencyclidine Screen Neg (NEG) Urine Amphetamine/Methamphetamine Neg (NEG) Urine Benzodiazepines Screen Neg (NEG) Urine Cocaine Screen Neg (NEG) Urine Cannabinoids Screen Neg (NEG) Urine Ethyl Alcohol Neg (NEG) White Blood Count 7.6x10^3/uL (4.0-11.0) Red Blood Count 4.79x10^6/uL (4.30-5.70) Hemoglobin 14.7g/dL (13.0-17.5) Hematocrit 44.4% (39.0-53.0) Mean Corpuscular Volume 93fL (79-100) Mean Corpuscular Hemoglobin 31pg (25-35) Mean Corpuscular Hemoglobin Concent 33g/dL (31-37) Red Cell Distribution Width 13.7% (11.5-14.5) Platelet Count 116x10^3/uL (140-400) Neutrophils (%) (Auto) 80% (31-73) Lymphocytes (%) (Auto) 11% (24-48) Monocytes (%) (Auto) 7% (0-9) Eosinophils (%) (Auto) 1% (0-3) Basophils (%) (Auto) 1% (0-3) Neutrophils # (Auto) 6.1x10^3uL (1.8-7.7) Lymphocytes # (Auto) 0.9x10^3/uL (1.0-4.8) Monocytes # (Auto) 0.5x10^3/uL (0.0-1.1) Eosinophils # (Auto) 0.1x10^3/uL (0.0-0.7) Basophils # (Auto) 0.0x10^3/uL (0.0-0.2) Prothrombin Time 13.4SEC (11.7-14.0) Prothromb Time International Ratio 1.1 (0.8-1.1) Activated Partial Thromboplast Time 29SEC (24-38) Sodium Level 140mmol/L (136-145) Potassium Level 4.4mmol/L (3.5-5.1) Chloride Level 102mmol/L (98-107) Carbon Dioxide Level 30mmol/L (21-32) Anion Gap 8 (6-14) Blood Urea Nitrogen 13mg/dL (8-26) Creatinine 1.0mg/dL (0.7-1.3) Estimated GFR (Cockcroft-Gault) 72.1 Glucose Level 102mg/dL (70-99) Calcium Level 9.7mg/dL (8.5-10.1) Total Bilirubin 0.6mg/dL (0.2-1.0) Direct Bilirubin 0.1mg/dL (0.0-0.2) Aspartate Amino Transf (AST/SGOT) 15U/L (15-37) Alanine Aminotransferase (ALT/SGPT) 23U/L (16-63) Alkaline Phosphatase 66U/L (46-116) Troponin I Quantitative < 0.017ng/mL (0.000-0.055) SI-Ydh-X-Type Natriuretic Peptide 456pg/mL (0-449) Total Protein 6.8g/dL (6.4-8.2) Albumin 3.6g/dL (3.4-5.0) Laboratory Tests Test 01/23/17 16:35 01/23/17 16:53 Urine Collection Type Unknown Urine Color Yellow Urine Clarity Clear Urine pH 6.0 Urine Specific [place] 1.015 Urine Protein Negativemg/dL (NEG-TRACE) Urine Glucose (UA) Negativemg/dL (NEG) Urine Ketones (Stick) Negativemg/dL (NEG) Urine Blood Negative (NEG) Urine Nitrite Negative (NEG) Urine Bilirubin Negative (NEG) Urine Urobilinogen Dipstick 0.2mg/dL (0.2 mg/dL) Urine Leukocyte Esterase Negative (NEG) Urine RBC Occ/HPF (0-2) Urine WBC Occ/HPF (0-4) Urine Squamous Epithelial Cells Occ/LPF Urine Bacteria 0/HPF (0-FEW) Urine Opiates Screen Neg (NEG) Urine Methadone Screen Neg (NEG) Urine Barbiturates Neg (NEG) Urine Phencyclidine Screen Neg (NEG) Urine Amphetamine/Methamphetamine Neg (NEG) Urine Benzodiazepines Screen Neg (NEG) Urine Cocaine Screen Neg (NEG) Urine Cannabinoids Screen Neg (NEG) Urine Ethyl Alcohol Neg (NEG) White Blood Count 7.6x10^3/uL (4.0-11.0) Red Blood Count 4.79x10^6/uL (4.30-5.70) Hemoglobin 14.7g/dL (13.0-17.5) Hematocrit 44.4% (39.0-53.0) Mean Corpuscular Volume 93fL (79-100) Mean Corpuscular Hemoglobin 31pg (25-35) Mean Corpuscular Hemoglobin Concent 33g/dL (31-37) Red Cell Distribution Width 13.7% (11.5-14.5) Platelet Count 116x10^3/uL (140-400) Neutrophils (%) (Auto) 80% (31-73) Lymphocytes (%) (Auto) 11% (24-48) Monocytes (%) (Auto) 7% (0-9) Eosinophils (%) (Auto) 1% (0-3) Basophils (%) (Auto) 1% (0-3) Neutrophils # (Auto) 6.1x10^3uL (1.8-7.7) Lymphocytes # (Auto) 0.9x10^3/uL (1.0-4.8) Monocytes # (Auto) 0.5x10^3/uL (0.0-1.1) Eosinophils # (Auto) 0.1x10^3/uL (0.0-0.7) Basophils # (Auto) 0.0x10^3/uL (0.0-0.2) Prothrombin Time 13.4SEC (11.7-14.0) Prothromb Time International Ratio 1.1 (0.8-1.1) Activated Partial Thromboplast Time 29SEC (24-38) Sodium Level 140mmol/L (136-145) Potassium Level 4.4mmol/L (3.5-5.1) Chloride Level 102mmol/L (98-107) Carbon Dioxide Level 30mmol/L (21-32) Anion Gap 8 (6-14) Blood Urea Nitrogen 13mg/dL (8-26) Creatinine 1.0mg/dL (0.7-1.3) Estimated GFR (Cockcroft-Gault) 72.1 Glucose Level 102mg/dL (70-99) Calcium Level 9.7mg/dL (8.5-10.1) Total Bilirubin 0.6mg/dL (0.2-1.0) Direct Bilirubin 0.1mg/dL (0.0-0.2) Aspartate Amino Transf (AST/SGOT) 15U/L (15-37) Alanine Aminotransferase (ALT/SGPT) 23U/L (16-63) Alkaline Phosphatase 66U/L (46-116) Troponin I Quantitative < 0.017ng/mL (0.000-0.055) PF-Pgc-Z-Type Natriuretic Peptide 456pg/mL (0-449) Total Protein 6.8g/dL (6.4-8.2) Albumin 3.6g/dL (3.4-5.0) VTE Prophylaxis Ordered VTE Prophylaxis Devices: Yes VTE Pharmacological Prophylaxi: Yes Assessment/Plan Assessment/Plan 1. left side weakness, 2/2 brain mass likely 2. h/o CAD with pci 3. htn 4. hld 5. hypothyroidism 6. GERD 7. constipation 8. chronic vertigo plan: 1. neuro, neurosx consult 2. mri brain 3. cont home meds dvt ppx stool softner BREEZY GRIFFIN MD Jan 23, 2017 19:03
[2017-01-23] MEDS ORDERED: MAGNESIUM HYDROXIDE 2,400 MG/30 ML ORAL.SUSP. PO PRN (19:15)
[2017-01-23 20:31] VITALS: BP 158/80
[2017-01-23] MEDS: IPRATRPIUM/ALBUTEROL 0.5/2.5MG 3 ML NEBU. NEB SCH (20:39)
[2017-01-23] MEDS: DOCUSATE SODIUM 100 MG CAPSULE. PO SCH (21:13)
[2017-01-23] MEDS: SENNOSIDES/DOCUSATE 8.6/50MG TABLET. PO SCH (21:13)
[2017-01-23] MEDS: RANOLAZINE 500 MG TAB.ER.12H PO SCH (21:13)
[2017-01-23] MEDS: CARVEDILOL 3.125 MG TABLET. PO SCH (21:13)
[2017-01-23] MEDS: SIMVASTATIN 20 MG TABLET PO SCH (21:13)
[2017-01-23] MEDS: ENOXAPARIN 40 MG/0.4 ML SYRINGE. SQ SCH (21:14)
[2017-01-23 23:00] VITALS: BP 158/68
[2017-01-24] MEDS ORDERED: TAMS0.4C2 PO (00:04)
[2017-01-24] MEDS ORDERED: MECL25TA3 PO (00:04)
[2017-01-24] MEDS ORDERED: GUAI600T38 PO (00:04)
[2017-01-24 03:00] VITALS: BP 138/70
[2017-01-24 05:27] LABS: BASO % 1 % (0-3); EOS % 3 % (0-3); HEMATOCRIT 41.1 % (39.0-53.0); HEMOGLOBIN 13.6 g/dL (13.0-17.5); LYMPH # 1.4 x10^3/uL (1.0-4.8); LYMPH % 30 % (24-48); MEAN CORPUSCULAR HEMOGLOBIN 30 pg (25-35); MEAN CORPUSCULAR HGB CONC 33 g/dL (31-37); MEAN CORPUSCULAR VOLUME 91 fL (79-100); MONO % 9 % (0-9); NEUT % 57 % (31-73); PLATELET COUNT 106 x10^3/uL (140-400); RED CELL DISTRIBUTION WIDTH 13.7 % (11.5-14.5); WHITE BLOOD COUNT 4.8 x10^3/uL (4.0-11.0)
[2017-01-24 05:40] LABS: CALCIUM 8.9 mg/dL (8.5-10.1); GFR 72.1; POTASSIUM 3.8 mmol/L (3.5-5.1)
[2017-01-24 07:50] VITALS: BP 105/75
[2017-01-24] MEDS: IPRATRPIUM/ALBUTEROL 0.5/2.5MG 3 ML NEBU. NEB SCH ×4 (07:58→18:19)
[2017-01-24] MEDS: SENNOSIDES/DOCUSATE 8.6/50MG TABLET. PO SCH ×2 (08:14→21:15)
[2017-01-24] MEDS: LEVOTHYROXINE 112 MCG TABLET PO SCH (08:14)
[2017-01-24] MEDS: CLOPIDOGREL BISULFATE 75 MG TABLET PO SCH (08:14)
[2017-01-24] MEDS: PANTOPRAZOLE 40 MG TABLET.DR. PO SCH (08:14)
[2017-01-24] MEDS: RANOLAZINE 500 MG TAB.ER.12H PO SCH ×2 (08:14→21:15)
[2017-01-24] MEDS: DOCUSATE SODIUM 100 MG CAPSULE. PO SCH ×2 (08:14→21:15)
[2017-01-24] MEDS: LISINOPRIL 20 MG TABLET PO SCH (08:15)
--- NOTE | 2017-01-24 09:23 | RAD ---
Portable AP upright view CXR: Clinical indications: CVA. Weakness. Comparison: November 23, 2016. Findings: No acute lung infiltrate or pleural effusion or pulmonary edema or lung mass or pneumothorax is seen. The heart size, pulmonary vasculature, mediastinum and both kaur are unremarkable. Old right clavicular fracture is seen. Impression: No acute radiographic abnormality is seen.
[2017-01-24] MEDS: CARVEDILOL 3.125 MG TABLET. PO SCH ×2 (09:42→17:39)
[2017-01-24 11:00] VITALS: BP 145/64
[2017-01-24] MEDS ORDERED: GADOBUTROL 7.5 MMOL/7.5 ML VIAL IV ONE (11:15)
--- NOTE | 2017-01-24 12:08 | PDOC ---
SUBJECTIVE Subjective Pt seen/examined. Imaging reviewed. Full consult to follow. 81M with CAD with stent on plavix with increasing left weakness over months and worse in weeks. Imaging revealed approx 4cm homogenously enhancing parafalcine right frontal mass. Exam with 4/5 strength on left. Discussed potential surgery for this but would most optimally need to be off plavix for 7 days prior and for some time in the post-operative period. Would need consensus from cardiology and other appropriate medicine services regarding clearance/risk stratification for potential large craniotomy procedure. Despite its appearance , will check systemic imaging, as well. Following. OBJECTIVE Vital Signs Vital Signs Date Time Temp Pulse Resp B/P Pulse Ox O2 Delivery O2 Flow Rate FiO2 01/24/17 11:00 97.8 63 18 145/64 99 Room Air 97.8 01/24/17 09:42 75 137/66 01/24/17 08:15 61 105/75 01/24/17 08:14 61 105/75 01/24/17 08:00 Room Air 01/24/17 07:59 97 Room Air 01/24/17 07:50 97.8 60 18 105/75 98 Room Air 97.8 01/24/17 03:00 97.5 62 20 138/70 Room Air 97.5 01/23/17 23:00 97.8 78 19 158/68 96 Room Air 97.8 01/23/17 21:13 97 158/80 01/23/17 21:13 61 158/80 01/23/17 20:39 Room Air 01/23/17 20:31 98.4 61 20 158/80 98 Room Air 98.4 01/23/17 20:00 Room Air 01/23/17 19:32 88 29 178/79 97 Room Air 01/23/17 19:02 88 23 161/79 97 Room Air 01/23/17 18:24 80 16 179/76 98 Room Air 01/23/17 17:27 80 14 165/77 98 01/23/17 16:27 97.9 66 20 175/77 97 Room Air 97.9 I & O Intake and Output 01/24/17 07:00 Output Total 1300 ml Balance -1300 ml Output Urine Total 1300 ml COMMENT Lab Laboratory Tests Test 01/23/17 16:35 01/23/17 16:53 01/24/17 04:00 Urine Collection Type Unknown Urine Color Yellow Urine Clarity Clear Urine pH 6.0 Urine Specific [place] 1.015 Urine Protein Negativemg/dL (NEG-TRACE) Urine Glucose (UA) Negativemg/dL (NEG) Urine Ketones (Stick) Negativemg/dL (NEG) Urine Blood Negative (NEG) Urine Nitrite Negative (NEG) Urine Bilirubin Negative (NEG) Urine Urobilinogen Dipstick 0.2mg/dL (0.2 mg/dL) Urine Leukocyte Esterase Negative (NEG) Urine RBC Occ/HPF (0-2) Urine WBC Occ/HPF (0-4) Urine Squamous Epithelial Cells Occ/LPF Urine Bacteria 0/HPF (0-FEW) Urine Opiates Screen Neg (NEG) Urine Methadone Screen Neg (NEG) Urine Barbiturates Neg (NEG) Urine Phencyclidine Screen Neg (NEG) Urine Amphetamine/Methamphetamine Neg (NEG) Urine Benzodiazepines Screen Neg (NEG) Urine Cocaine Screen Neg (NEG) Urine Cannabinoids Screen Neg (NEG) Urine Ethyl Alcohol Neg (NEG) White Blood Count 7.6x10^3/uL (4.0-11.0) 4.8x10^3/uL (4.0-11.0) Red Blood Count 4.79x10^6/uL (4.30-5.70) 4.50x10^6/uL (4.30-5.70) Hemoglobin 14.7g/dL (13.0-17.5) 13.6g/dL (13.0-17.5) Hematocrit 44.4% (39.0-53.0) 41.1% (39.0-53.0) Mean Corpuscular Volume 93fL (79-100) 91fL (79-100) Mean Corpuscular Hemoglobin 31pg (25-35) 30pg (25-35) Mean Corpuscular Hemoglobin Concent 33g/dL (31-37) 33g/dL (31-37) Red Cell Distribution Width 13.7% (11.5-14.5) 13.7% (11.5-14.5) Platelet Count 116x10^3/uL (140-400) 106x10^3/uL (140-400) Neutrophils (%) (Auto) 80% (31-73) 57% (31-73) Lymphocytes (%) (Auto) 11% (24-48) 30% (24-48) Monocytes (%) (Auto) 7% (0-9) 9% (0-9) Eosinophils (%) (Auto) 1% (0-3) 3% (0-3) Basophils (%) (Auto) 1% (0-3) 1% (0-3) Neutrophils # (Auto) 6.1x10^3uL (1.8-7.7) 2.7x10^3uL (1.8-7.7) Lymphocytes # (Auto) 0.9x10^3/uL (1.0-4.8) 1.4x10^3/uL (1.0-4.8) Monocytes # (Auto) 0.5x10^3/uL (0.0-1.1) 0.4x10^3/uL (0.0-1.1) Eosinophils # (Auto) 0.1x10^3/uL (0.0-0.7) 0.1x10^3/uL (0.0-0.7) Basophils # (Auto) 0.0x10^3/uL (0.0-0.2) 0.0x10^3/uL (0.0-0.2) Prothrombin Time 13.4SEC (11.7-14.0) Prothromb Time International Ratio 1.1 (0.8-1.1) Activated Partial Thromboplast Time 29SEC (24-38) Sodium Level 140mmol/L (136-145) 142mmol/L (136-145) Potassium Level 4.4mmol/L (3.5-5.1) 3.8mmol/L (3.5-5.1) Chloride Level 102mmol/L (98-107) 106mmol/L (98-107) Carbon Dioxide Level 30mmol/L (21-32) 29mmol/L (21-32) Anion Gap 8 (6-14) 7 (6-14) Blood Urea Nitrogen 13mg/dL (8-26) 12mg/dL (8-26) Creatinine 1.0mg/dL (0.7-1.3) 1.0mg/dL (0.7-1.3) Estimated GFR (Cockcroft-Gault) 72.1 72.1 Glucose Level 102mg/dL (70-99) 86mg/dL (70-99) Calcium Level 9.7mg/dL (8.5-10.1) 8.9mg/dL (8.5-10.1) Total Bilirubin 0.6mg/dL (0.2-1.0) Direct Bilirubin 0.1mg/dL (0.0-0.2) Aspartate Amino Transf (AST/SGOT) 15U/L (15-37) Alanine Aminotransferase (ALT/SGPT) 23U/L (16-63) Alkaline Phosphatase 66U/L (46-116) Troponin I Quantitative < 0.017ng/mL (0.000-0.055) GU-Drw-O-Type Natriuretic Peptide 456pg/mL (0-449) Total Protein 6.8g/dL (6.4-8.2) Albumin 3.6g/dL (3.4-5.0) GLENIS HORAN MD Jan 24, 2017 12:08
--- NOTE | 2017-01-24 12:29 | EKG ---
[facility] [address] [place] [address] Test Date: 2017-01-23 Test Time: 16:39:43 Pat Name: DICK PERRY Department: Room: Gender: M Psychiatric Registered Nurse: : 1935 Requested By: WENDY RODARET Order Number: [id number] Reading MD: Measurements Intervals [place] Rate: 83 P: 90 AR: 176 QRS: 40 QRSD: 80 T: 62 QT: 370 QTc: 435 Interpretive Statements SINUS RHYTHM VENTRICULAR PREMATURE COMPLEX(ES), BIGEMINY QRS(T) CONTOUR ABNORMALITY CONSIDER ANTEROLATERAL MYOCARDIAL DAMAGE ABNORMAL ECG RI6.01 No previous ECG available for comparison
--- NOTE | 2017-01-24 12:50 | PDOC ---
PROGRESS NOTES Chief Complaint Chief Complaint 1. left side weakness, 2/2 brain mass likely 2. NEW BRAIN MASS R side 4 cms 2. h/o CAD with pci on plavix (cards is Dr. Souza) 3. htn, controlled 4. hld 5. hypothyroidism 6. GERD 7. constipation 8. chronic vertigo History of Present Illness History of Present Illness NO headache Some left sided weakness but nothing remarkable Just had mRI brain to better see new solitary brain mass NEurosx note reviewed Plans of possible excision if gutierrez CT is neg for mets Needs to be off plavix though for at least 7 days - known pt of Dr. 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 PALn: Agree with gutierrez CT r.o mets Await official MRI report Neuro checks often COnsult cards for pre op clearance Dw RN Keep CVC for now Dw whole fam at bedside too Vitals Vitals Vital Signs Date Time Temp Pulse Resp B/P Pulse Ox O2 Delivery O2 Flow Rate FiO2 01/24/17 12:00 100 Room Air 01/24/17 11:00 97.8 63 18 145/64 97.8 Physical Exam General: Alert, Oriented X3, Cooperative, No acute distress Heart: Regular rate, Normal S1, Normal S2, No murmurs Lungs: Clear, Other Abdomen: Normal bowel sounds, Soft, No tenderness Extremities: No clubbing, No cyanosis, No edema, Normal pulses Skin: No rashes, No breakdown, No significant lesion Labs LABS Laboratory Tests Test 01/23/17 16:35 01/23/17 16:53 01/24/17 04:00 Urine Collection Type Unknown Urine Color Yellow Urine Clarity Clear Urine pH 6.0 Urine Specific [place] 1.015 Urine Protein Negativemg/dL (NEG-TRACE) Urine Glucose (UA) Negativemg/dL (NEG) Urine Ketones (Stick) Negativemg/dL (NEG) Urine Blood Negative (NEG) Urine Nitrite Negative (NEG) Urine Bilirubin Negative (NEG) Urine Urobilinogen Dipstick 0.2mg/dL (0.2 mg/dL) Urine Leukocyte Esterase Negative (NEG) Urine RBC Occ/HPF (0-2) Urine WBC Occ/HPF (0-4) Urine Squamous Epithelial Cells Occ/LPF Urine Bacteria 0/HPF (0-FEW) Urine Opiates Screen Neg (NEG) Urine Methadone Screen Neg (NEG) Urine Barbiturates Neg (NEG) Urine Phencyclidine Screen Neg (NEG) Urine Amphetamine/Methamphetamine Neg (NEG) Urine Benzodiazepines Screen Neg (NEG) Urine Cocaine Screen Neg (NEG) Urine Cannabinoids Screen Neg (NEG) Urine Ethyl Alcohol Neg (NEG) White Blood Count 7.6x10^3/uL (4.0-11.0) 4.8x10^3/uL (4.0-11.0) Red Blood Count 4.79x10^6/uL (4.30-5.70) 4.50x10^6/uL (4.30-5.70) Hemoglobin 14.7g/dL (13.0-17.5) 13.6g/dL (13.0-17.5) Hematocrit 44.4% (39.0-53.0) 41.1% (39.0-53.0) Mean Corpuscular Volume 93fL (79-100) 91fL (79-100) Mean Corpuscular Hemoglobin 31pg (25-35) 30pg (25-35) Mean Corpuscular Hemoglobin Concent 33g/dL (31-37) 33g/dL (31-37) Red Cell Distribution Width 13.7% (11.5-14.5) 13.7% (11.5-14.5) Platelet Count 116x10^3/uL (140-400) 106x10^3/uL (140-400) Neutrophils (%) (Auto) 80% (31-73) 57% (31-73) Lymphocytes (%) (Auto) 11% (24-48) 30% (24-48) Monocytes (%) (Auto) 7% (0-9) 9% (0-9) Eosinophils (%) (Auto) 1% (0-3) 3% (0-3) Basophils (%) (Auto) 1% (0-3) 1% (0-3) Neutrophils # (Auto) 6.1x10^3uL (1.8-7.7) 2.7x10^3uL (1.8-7.7) Lymphocytes # (Auto) 0.9x10^3/uL (1.0-4.8) 1.4x10^3/uL (1.0-4.8) Monocytes # (Auto) 0.5x10^3/uL (0.0-1.1) 0.4x10^3/uL (0.0-1.1) Eosinophils # (Auto) 0.1x10^3/uL (0.0-0.7) 0.1x10^3/uL (0.0-0.7) Basophils # (Auto) 0.0x10^3/uL (0.0-0.2) 0.0x10^3/uL (0.0-0.2) Prothrombin Time 13.4SEC (11.7-14.0) Prothromb Time International Ratio 1.1 (0.8-1.1) Activated Partial Thromboplast Time 29SEC (24-38) Sodium Level 140mmol/L (136-145) 142mmol/L (136-145) Potassium Level 4.4mmol/L (3.5-5.1) 3.8mmol/L (3.5-5.1) Chloride Level 102mmol/L (98-107) 106mmol/L (98-107) Carbon Dioxide Level 30mmol/L (21-32) 29mmol/L (21-32) Anion Gap 8 (6-14) 7 (6-14) Blood Urea Nitrogen 13mg/dL (8-26) 12mg/dL (8-26) Creatinine 1.0mg/dL (0.7-1.3) 1.0mg/dL (0.7-1.3) Estimated GFR (Cockcroft-Gault) 72.1 72.1 Glucose Level 102mg/dL (70-99) 86mg/dL (70-99) Calcium Level 9.7mg/dL (8.5-10.1) 8.9mg/dL (8.5-10.1) Total Bilirubin 0.6mg/dL (0.2-1.0) Direct Bilirubin 0.1mg/dL (0.0-0.2) Aspartate Amino Transf (AST/SGOT) 15U/L (15-37) Alanine Aminotransferase (ALT/SGPT) 23U/L (16-63) Alkaline Phosphatase 66U/L (46-116) Troponin I Quantitative < 0.017ng/mL (0.000-0.055) RN-Eht-X-Type Natriuretic Peptide 456pg/mL (0-449) Total Protein 6.8g/dL (6.4-8.2) Albumin 3.6g/dL (3.4-5.0) Review of Systems Review of Systems no headache, mild lefts ided weaknesss, no n.v.d Assessment and Plan Assessmemt and Plan Problems Medical Problems: (1) Brain mass Status: Acute (2) CAD (coronary artery disease) Status: Acute (3) Weakness Status: Acute Problems: Comment Review of Relevant I have reviewed the following items erika (where applicable) has been applied. Labs Laboratory Tests Test 01/23/17 16:35 01/23/17 16:53 01/24/17 04:00 Urine Collection Type Unknown Urine Color Yellow Urine Clarity Clear Urine pH 6.0 Urine Specific [place] 1.015 Urine Protein Negativemg/dL (NEG-TRACE) Urine Glucose (UA) Negativemg/dL (NEG) Urine Ketones (Stick) Negativemg/dL (NEG) Urine Blood Negative (NEG) Urine Nitrite Negative (NEG) Urine Bilirubin Negative (NEG) Urine Urobilinogen Dipstick 0.2mg/dL (0.2 mg/dL) Urine Leukocyte Esterase Negative (NEG) Urine RBC Occ/HPF (0-2) Urine WBC Occ/HPF (0-4) Urine Squamous Epithelial Cells Occ/LPF Urine Bacteria 0/HPF (0-FEW) Urine Opiates Screen Neg (NEG) Urine Methadone Screen Neg (NEG) Urine Barbiturates Neg (NEG) Urine Phencyclidine Screen Neg (NEG) Urine Amphetamine/Methamphetamine Neg (NEG) Urine Benzodiazepines Screen Neg (NEG) Urine Cocaine Screen Neg (NEG) Urine Cannabinoids Screen Neg (NEG) Urine Ethyl Alcohol Neg (NEG) White Blood Count 7.6x10^3/uL (4.0-11.0) 4.8x10^3/uL (4.0-11.0) Red Blood Count 4.79x10^6/uL (4.30-5.70) 4.50x10^6/uL (4.30-5.70) Hemoglobin 14.7g/dL (13.0-17.5) 13.6g/dL (13.0-17.5) Hematocrit 44.4% (39.0-53.0) 41.1% (39.0-53.0) Mean Corpuscular Volume 93fL (79-100) 91fL (79-100) Mean Corpuscular Hemoglobin 31pg (25-35) 30pg (25-35) Mean Corpuscular Hemoglobin Concent 33g/dL (31-37) 33g/dL (31-37) Red Cell Distribution Width 13.7% (11.5-14.5) 13.7% (11.5-14.5) Platelet Count 116x10^3/uL (140-400) 106x10^3/uL (140-400) Neutrophils (%) (Auto) 80% (31-73) 57% (31-73) Lymphocytes (%) (Auto) 11% (24-48) 30% (24-48) Monocytes (%) (Auto) 7% (0-9) 9% (0-9) Eosinophils (%) (Auto) 1% (0-3) 3% (0-3) Basophils (%) (Auto) 1% (0-3) 1% (0-3) Neutrophils # (Auto) 6.1x10^3uL (1.8-7.7) 2.7x10^3uL (1.8-7.7) Lymphocytes # (Auto) 0.9x10^3/uL (1.0-4.8) 1.4x10^3/uL (1.0-4.8) Monocytes # (Auto) 0.5x10^3/uL (0.0-1.1) 0.4x10^3/uL (0.0-1.1) Eosinophils # (Auto) 0.1x10^3/uL (0.0-0.7) 0.1x10^3/uL (0.0-0.7) Basophils # (Auto) 0.0x10^3/uL (0.0-0.2) 0.0x10^3/uL (0.0-0.2) Prothrombin Time 13.4SEC (11.7-14.0) Prothromb Time International Ratio 1.1 (0.8-1.1) Activated Partial Thromboplast Time 29SEC (24-38) Sodium Level 140mmol/L (136-145) 142mmol/L (136-145) Potassium Level 4.4mmol/L (3.5-5.1) 3.8mmol/L (3.5-5.1) Chloride Level 102mmol/L (98-107) 106mmol/L (98-107) Carbon Dioxide Level 30mmol/L (21-32) 29mmol/L (21-32) Anion Gap 8 (6-14) 7 (6-14) Blood Urea Nitrogen 13mg/dL (8-26) 12mg/dL (8-26) Creatinine 1.0mg/dL (0.7-1.3) 1.0mg/dL (0.7-1.3) Estimated GFR (Cockcroft-Gault) 72.1 72.1 Glucose Level 102mg/dL (70-99) 86mg/dL (70-99) Calcium Level 9.7mg/dL (8.5-10.1) 8.9mg/dL (8.5-10.1) Total Bilirubin 0.6mg/dL (0.2-1.0) Direct Bilirubin 0.1mg/dL (0.0-0.2) Aspartate Amino Transf (AST/SGOT) 15U/L (15-37) Alanine Aminotransferase (ALT/SGPT) 23U/L (16-63) Alkaline Phosphatase 66U/L (46-116) Troponin I Quantitative < 0.017ng/mL (0.000-0.055) GC-Kal-R-Type Natriuretic Peptide 456pg/mL (0-449) Total Protein 6.8g/dL (6.4-8.2) Albumin 3.6g/dL (3.4-5.0) Laboratory Tests Test 01/23/17 16:35 01/23/17 16:53 01/24/17 04:00 Urine Collection Type Unknown Urine Color Yellow Urine Clarity Clear Urine pH 6.0 Urine Specific [place] 1.015 Urine Protein Negativemg/dL (NEG-TRACE) Urine Glucose (UA) Negativemg/dL (NEG) Urine Ketones (Stick) Negativemg/dL (NEG) Urine Blood Negative (NEG) Urine Nitrite Negative (NEG) Urine Bilirubin Negative (NEG) Urine Urobilinogen Dipstick 0.2mg/dL (0.2 mg/dL) Urine Leukocyte Esterase Negative (NEG) Urine RBC Occ/HPF (0-2) Urine WBC Occ/HPF (0-4) Urine Squamous Epithelial Cells Occ/LPF Urine Bacteria 0/HPF (0-FEW) Urine Opiates Screen Neg (NEG) Urine Methadone Screen Neg (NEG) Urine Barbiturates Neg (NEG) Urine Phencyclidine Screen Neg (NEG) Urine Amphetamine/Methamphetamine Neg (NEG) Urine Benzodiazepines Screen Neg (NEG) Urine Cocaine Screen Neg (NEG) Urine Cannabinoids Screen Neg (NEG) Urine Ethyl Alcohol Neg (NEG) White Blood Count 7.6x10^3/uL (4.0-11.0) 4.8x10^3/uL (4.0-11.0) Red Blood Count 4.79x10^6/uL (4.30-5.70) 4.50x10^6/uL (4.30-5.70) Hemoglobin 14.7g/dL (13.0-17.5) 13.6g/dL (13.0-17.5) Hematocrit 44.4% (39.0-53.0) 41.1% (39.0-53.0) Mean Corpuscular Volume 93fL (79-100) 91fL (79-100) Mean Corpuscular Hemoglobin 31pg (25-35) 30pg (25-35) Mean Corpuscular Hemoglobin Concent 33g/dL (31-37) 33g/dL (31-37) Red Cell Distribution Width 13.7% (11.5-14.5) 13.7% (11.5-14.5) Platelet Count 116x10^3/uL (140-400) 106x10^3/uL (140-400) Neutrophils (%) (Auto) 80% (31-73) 57% (31-73) Lymphocytes (%) (Auto) 11% (24-48) 30% (24-48) Monocytes (%) (Auto) 7% (0-9) 9% (0-9) Eosinophils (%) (Auto) 1% (0-3) 3% (0-3) Basophils (%) (Auto) 1% (0-3) 1% (0-3) Neutrophils # (Auto) 6.1x10^3uL (1.8-7.7) 2.7x10^3uL (1.8-7.7) Lymphocytes # (Auto) 0.9x10^3/uL (1.0-4.8) 1.4x10^3/uL (1.0-4.8) Monocytes # (Auto) 0.5x10^3/uL (0.0-1.1) 0.4x10^3/uL (0.0-1.1) Eosinophils # (Auto) 0.1x10^3/uL (0.0-0.7) 0.1x10^3/uL (0.0-0.7) Basophils # (Auto) 0.0x10^3/uL (0.0-0.2) 0.0x10^3/uL (0.0-0.2) Prothrombin Time 13.4SEC (11.7-14.0) Prothromb Time International Ratio 1.1 (0.8-1.1) Activated Partial Thromboplast Time 29SEC (24-38) Sodium Level 140mmol/L (136-145) 142mmol/L (136-145) Potassium Level 4.4mmol/L (3.5-5.1) 3.8mmol/L (3.5-5.1) Chloride Level 102mmol/L (98-107) 106mmol/L (98-107) Carbon Dioxide Level 30mmol/L (21-32) 29mmol/L (21-32) Anion Gap 8 (6-14) 7 (6-14) Blood Urea Nitrogen 13mg/dL (8-26) 12mg/dL (8-26) Creatinine 1.0mg/dL (0.7-1.3) 1.0mg/dL (0.7-1.3) Estimated GFR (Cockcroft-Gault) 72.1 72.1 Glucose Level 102mg/dL (70-99) 86mg/dL (70-99) Calcium Level 9.7mg/dL (8.5-10.1) 8.9mg/dL (8.5-10.1) Total Bilirubin 0.6mg/dL (0.2-1.0) Direct Bilirubin 0.1mg/dL (0.0-0.2) Aspartate Amino Transf (AST/SGOT) 15U/L (15-37) Alanine Aminotransferase (ALT/SGPT) 23U/L (16-63) Alkaline Phosphatase 66U/L (46-116) Troponin I Quantitative < 0.017ng/mL (0.000-0.055) WS-Ogl-Z-Type Natriuretic Peptide 456pg/mL (0-449) Total Protein 6.8g/dL (6.4-8.2) Albumin 3.6g/dL (3.4-5.0) Medications Current Medications Ondansetron HCl (Zofran) 4 mg PRN Q8HRS PRN IV NAUSEA/VOMITING; Start 01/23/17 at 18:30; Stop 01/23/17 at 19:03; Status DC Carvedilol (Coreg) 3.125 mg BIDWMEALS PO Last administered on 01/24/17 09:42; Start 01/23/17 at 19:00 Clopidogrel Bisulfate (Plavix) 75 mg DAILYWBKFT PO Last administered on 08:14; Start 01/24/17 at 08:00 Guaifenesin (Robitussin Dm) 10 ml PRN Q6HRS PRN PO COUGH; Start 01/23/17 at 19: 00 Albuterol/ Ipratropium (Duoneb) 3 ml RTQID NEB Last administered on 01/24/17 12 :01; Start 01/23/17 at 20:00 Levothyroxine Sodium (Synthroid) 112 mcg DAILYAC PO Last administered on 08:14; Start 01/24/17 at 07:30 Lisinopril (Prinivil) 20 mg DAILY PO Last administered on 01/24/17 08:15; Start 01/24/17 at 09:00 Nitroglycerin (Nitrostat) 0.4 mg PRN Q5MIN PRN SL CHEST PAIN; Start 01/23/17 at 19:00 Ranolazine (Ranexa) 500 mg BID PO Last administered on 01/24/17 08:14; Start at 21:00 Simvastatin (Zocor) 20 mg HS PO Last administered on 01/23/17 21:13; Start 01/23 at 21:00 Pantoprazole Sodium (Protonix) 40 mg DAILYAC PO Last administered on 01/24/17 08:14; Start 01/24/17 at 07:30 Acetaminophen (Tylenol) 650 mg PRN Q6HRS PRN PO FEVER Last administered on 00:27; Start 01/23/17 at 19:00 Ondansetron HCl (Zofran) 4 mg PRN Q6HRS PRN IV NAUSEA/VOMITING; Start 01/23/17 at 19:00 Hydralazine HCl (Apresoline) 10 mg PRN Q4HRS PRN IVP ELEVATED BP, SEE COMMENTS ; Start 01/23/17 at 19:00 Enoxaparin Sodium (Lovenox 40mg Syringe) 40 mg Q24H SQ Last administered on 01/23 21:14; Start 01/23/17 at 21:00 Senna/Docusate Sodium (Senna Plus) 1 tab BID PO Last administered on 01/24/17 08:14; Start 01/23/17 at 21:00 Docusate Sodium (Colace) 100 mg BID PO Last administered on 01/24/17 08:14; Start 01/23/17 at 21:00 Magnesium Hydroxide (Milk Of Magnesia) 2,400 mg PRN Q12HR PRN PO CONSTIPATION; Start 01/23/17 at 19:15 Gadobutrol (Gadavist) 7 mmol 1X ONCE IV Last administered on 01/24/17 11:23; Start 01/24/17 at 11:15; Stop 01/24/17 at 11:16; Status DC Dexamethasone Sodium Phosphate (Decadron) 4 mg Q6HRS IV ; Start 01/24/17 at 12:30 Active Scripts Active Duoneb 0.5-3(2.5) Mg/3 Ml (Albuterol/Ipratropium) 3 Ml Ampul.neb 3 Ml NEB RTQID Guaifenesin Dm Syrup (Guaifenesin/Dextromethorphan) 5 Ml Syrup 10 Ml PO PRN Q6HRS PRN Nitrostat (Nitroglycerin) 0.4 Mg Tab.subl 0.4 Mg SL PRN Q5MIN PRN Ranexa (Ranolazine) 500 Mg Tab.er.12h 500 Mg PO BID Reported Mucinex (Guaifenesin) 600 Mg Tablet.er 1 Tab PO BID Tamsulosin Hcl 0.4 Mg Cap.er.24h 0.4 Mg PO DAILY Meclizine Hcl 25 Mg Tablet 1 Tab PO PRN TID Multi-Day Vitamins (Multivitamin) 1 Each Tablet 1 Tab PO DAILY Lansoprazole 30 Mg Capsule.dr 1 Cap PO DAILY Clopidogrel (Clopidogrel Bisulfate) 75 Mg Tablet 1 Tab PO DAILY Prinivil (Lisinopril) 20 Mg Tablet 1 Tab PO DAILY [herlax] not given as hospital, may resume as directed Calcium 500 + D Tablet (Calcium Carbonate/Vitamin D3) 1 Each Tablet 1 Each PO DAILY medication was not given at hospital, may resume as directed Vitamin E (Vitamin E Mixed) 400 Unit Tablet 400 Unit PO DAILY medication not given at hospital, may resume as directed. Vitamin C (Ascorbic Acid) 500 Mg Capsule.er 500 Mg PO DAILY medication was not given at hospital, may resume as directed Glucosamine (Glucosamine Sulfate 2KCL) 1,000 Mg Tablet 1,000 Mg PO DAILY medication not given at hospital, may resume as directed Levothyroxine Sodium 112 Mcg Tablet 112 Mcg PO DAILYAC medication not given at hospital, may resume as directed Carvedilol 3.125 Mg Tablet 1 Tab PO BID LAST DOSE GIVEN: DATE:11/13/15 TIME:9:00 a.m. NEXT DOSE DUE: DATE:11/13/15 TIME:6:00 p.m. Simvastatin 20 Mg Tablet 20 Mg PO HS LAST DOSE GIVEN: DATE:11/12/15 TIME:9:00 p.m. NEXT DOSE DUE: DATE:11/13/15 TIME:9:00 p.m. Fina Allergy (Fexofenadine Hcl) 180 Mg Tablet 1 Tab PO DAILY medication not given at hospital, may resume as directed Vitals/I & O Vital Sign - Last 24 Hours 01/23/17 01/23/17 01/23/17 01/23/17 16:27 17:27 18:24 19:02 Temp 97.9 97.9 Pulse 66 80 80 88 Resp 20 16 23 B/P 175/77 165/77 179/76 161/79 Pulse Ox 97 98 98 97 O2 Delivery Room Air Room Air Room Air 01/23/17 01/23/17 01/23/17 01/23/17 19:32 20:00 20:31 20:39 Temp 98.4 98.4 Pulse 88 61 Resp 29 20 B/P 178/79 158/80 Pulse Ox 97 98 O2 Delivery Room Air Room Air Room Air Room Air 01/23/17 01/23/17 01/23/17 01/24/17 21:13 21:13 23:00 03:00 Temp 97.8 97.5 97.8 97.5 Pulse 61 97 78 62 Resp 19 20 B/P 158/80 158/80 158/68 138/70 Pulse Ox 96 O2 Delivery Room Air Room Air 01/24/17 01/24/17 01/24/17 01/24/17 07:50 07:59 08:00 08:14 Temp 97.8 97.8 Pulse 60 61 Resp 18 B/P 105/75 105/75 Pulse Ox 98 97 O2 Delivery Room Air Room Air Room Air 01/24/17 01/24/17 01/24/17 01/24/17 08:15 09:42 11:00 12:00 Temp 97.8 97.8 Pulse 61 75 63 Resp 18 B/P 105/75 137/66 145/64 Pulse Ox 99 100 O2 Delivery Room Air Room Air Intake and Output 01/23/17 01/23/17 01/24/17 15:00 23:00 07:00 Output Total 500 ml 800 ml Balance -500 ml -800 ml BE POST MD Jan 24, 2017 12:50
[2017-01-24] MEDS ORDERED: IOHEXOL 300 MG/ML 75 ML VIAL IV ONE (13:00)
[2017-01-24] MEDS ORDERED: IOHEXOL 240 MG/ML 50ML VIAL. PO ONE (13:00)
[2017-01-24] MEDS: DEXAMETHASONE SOD PHOS 4 MG/ML VIAL IV SCH ×3 (13:07→23:06)
[2017-01-24] MEDS ORDERED: CONTRAST GIVEN MC PRN (13:15)
--- NOTE | 2017-01-24 13:41 | RAD ---
MRI study of the brain with and without contrast Clinical indications: Vertigo with a fall. Left-sided weakness. Unsteady gait for one day. Right frontal mass seen on recent CT. Technique: Pre and postcontrast enhanced MRI sequences of the brain were performed. A total of 7 mL of Gadavist was given intravenously. Comparison: February 02, 2014 MRI study of the brain and head CT dated January 23, 2017. Findings: There is a large area of restricted diffusion of the anterior right parietal lobe which corresponds to a mass. No other area of restricted diffusion is seen. This mass is increased in signal on the T2-weighted images and decreased in signal on the T1-weighted images. This mass measures 4.2 cm in AP dimension and 3.8 cm in transverse dimension and 4.5 cm in vertical dimension. This mass extends to the midline and the falx cerebri. There is homogeneous enhancement of the mass and enhancement of the adjacent falx. However, this does not demonstrate typical signal characteristics of a meningioma and was not present previously. The mass lesion is contiguous with and depresses the corpus callosum. No hemorrhage is seen within the mass. No other intracranial contrast enhancing lesion or mass lesion is seen. No other intracranial hemorrhage is evident. Normal vascular flow signal voids are seen. Mild bilateral periventricular white matter hyperintensities are seen consistent with chronic small vessel ischemic disease in this age group. No cerebellar tonsillar ectopia or pituitary mass is seen. No opacification of the paranasal sinuses is seen. There is a mucous retention cyst of the floor of the right maxillary sinus. There is opacification of the right mastoid sinus. The orbits are symmetric. Internal auditory canals are symmetric and no cerebellopontine angle mass is seen. 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 This is contiguous with the falx. However, this does not demonstrate signal characteristics typical of a meningioma and this was not seen previously. There is some mild peritumoral white matter edema. There is mild midline shift from right to left of 4 mm with mild effacement of the upper body of the right lateral ventricle. However no hydrocephalus is seen. Restricted diffusion is seen within this mass. Restricted diffusion may be seen within an abscess but this does not demonstrate the typical MRI findings of an abscess since it enhances homogeneously. Other possibilities include small cell tumors like lymphoma or small cell metastatic disease. Given the solitary nature of this mass, a primary glioblastoma is a consideration as well. Chronic small vessel ischemic disease of the periventricular white matter without significant progression from the previous MRI study. There is opacification of right mastoid sinus on MRI but not on the CT the day before. Therefore this may represent mucosal thickening rather than true complete opacification of the right mastoid sinus.
[2017-01-24 14:46] VITALS: BP 114/65
--- NOTE | 2017-01-24 15:46 | PDOC2 ---
NEUROLOGY CONSULT Date of Admission Date of Admission DATE: 01/24/17 TIME: 15:38 Reason for Consult Reason for Consult: Brain mass Referring Physician Referring Physician: Dr. Clifford PCP: Dr. East Source Source: Chart review, Patient History of Present Illness History of Present Illness The patient is a 81-year-old right-handed male who may have noticed some left- sided weakness for as long as a year. He remembers that he had it when he was here 2 months ago for influenza. Today he was mowing the lawn and became much weaker. For the past week or 2 he has had some twitching of the left leg. He denies any headaches, history of strokes, or head injuries. He has had some twitching movements of the left leg. His describes a long history of dream enactment. He also has a long history of vertigo Past Medical History Cardiovascular: CAD, HTN, Hyperlipidemia, Other (peripheral vascular disease) Pulmonary: Pneumonia CENTRAL NERVOUS SYSTEM: Vertigo GI: GERD Musculoskeletal: low back pain, Other (clavicle fracture) Rheumatologic: Other (Raynaud's) Renal/: Benign prostatic enlarg. Endocrine: Hypothyroidism Past Surgical History Past Surgical History: Cataract Removal, Other (right foot fracture, hardware, right shoulder) Family History Family History: Cancer Social History Social History , nonsmoker, nondrinker Current Medications Current Medications Current Medications Ondansetron HCl (Zofran) 4 mg PRN Q8HRS PRN IV NAUSEA/VOMITING; Start 01/23/17 at 18:30; Stop 01/23/17 at 19:03; Status DC Carvedilol (Coreg) 3.125 mg BIDWMEALS PO Last administered on 01/24/17 09:42; Start 01/23/17 at 19:00 Clopidogrel Bisulfate (Plavix) 75 mg DAILYWBKFT PO Last administered on 08:14; Start 01/24/17 at 08:00 Guaifenesin (Robitussin Dm) 10 ml PRN Q6HRS PRN PO COUGH; Start 01/23/17 at 19: 00 Albuterol/ Ipratropium (Duoneb) 3 ml RTQID NEB Last administered on 01/24/17 12 :01; Start 01/23/17 at 20:00 Levothyroxine Sodium (Synthroid) 112 mcg DAILYAC PO Last administered on 08:14; Start 01/24/17 at 07:30 Lisinopril (Prinivil) 20 mg DAILY PO Last administered on 01/24/17 08:15; Start 01/24/17 at 09:00 Nitroglycerin (Nitrostat) 0.4 mg PRN Q5MIN PRN SL CHEST PAIN; Start 01/23/17 at 19:00 Ranolazine (Ranexa) 500 mg BID PO Last administered on 01/24/17 08:14; Start at 21:00 Simvastatin (Zocor) 20 mg HS PO Last administered on 01/23/17 21:13; Start 01/23 at 21:00 Pantoprazole Sodium (Protonix) 40 mg DAILYAC PO Last administered on 01/24/17 08:14; Start 01/24/17 at 07:30 Acetaminophen (Tylenol) 650 mg PRN Q6HRS PRN PO FEVER Last administered on 00:27; Start 01/23/17 at 19:00 Ondansetron HCl (Zofran) 4 mg PRN Q6HRS PRN IV NAUSEA/VOMITING; Start 01/23/17 at 19:00 Hydralazine HCl (Apresoline) 10 mg PRN Q4HRS PRN IVP ELEVATED BP, SEE COMMENTS ; Start 01/23/17 at 19:00 Enoxaparin Sodium (Lovenox 40mg Syringe) 40 mg Q24H SQ Last administered on 01/23 21:14; Start 01/23/17 at 21:00 Senna/Docusate Sodium (Senna Plus) 1 tab BID PO Last administered on 01/24/17 08:14; Start 01/23/17 at 21:00 Docusate Sodium (Colace) 100 mg BID PO Last administered on 01/24/17 08:14; Start 01/23/17 at 21:00 Magnesium Hydroxide (Milk Of Magnesia) 2,400 mg PRN Q12HR PRN PO CONSTIPATION; Start 01/23/17 at 19:15 Gadobutrol (Gadavist) 7 mmol 1X ONCE IV Last administered on 01/24/17 11:23; Start 01/24/17 at 11:15; Stop 01/24/17 at 11:16; Status DC Dexamethasone Sodium Phosphate (Decadron) 4 mg Q6HRS IV Last administered on t 13:07; Start 01/24/17 at 12:30 Iohexol (Omnipaque 300 Mg/ml) 75 ml 1X ONCE IV ; Start 01/24/17 at 13:00; Stop 01/24/17 at 13:02; Status DC Iohexol (Omnipaque 240 Mg/ml) 50 ml 1X ONCE PO ; Start 01/24/17 at 13:00; Stop 01/24/17 at 13:02; Status DC Info (Do NOT chart on this entry -- for MONITORING) 1 each PRN DAILY PRN MC SEE COMMENTS; Start 01/24/17 at 13:15; Stop 01/26/17 at 13:14 Active Scripts Active Duoneb 0.5-3(2.5) Mg/3 Ml (Albuterol/Ipratropium) 3 Ml Ampul.neb 3 Ml NEB RTQID Guaifenesin Dm Syrup (Guaifenesin/Dextromethorphan) 5 Ml Syrup 10 Ml PO PRN Q6HRS PRN Nitrostat (Nitroglycerin) 0.4 Mg Tab.subl 0.4 Mg SL PRN Q5MIN PRN Ranexa (Ranolazine) 500 Mg Tab.er.12h 500 Mg PO BID Reported Mucinex (Guaifenesin) 600 Mg Tablet.er 1 Tab PO BID Tamsulosin Hcl 0.4 Mg Cap.er.24h 0.4 Mg PO DAILY Meclizine Hcl 25 Mg Tablet 1 Tab PO PRN TID Multi-Day Vitamins (Multivitamin) 1 Each Tablet 1 Tab PO DAILY Lansoprazole 30 Mg Capsule.dr 1 Cap PO DAILY Clopidogrel (Clopidogrel Bisulfate) 75 Mg Tablet 1 Tab PO DAILY Prinivil (Lisinopril) 20 Mg Tablet 1 Tab PO DAILY [herlax] not given as hospital, may resume as directed Calcium 500 + D Tablet (Calcium Carbonate/Vitamin D3) 1 Each Tablet 1 Each PO DAILY medication was not given at hospital, may resume as directed Vitamin E (Vitamin E Mixed) 400 Unit Tablet 400 Unit PO DAILY medication not given at hospital, may resume as directed. Vitamin C (Ascorbic Acid) 500 Mg Capsule.er 500 Mg PO DAILY medication was not given at hospital, may resume as directed Glucosamine (Glucosamine Sulfate 2KCL) 1,000 Mg Tablet 1,000 Mg PO DAILY medication not given at hospital, may resume as directed Levothyroxine Sodium 112 Mcg Tablet 112 Mcg PO DAILYAC medication not given at hospital, may resume as directed Carvedilol 3.125 Mg Tablet 1 Tab PO BID LAST DOSE GIVEN: DATE:11/13/15 TIME:9:00 a.m. NEXT DOSE DUE: DATE:11/13/15 TIME:6:00 p.m. Simvastatin 20 Mg Tablet 20 Mg PO HS LAST DOSE GIVEN: DATE:11/12/15 TIME:9:00 p.m. NEXT DOSE DUE: DATE:11/13/15 TIME:9:00 p.m. Fina Allergy (Fexofenadine Hcl) 180 Mg Tablet 1 Tab PO DAILY medication not given at hospital, may resume as directed Allergies Allergies: Coded Allergies: No Known Drug Allergies (Unverified , 08/16/14) ROS Review of System Patient denies fevers, chills, weight loss, dyspnea, angina, abdominal pain, change in bowels, or dysuria. 14 point review of systems is negative. Physical Exam Physical Examination PHYSICAL EXAMINATION: Vital signs: see above. General appearance is normal and in no acute distress. HEENT: Normocephalic and nontraumatic. Eyes, nose, ears, and throat are unremarkable. Neck is supple. No lymphadenopathy. No bruits are heard over the carotid artery. No crepitus. Mental Status Examination: Alert. Oriented to time, place, and person. Answers questions and follows commends. Pupils are equal round and reactive to light and accommodation. Funduscopic exam: No papilledema. Extraocular movements are intact. Visual field exam shows no defect on the direct confrontation. No motor or sensory deficits on the facial exam. Uvula in the midline and the soft palate elevated symmetrically. No deviation of the tongue to any direction. Gross hearing is normal. Shoulder shrug normal. Muscle tone is normal. Muscle strength is 5-/5 on left. Deep tendon reflexes are 2+ all around. Plantar reflex is with flexion response bilaterally. [id number]-ap-olwg test performance is accurate. Tandem walk test is accurate. Alternative movements are accurate. Romberg test is negative. Gait is normal. Sensory exam shows no deficits. No cerebellar signs are elicited. Vitals VITALS Vital Signs Date Time Temp Pulse Resp B/P Pulse Ox O2 Delivery O2 Flow Rate FiO2 01/24/17 14:46 97.8 62 20 114/65 94 Room Air 97.8 Labs Labs Laboratory Tests Test 01/23/17 16:35 01/23/17 16:53 01/24/17 04:00 Urine Collection Type Unknown Urine Color Yellow Urine Clarity Clear Urine pH 6.0 Urine Specific [place] 1.015 Urine Protein Negativemg/dL (NEG-TRACE) Urine Glucose (UA) Negativemg/dL (NEG) Urine Ketones (Stick) Negativemg/dL (NEG) Urine Blood Negative (NEG) Urine Nitrite Negative (NEG) Urine Bilirubin Negative (NEG) Urine Urobilinogen Dipstick 0.2mg/dL (0.2 mg/dL) Urine Leukocyte Esterase Negative (NEG) Urine RBC Occ/HPF (0-2) Urine WBC Occ/HPF (0-4) Urine Squamous Epithelial Cells Occ/LPF Urine Bacteria 0/HPF (0-FEW) Urine Opiates Screen Neg (NEG) Urine Methadone Screen Neg (NEG) Urine Barbiturates Neg (NEG) Urine Phencyclidine Screen Neg (NEG) Urine Amphetamine/Methamphetamine Neg (NEG) Urine Benzodiazepines Screen Neg (NEG) Urine Cocaine Screen Neg (NEG) Urine Cannabinoids Screen Neg (NEG) Urine Ethyl Alcohol Neg (NEG) White Blood Count 7.6x10^3/uL (4.0-11.0) 4.8x10^3/uL (4.0-11.0) Red Blood Count 4.79x10^6/uL (4.30-5.70) 4.50x10^6/uL (4.30-5.70) Hemoglobin 14.7g/dL (13.0-17.5) 13.6g/dL (13.0-17.5) Hematocrit 44.4% (39.0-53.0) 41.1% (39.0-53.0) Mean Corpuscular Volume 93fL (79-100) 91fL (79-100) Mean Corpuscular Hemoglobin 31pg (25-35) 30pg (25-35) Mean Corpuscular Hemoglobin Concent 33g/dL (31-37) 33g/dL (31-37) Red Cell Distribution Width 13.7% (11.5-14.5) 13.7% (11.5-14.5) Platelet Count 116x10^3/uL (140-400) 106x10^3/uL (140-400) Neutrophils (%) (Auto) 80% (31-73) 57% (31-73) Lymphocytes (%) (Auto) 11% (24-48) 30% (24-48) Monocytes (%) (Auto) 7% (0-9) 9% (0-9) Eosinophils (%) (Auto) 1% (0-3) 3% (0-3) Basophils (%) (Auto) 1% (0-3) 1% (0-3) Neutrophils # (Auto) 6.1x10^3uL (1.8-7.7) 2.7x10^3uL (1.8-7.7) Lymphocytes # (Auto) 0.9x10^3/uL (1.0-4.8) 1.4x10^3/uL (1.0-4.8) Monocytes # (Auto) 0.5x10^3/uL (0.0-1.1) 0.4x10^3/uL (0.0-1.1) Eosinophils # (Auto) 0.1x10^3/uL (0.0-0.7) 0.1x10^3/uL (0.0-0.7) Basophils # (Auto) 0.0x10^3/uL (0.0-0.2) 0.0x10^3/uL (0.0-0.2) Prothrombin Time 13.4SEC (11.7-14.0) Prothromb Time International Ratio 1.1 (0.8-1.1) Activated Partial Thromboplast Time 29SEC (24-38) Sodium Level 140mmol/L (136-145) 142mmol/L (136-145) Potassium Level 4.4mmol/L (3.5-5.1) 3.8mmol/L (3.5-5.1) Chloride Level 102mmol/L (98-107) 106mmol/L (98-107) Carbon Dioxide Level 30mmol/L (21-32) 29mmol/L (21-32) Anion Gap 8 (6-14) 7 (6-14) Blood Urea Nitrogen 13mg/dL (8-26) 12mg/dL (8-26) Creatinine 1.0mg/dL (0.7-1.3) 1.0mg/dL (0.7-1.3) Estimated GFR (Cockcroft-Gault) 72.1 72.1 Glucose Level 102mg/dL (70-99) 86mg/dL (70-99) Calcium Level 9.7mg/dL (8.5-10.1) 8.9mg/dL (8.5-10.1) Total Bilirubin 0.6mg/dL (0.2-1.0) Direct Bilirubin 0.1mg/dL (0.0-0.2) Aspartate Amino Transf (AST/SGOT) 15U/L (15-37) Alanine Aminotransferase (ALT/SGPT) 23U/L (16-63) Alkaline Phosphatase 66U/L (46-116) Troponin I Quantitative < 0.017ng/mL (0.000-0.055) MB-Cba-D-Type Natriuretic Peptide 456pg/mL (0-449) Total Protein 6.8g/dL (6.4-8.2) Albumin 3.6g/dL (3.4-5.0) Laboratory Tests Test 01/23/17 16:35 01/23/17 16:53 01/24/17 04:00 Urine Collection Type Unknown Urine Color Yellow Urine Clarity Clear Urine pH 6.0 Urine Specific [place] 1.015 Urine Protein Negativemg/dL (NEG-TRACE) Urine Glucose (UA) Negativemg/dL (NEG) Urine Ketones (Stick) Negativemg/dL (NEG) Urine Blood Negative (NEG) Urine Nitrite Negative (NEG) Urine Bilirubin Negative (NEG) Urine Urobilinogen Dipstick 0.2mg/dL (0.2 mg/dL) Urine Leukocyte Esterase Negative (NEG) Urine RBC Occ/HPF (0-2) Urine WBC Occ/HPF (0-4) Urine Squamous Epithelial Cells Occ/LPF Urine Bacteria 0/HPF (0-FEW) Urine Opiates Screen Neg (NEG) Urine Methadone Screen Neg (NEG) Urine Barbiturates Neg (NEG) Urine Phencyclidine Screen Neg (NEG) Urine Amphetamine/Methamphetamine Neg (NEG) Urine Benzodiazepines Screen Neg (NEG) Urine Cocaine Screen Neg (NEG) Urine Cannabinoids Screen Neg (NEG) Urine Ethyl Alcohol Neg (NEG) White Blood Count 7.6x10^3/uL (4.0-11.0) 4.8x10^3/uL (4.0-11.0) Red Blood Count 4.79x10^6/uL (4.30-5.70) 4.50x10^6/uL (4.30-5.70) Hemoglobin 14.7g/dL (13.0-17.5) 13.6g/dL (13.0-17.5) Hematocrit 44.4% (39.0-53.0) 41.1% (39.0-53.0) Mean Corpuscular Volume 93fL (79-100) 91fL (79-100) Mean Corpuscular Hemoglobin 31pg (25-35) 30pg (25-35) Mean Corpuscular Hemoglobin Concent 33g/dL (31-37) 33g/dL (31-37) Red Cell Distribution Width 13.7% (11.5-14.5) 13.7% (11.5-14.5) Platelet Count 116x10^3/uL (140-400) 106x10^3/uL (140-400) Neutrophils (%) (Auto) 80% (31-73) 57% (31-73) Lymphocytes (%) (Auto) 11% (24-48) 30% (24-48) Monocytes (%) (Auto) 7% (0-9) 9% (0-9) Eosinophils (%) (Auto) 1% (0-3) 3% (0-3) Basophils (%) (Auto) 1% (0-3) 1% (0-3) Neutrophils # (Auto) 6.1x10^3uL (1.8-7.7) 2.7x10^3uL (1.8-7.7) Lymphocytes # (Auto) 0.9x10^3/uL (1.0-4.8) 1.4x10^3/uL (1.0-4.8) Monocytes # (Auto) 0.5x10^3/uL (0.0-1.1) 0.4x10^3/uL (0.0-1.1) Eosinophils # (Auto) 0.1x10^3/uL (0.0-0.7) 0.1x10^3/uL (0.0-0.7) Basophils # (Auto) 0.0x10^3/uL (0.0-0.2) 0.0x10^3/uL (0.0-0.2) Prothrombin Time 13.4SEC (11.7-14.0) Prothromb Time International Ratio 1.1 (0.8-1.1) Activated Partial Thromboplast Time 29SEC (24-38) Sodium Level 140mmol/L (136-145) 142mmol/L (136-145) Potassium Level 4.4mmol/L (3.5-5.1) 3.8mmol/L (3.5-5.1) Chloride Level 102mmol/L (98-107) 106mmol/L (98-107) Carbon Dioxide Level 30mmol/L (21-32) 29mmol/L (21-32) Anion Gap 8 (6-14) 7 (6-14) Blood Urea Nitrogen 13mg/dL (8-26) 12mg/dL (8-26) Creatinine 1.0mg/dL (0.7-1.3) 1.0mg/dL (0.7-1.3) Estimated GFR (Cockcroft-Gault) 72.1 72.1 Glucose Level 102mg/dL (70-99) 86mg/dL (70-99) Calcium Level 9.7mg/dL (8.5-10.1) 8.9mg/dL (8.5-10.1) Total Bilirubin 0.6mg/dL (0.2-1.0) Direct Bilirubin 0.1mg/dL (0.0-0.2) Aspartate Amino Transf (AST/SGOT) 15U/L (15-37) Alanine Aminotransferase (ALT/SGPT) 23U/L (16-63) Alkaline Phosphatase 66U/L (46-116) Troponin I Quantitative < 0.017ng/mL (0.000-0.055) EY-Oek-L-Type Natriuretic Peptide 456pg/mL (0-449) Total Protein 6.8g/dL (6.4-8.2) Albumin 3.6g/dL (3.4-5.0) Images Images Brain MRI Findings: There is a large area of restricted diffusion of the anterior right parietal lobe which corresponds to a mass. No other area of restricted diffusion is seen. This mass is increased in signal on the T2-weighted images and decreased in signal on the T1-weighted images. This mass measures 4.2 cm in AP dimension and 3.8 cm in transverse dimension and 4.5 cm in vertical dimension. This mass extends to the midline and the falx cerebri. There is homogeneous enhancement of the mass and enhancement of the adjacent falx. However, this does not demonstrate typical signal characteristics of a meningioma and was not present previously. The mass lesion is contiguous with and depresses the corpus callosum. No hemorrhage is seen within the mass. No other intracranial contrast enhancing lesion or mass lesion is seen. No other intracranial hemorrhage is evident. Normal vascular flow signal voids are seen. Mild bilateral periventricular white matter hyperintensities are seen consistent with chronic small vessel ischemic disease in this age group. No cerebellar tonsillar ectopia or pituitary mass is seen. No opacification of the paranasal sinuses is seen. There is a mucous retention cyst of the floor of the right maxillary sinus. There is opacification of the right mastoid sinus. The orbits are symmetric. Internal auditory canals are symmetric and no cerebellopontine angle mass is seen. 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 This is contiguous with the falx. However, this does not demonstrate signal characteristics typical of a meningioma and this was not seen previously. There is some mild peritumoral white matter edema. There is mild midline shift from right to left of 4 mm with mild effacement of the upper body of the right lateral ventricle. However no hydrocephalus is seen. Restricted diffusion is seen within this mass. Restricted diffusion may be seen within an abscess but this does not demonstrate the typical MRI findings of an abscess since it enhances homogeneously. Other possibilities include small cell tumors like lymphoma or small cell metastatic disease. Given the solitary nature of this mass, a primary glioblastoma is a consideration as well. Chronic small vessel ischemic disease of the periventricular white matter without significant progression from the previous MRI study. There is opacification of right mastoid sinus on MRI but not on the CT the day before. Therefore this may represent mucosal thickening rather than true complete opacification of the right mastoid sinus. Assessment/Plan Assessment/Plan Impression: Right frontal brain mass Possible partial seizures involving the left leg Possible REM behavior disorder, not clinically relevant at this time. Recommendations: Await CT of the body Agree with dexamethasone I'm also starting levetiracetam and discussed the side effects with the patient and his . Agree with neurosurgery's plans. Thank you for letting me help with the patient's care. LEATHA KHALIL MD Jan 24, 2017 15:46
[2017-01-24] MEDS: LEVETIRACETAM 500 MG TABLET. PO SCH (17:38)
[2017-01-24] MEDS ORDERED: BENZOCAINE/MENTHOL LOZENGE. PO PRN (18:00)
[2017-01-24 19:00] VITALS: BP 137/68
[2017-01-24] MEDS ORDERED: BISACODYL 5 MG TABLET.DR. PO PRN (20:15)
[2017-01-24] MEDS ORDERED: BISACODYL 10 MG SUPP.RECT. PR PRN (20:15)
[2017-01-24] MEDS: ENOXAPARIN 40 MG/0.4 ML SYRINGE. SQ SCH (21:14)
[2017-01-24] MEDS: SIMVASTATIN 20 MG TABLET PO SCH (21:15)
[2017-01-24 23:48] VITALS: BP 154/82
[2017-01-25 03:20] VITALS: BP 130/65
[2017-01-25] MEDS: DEXAMETHASONE SOD PHOS 4 MG/ML VIAL IV SCH ×2 (05:48→11:53)
[2017-01-25 07:17] VITALS: BP 131/76
[2017-01-25] MEDS: PANTOPRAZOLE 40 MG TABLET.DR. PO SCH (08:10)
[2017-01-25] MEDS: LEVETIRACETAM 500 MG TABLET. PO SCH (08:11)
[2017-01-25] MEDS: CARVEDILOL 3.125 MG TABLET. PO SCH (08:11)
[2017-01-25] MEDS: DOCUSATE SODIUM 100 MG CAPSULE. PO SCH (08:11)
[2017-01-25] MEDS: CLOPIDOGREL BISULFATE 75 MG TABLET PO SCH (08:11)
[2017-01-25] MEDS: LEVOTHYROXINE 112 MCG TABLET PO SCH (08:11)
[2017-01-25] MEDS: RANOLAZINE 500 MG TAB.ER.12H PO SCH (08:12)
[2017-01-25] MEDS: SENNOSIDES/DOCUSATE 8.6/50MG TABLET. PO SCH (08:12)
[2017-01-25] MEDS: LISINOPRIL 20 MG TABLET PO SCH (08:12)
[2017-01-25] MEDS: IPRATRPIUM/ALBUTEROL 0.5/2.5MG 3 ML NEBU. NEB SCH ×2 (09:14→11:28)
--- NOTE | 2017-01-25 09:23 | PDOC2 ---
CARDIAC CONSULT DATE OF CONSULT Date of Consult DATE: 01/25/17 TIME: 09:08 REASON FOR CONSULT Reason for Consult: CP clearance, plavix issues REFERRING PHYSICIAN Referring Physician: Mariluz SOURCE Source: Chart review, Patient HISTORY OF PRESENT ILLNESS HISTORY OF PRESENT ILLNESS This is a pleasant 81 yo male admitted for complains of left sided weakness. Reports that this has been going on for close to a yr and that his symptoms has been increasing typically more in the afternoon. He also has noticed some double vision. Denies any chest pain, SOA, diaphoresis, nausea. He is significant for CAD with stent placement last yr and currently only on plavix and not on ASA due to increased bruising. Upon further testing he has been noted with right frontal brain mass in which a plan to operate on this is tentatively next week. Currently cardiac zhao he is stable and preop cardiac evaluation has been requested. PAST MEDICAL HISTORY Past Medical History Cardiovascular: CAD, PAD, HTN, HLP CENTRAL NERVOUS SYSTEM: No pertinent history, currently new brain mass Pulmonary: Flu GI: GERD Heme/Onc: No pertinent hx Hepatobiliary: No pertinent hx Psych: No pertinent hx Rheumatologic: No pertinent hx Infectious disease: No pertinent hx ENT: No pertinent hx Renal/: Benign prostatic enlarg. Endocrine: Hypothyroidism Dermatology: No pertinent hx PAST SURGICAL HISTORY Past Surgical History left shoulder and right foot surgery, s/p orbital atherectomy/PLACEMENT SPECIALIST to LSFA and popliteal arteries, s/p PCI/SIDRA to LAD with WATERSHED COORDINATOR of RCA FAMILY HISTORY Family History: Heart Disease SOCIAL HISTORY Smoke: No ALCOHOL: none Drugs: None Lives: with Family CURRENT MEDICATIONS CURRENT MEDICATIONS Current Medications Medications (Trade) Dose Ordered Sig/Julian Route PRN Reason Start Time Stop Time Status Last Admin Dose Admin Gadobutrol (Gadavist) 7 mmol 1X ONCE IV 01/24/17 11:15 01/24/17 11:16 DC 01/24/17 11:23 Dexamethasone Sodium Phosphate (Decadron) 4 mg Q6HRS IV 01/24/17 12:30 01/25/17 05:48 Iohexol (Omnipaque 300 Mg/ml) 75 ml 1X ONCE IV 01/24/17 13:00 01/24/17 13:02 DC 01/24/17 13:00 Iohexol (Omnipaque 240 Mg/ml) 50 ml 1X ONCE PO 01/24/17 13:00 01/24/17 13:02 DC 01/24/17 13:00 Levetiracetam (Keppra) 500 mg BID PO 01/24/17 16:00 01/25/17 08:11 Throat Lozenges (Cepacol Sore Throat Lozenge) 1 malgorzata PRN Q2HRS PRN PO SORE THROAT 01/24/17 18:00 01/24/17 18:12 Bisacodyl (Dulcolax Tab) 10 mg PRN DAILY PRN PO CONSTIPATION 01/24/17 20:15 01/24/17 21:15 ALLERGIES ALLERGIES: Coded Allergies: No Known Drug Allergies (Unverified , 08/16/14) ROS Review of System 14 point ROS evaluated with pertinent positives noted per HPI PHYSICAL EXAM General: Alert, Oriented X3, Cooperative, No acute distress HEENT: Atraumatic, Mucous membr. moist/pink Lungs: Clear to auscultation, Normal air movement Heart: Regular rate (SR with PVCs), Normal S1, Normal S2, Other (2/6 diastolic murmur to GALLITO border) Abdomen: Soft, No tenderness Extremities: No cyanosis, No edema Skin: No breakdown, No significant lesion Neuro: Normal speech, Sensation intact Psych/Mental Status: Mental status NL, Mood NL MUSCULOSKELETAL: Osteoarthritic changes both hands, Other (equal strength to all extremities currently) VITALS VITALS Vital Signs Date Time Temp Pulse Resp B/P Pulse Ox O2 Delivery O2 Flow Rate FiO2 01/25/17 08:12 64 131/76 01/25/17 07:17 97.8 19 97 Room Air 97.8 IMAGES IMAGES Conclusion Successful orbital atherectomy/PLACEMENT SPECIALIST to the left superficial femoral and left popliteal arteries. DATE: 11/19/15 0957 ECHOCARDIOGRAM ECHOCARDIOGRAM <Conclusion> Left ventricle systolic function is normal. The Ejection Fraction is 60-65%. There is normal LV segmental wall motion. Doppler and Color Flow revealed mild aortic regurgitation. Doppler and Color Flow revealed mild mitral regurgitation. Doppler and Color Flow revealed trace to mild tricuspid regurgitation. The PA pressure was estimated at 26 mmHg. DATE: 11/24/16 1625 HEART CATH HEART CATH Conclusion Normal left main coronary artery. 2 vessel coronary artery disease encompassing a total occlusion of the right coronary artery in its proximal section along with a 90% stenosis at the origin of second rami involving a large first obtuse marginal vessel. This lesion was looked on by Dr. Souza and deemed not to be optimal for percutaneous intervention. He felt medical therapy was warranted. Left ventricular ejection fraction is within normal limits and visually estimated to be 65%. Recommendations Aggressive Medical Therapy DATE: 08/20/14 1611 Conclusion 1. Two-vessel coronary artery disease including chronic total occlusion of the right coronary artery that was described in prior cardiac catheterization and managed medically. 2. Successful PCI/drug eluting stent placement to the left anterior descending artery. Recommendations 1. Aspirin 325 mg daily 2. Effient 10 mg daily for preferably one year 3. Cardiovascular risk factor modification DATE: 10/25/15 1101 ASSESSMENT/PLAN ASSESSMENT/PLAN 1. Right frontal brain mass: possible surgery next week per neurosurgery 2. Preoperative cardiac evaluation: moderate risk for CV events per risk stratification. Recent TTE with no WMA. 3. CAD: s/p PCI/SIDRA to LAD with WATERSHED COORDINATOR of RCA. stable 4. PAD: Past percutaneous revascularization. No symptoms of vascular claudications 5. HTN controlled 6. HLP Recommendations 1. DC plavix. Start on ECASA 81 mg. 2. Preop BB on day of procedure. 3. Continue with secondary prevention measures. Problems: DONNA SUMNER APRN Jan 25, 2017 09:23
--- NOTE | 2017-01-25 09:31 | RAD ---
CT of the chest, abdomen and pelvis with contrast, 01/24/2017: History: Brain lesion, possible metastatic disease Multidetector CT imaging was performed following oral and IV administration of contrast. There is mild calcific plaquing of the thoracic aorta without evidence of aneurysm. Scattered coronary artery calcifications are present. Small mediastinal lymph nodes are noted without evidence of pathologic enlargement. There appears to be a small hiatal hernia. There is mild streaky atelectasis and/or scarring in the lung bases. Mild emphysematous changes are noted. No pulmonary mass or significant consolidation is seen. There is no evidence of pleural fluid. No hepatic abnormality is detected. The gallbladder is unremarkable. The pancreas shows no abnormality. The spleen is of normal size. No renal or adrenal abnormality is seen. There is moderate aortoiliac calcific plaquing without evidence of aneurysm. No abdominal or pelvic adenopathy is seen. The prostate gland measures 5.2 cm in width and contains several calcifications. The bowel loops are not dilated. No free fluid is evident in the abdomen or pelvis. Moderate multilevel hypertrophic degenerative changes are present in the spine. There is postsurgical change involving the right clavicle. IMPRESSION: 1. Calcific plaquing of the aorta and its branches including the coronary arteries. 2. Mild bibasilar atelectasis and/or scarring. 3. Mild nonspecific prostatic enlargement. PQRS Compliance Statement: One or more of the following individualized dose reduction techniques were utilized for this examination: 1. Automated exposure control 2. Adjustment of the mA and/or kV according to patient size 3. Use of iterative reconstruction technique
[2017-01-25 11:03] VITALS: BP 129/73
--- NOTE | 2017-01-25 11:15 | PDOC ---
SUBJECTIVE Subjective Denies acute changes. OBJECTIVE Objective CT c/a/p neg for systemic neoplastic disease Vital Signs Vital Signs Date Time Temp Pulse Resp B/P Pulse Ox O2 Delivery O2 Flow Rate FiO2 01/25/17 11:03 97.8 73 17 129/73 99 Room Air 97.8 01/25/17 09:14 100 Room Air 01/25/17 08:12 64 131/76 01/25/17 08:12 64 131/76 01/25/17 08:11 64 131/76 01/25/17 08:00 Room Air 01/25/17 07:17 97.8 64 19 131/76 97 Room Air 97.8 01/25/17 03:20 97.7 72 18 130/65 96 Room Air 97.7 01/24/17 23:48 96.8 72 20 154/82 94 Room Air 96.8 01/24/17 21:15 70 137/68 01/24/17 19:10 Room Air 01/24/17 19:00 96.3 70 18 137/68 95 Room Air 96.3 01/24/17 18:20 Room Air 01/24/17 17:39 62 114/65 01/24/17 15:38 99 Room Air 01/24/17 14:46 97.8 62 20 114/65 94 Room Air 97.8 01/24/17 12:00 100 Room Air I & O Intake and Output 01/25/17 07:00 Intake Total 1990 ml Output Total 1050 ml Balance 940 ml Intake Oral 1990 ml Output Urine Total 1050 ml # Voids 6 # Bowel Movements 1 PHYSICAL EXAM Physical Exam AAOx4, NAD, MALIK stable, sensation intact LT ASSESSMENT/PLAN Assessment/Plan 81M with brain mass -surgery discussed -tentatively scheduled for 02/01/17 (day 7 off plavix) Problems: GLENIS HORAN MD Jan 25, 2017 11:15
[2017-01-25] MEDS ORDERED: ASPIRIN ENTERIC COATED 81 MG TABLET.DR. PO SCH (12:00)
--- NOTE | 2017-01-25 14:33 | PDOC ---
PROGRESS NOTES Chief Complaint Chief Complaint L sided weakness Solitary brain lesion ASSESSMENT AND PLAN: 1. left sided weakness, 2/2 brain mass 2. 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 CT below chin negative for primary. Dr Chen planning resection next Wednesday 3. 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 stable 4. Preoperative cardiac evaluation: moderate risk for CV events per risk stratification. Recent TTE with no WMA. 5. PAD: s/p angio, no acute issues 6. HTN: well controlled controlled 7. HLD: on statin 8. hypothyroidism 9. GERD: H2B 10. constipation 11. chronic vertigo 12. DISPO: home until surgery Vitals Vitals Vital Signs Date Time Temp Pulse Resp B/P Pulse Ox O2 Delivery O2 Flow Rate FiO2 01/25/17 11:29 97 Room Air 01/25/17 11:03 97.8 73 17 129/73 97.8 Physical Exam General: Alert, Oriented X3, Cooperative, No acute distress Heart: Regular rate, Other (2/6 diastolic murmur to GALLITO border) Lungs: Clear, Other Abdomen: Soft, No tenderness Extremities: No cyanosis, No edema Skin: No breakdown, No significant lesion Review of Systems Review of Systems feels ok, no VERDUGO, no CP or SOB TERELL OWENS MD Jan 25, 2017 14:33
[2017-01-25 14:42] VITALS: BP 129/59
[2017-01-25] MEDS ORDERED: DEXA2TAB PO (14:54)
[2017-01-25] MEDS ORDERED: ASPI-482 PO (14:56)
--- NOTE | 2017-01-25 17:47 | PDOC ---
PROGRESS NOTES Assessment Assessment IMPRESSION: Right parietal mass. Partial seizure. RECOMMENDATIONS/PLAN: Will go home and return next week for surgical intervention. Continue Keppra 500 mg bid. Discussed with his at bedside. History of Present Illness History of Present Illness The patient is a 81-year-old right-handed male who may have noticed some left- sided weakness for as long as a year. He remembers that he had it when he was here 2 months ago for influenza. Today he was mowing the lawn and became much weaker. For the past week or 2 he has had some twitching of the left leg. He denies any headaches, history of strokes, or head injuries. He has had some twitching movements of the left leg. His describes a long history of dream enactment. He also has a long history of vertigo Past Medical History Cardiovascular: CAD, HTN, Hyperlipidemia, Other (peripheral vascular disease) Pulmonary: Pneumonia CENTRAL NERVOUS SYSTEM: Vertigo GI: GERD Musculoskeletal: low back pain, Other (clavicle fracture) Rheumatologic: Other (Raynaud's) Renal/: Benign prostatic enlarg. Endocrine: Hypothyroidism Past Surgical History Past Surgical History: Cataract Removal, Other (right foot fracture, hardware, right shoulder) Family History Family History: Cancer Social History Social History , nonsmoker, nondrinker REVIEW OF SYSTEMS: Constitutional: No malnutrition, weight loss, cachexia. Head: No traumatic brain or head injury. Skin: No edema, or rash. Ear: No infection, tinnitus. Eyes: No vision loss, or diplopia. Nose: No bleeding or purulent discharges. Hearing: No hearing decrease. Hearing loss. Neck: No injury. Breast: No history of cancer, masses, or discharges. PHYSICAL EXAMINATION: Refer to PMX and PSH. NEUROLOGICAL EXAMINATION: Alert. Oriented to time, place and person. PERRL. EOMI. CN: no focal findings. Muscle tone: within normal. Muscle strength: 5- DTR: 2- Plantar reflex: Neutral response bilaterally Gait: not examined in chair. Sensory exam: no acute abnormal findings. No obvious cerebellar signs elicited. F-T-N test fine. Objective Objective Vital Signs Date Time Temp Pulse Resp B/P Pulse Ox O2 Delivery O2 Flow Rate FiO2 01/25/17 14:42 97.3 67 17 129/59 98 Room Air 97.3 Intake and Output 01/25/17 07:00 Intake Total 1990 ml Output Total 1050 ml Balance 940 ml Intake Oral 1990 ml Output Urine Total 1050 ml # Voids 6 # Bowel Movements 1 Vitals Signs Vitals VS - Last 72 Hours, by Label Date Time Temp Pulse Resp B/P Pulse Ox O2 Delivery O2 Flow Rate FiO2 01/25/17 14:42 97.3 67 17 129/59 98 Room Air 97.3 01/25/17 11:29 97 Room Air 01/25/17 11:03 97.8 73 17 129/73 99 Room Air 97.8 01/25/17 09:14 100 Room Air 01/25/17 08:12 64 131/76 01/25/17 08:12 64 131/76 01/25/17 08:11 64 131/76 01/25/17 08:00 Room Air 01/25/17 07:17 97.8 64 19 131/76 97 Room Air 97.8 01/25/17 03:20 97.7 72 18 130/65 96 Room Air 97.7 01/24/17 23:48 96.8 72 20 154/82 94 Room Air 96.8 01/24/17 21:15 70 137/68 01/24/17 19:10 Room Air 01/24/17 19:00 96.3 70 18 137/68 95 Room Air 96.3 01/24/17 18:20 Room Air 01/24/17 17:39 62 114/65 01/24/17 15:38 99 Room Air 01/24/17 14:46 97.8 62 20 114/65 94 Room Air 97.8 01/24/17 12:00 100 Room Air 01/24/17 11:00 97.8 63 18 145/64 99 Room Air 97.8 01/24/17 09:42 75 137/66 01/24/17 08:15 61 105/75 01/24/17 08:14 61 105/75 01/24/17 08:00 Room Air 01/24/17 07:59 97 Room Air 01/24/17 07:50 97.8 60 18 105/75 98 Room Air 97.8 Medication Medications Current Medications Aspirin (Ecotrin) 81 mg DAILYWBKFT PO Last administered on 01/25/17t 11:52; Start 01/25/17 at 12:00; Stop 01/25/17 at 16:17; Status DC Bisacodyl (Dulcolax Supp) 10 mg PRN DAILY PRN AL CONSTIPATION; Start 01/24/17 at 20:15; Stop 01/25/17 at 16:17; Status DC Bisacodyl (Dulcolax Tab) 10 mg PRN DAILY PRN PO CONSTIPATION Last administered on 01/24/17 21:15; Start 01/24/17 at 20:15; Stop 01/25/17 at 16:17; Status DC Dexamethasone (Decadron) 2 mg Q6HRS PO ; Start 01/25/17 at 18:00; Stop 01/25/17 at 18:00; Status DC Throat Lozenges (Cepacol Sore Throat Lozenge) 1 malgorzata PRN Q2HRS PRN PO SORE THROAT Last administered on 01/24/17 18:12; Start 01/24/17 at 18:00; Stop at 16:17; Status DC Comment Review of Relevant I have reviewed the following items erika (where applicable) has been applied. BRANDT CRISTINA MD Jan 25, 2017 17:47
[2017-01-25] MEDS ORDERED: DEXAMETHASONE 4 MG TABLET PO SCH (18:00)
== END 2017-01-25 15:55 | disposition home or self-care (01) | DRG 70 ==
LOC: ER 16:13 → 2 SOUTH 18:25
PROVIDERS: ADMIT Internal Medicine; ATTEND Internal Medicine
DX: G93.9 Disorder of brain, unspecified (principal); G93.6 Cerebral edema; G40.89 Other seizures; E03.9 Hypothyroidism, unspecified; E78.00 Pure hypercholesterolemia, unspecified; E78.5 Hyperlipidemia, unspecified; I10 Essential (primary) hypertension; I25.10 Atherosclerotic heart disease of native coronary artery without angina pectoris; I73.00 Raynaud's syndrome without gangrene; K21.9 Gastro-esophageal reflux disease without esophagitis; I73.9 Peripheral vascular disease, unspecified; M54.5 Low back pain; R42 Dizziness and giddiness; N40.0 Benign prostatic hyperplasia without lower urinary tract symptoms; K59.00 Constipation, unspecified; Z79.82 Long term (current) use of aspirin; Z79.899 Other long term (current) drug therapy; Z95.5 Presence of coronary angioplasty implant and graft; Z87.891 Personal history of nicotine dependence
CPT/HCPCS: 36415; 70450; 70553; 71010; 71260; 74177; 80048; 80076; 81001; 83880; 84484; 85027; 85610; 85730; 93005; 94640; 94760; G0481; J1100; J1650; J7620; Q9966; Q9967; 97116; 99285-25; A9585

== ENCOUNTER → 2017-04-30 | Outpatient (CLI) | payer OTHER ==
[2017-02-04 14:59] VITALS: BP 129/72
[~2017-04-30] MED LIST changes: +ASPI-482 PO; +CALC-31 PO; -CALC-67 PO; -CLOP75TA27 PO; +CLOP75TA57 PO; +DEXA2TAB PO; +DIPH25CA58 PO; +DOCU100C28 PO; +FAMO20TA5 PO; +GADOBUTROL 7.5 MMOL/7.5 ML VIAL IV ONE; +GUAI600T47 PO; +LISI10TA2 PO; +MAG355OR17 PO; +MAGN2400 PO; +MECL25TA3 PO; +ONDA4TAB12 PO; +POLY17PO3 PO; +POLY255P PO; -PRAS10TA4 PO; +PRAS10TA9 PO; +SENN-6 PO; +TAMS0.4C2 PO
--- NOTE | 2017-04-30 16:53 | KCIC ---
MRI of the Brain without and with Contrast 04/30/2017 Clinical History: History of meningioma resection. Technique: Unenhanced T1-weighted sagittal and axial and FLAIR, T2-weighted, gradient echo and diffusion-weighted axial images of the brain were obtained. After the intravenous administration of 7 cc of Gadavist, enhanced T1-weighted axial, sagittal and coronal images of the brain were obtained. Findings: Comparison study is dated 02/02/2017. The patient is status post right frontal craniotomy. Residual blood products are seen within the resection site involving the superior right frontal lobe which measure 2.4 cm in greatest diameter. They have decreased since the previous examination where they measured 3.1 cm in greatest diameter. No residual/recurrent mass is definitely seen. The surrounding edema and associated mass effect seen on previous examination has improved. Gliosis surrounds the resection site. There is generalized parenchymal atrophy. Patchy, confluent and multiple small focal areas of abnormally increased signal intensity are seen within the periventricular and subcortical white matter of both cerebral hemispheres along with the francia on the FLAIR and T2-weighted images consistent with areas of small vessel ischemic disease. These have not significantly changed. Small old areas of infarction are seen involving the left cerebellar hemisphere. These measure 2 to 3 mm in size. A 5 mm old areas of lacunar infarction is seen involving the left thalamus. No acute parenchymal abnormality is seen. No abnormal area of contrast enhancement is noted. No extra-axial fluid collection is seen. There is no MRI evidence of acute ischemia/infarction. Mild mucosal thickening is seen throughout the paranasal sinuses. Mucous retention cysts are seen involving the right maxillary sinus which measure 1 to 1.5 cm in size. There is a minimal left mastoid effusion. Moderate size right mastoid effusion is noted. Normal flow voids are seen within the major vascular structures surrounding the brain parenchyma. Impression: 1. There has been interval decrease in the blood products in the resection site within the superior right frontal lobe. No residual/recurrent mass is seen. 2. No acute parenchymal abnormality is noted. Electronically signed by: Amando Drake MD (04/30/2017 4:50 PM) [facility]
== END | disposition home or self-care (01) ==
LOC: KCIC MRI 09:52
PROVIDERS: ATTEND Neurological Surgery
DX: D32.0 Benign neoplasm of cerebral meninges (principal); G31.9 Degenerative disease of nervous system, unspecified; G93.6 Cerebral edema; G93.0 Cerebral cysts; Z98.890 Other specified postprocedural states
CPT/HCPCS: 70553; A9585

== ENCOUNTER → 2017-06-30 | Outpatient (CLI) | payer OTHER ==
[2017-02-04 14:59] VITALS: BP 129/72
[~2017-06-30] MED LIST changes: -GADOBUTROL 7.5 MMOL/7.5 ML VIAL IV ONE; +REGADENOSON 0.4 MG/5 ML DISP.SYRIN. IV ONE
--- NOTE | 2017-06-30 12:38 | RAD ---
APPROVED REPORT Test Type: Pharmacological Stress Nurse/Tech: Velia Leal R.N. Test Indications: CAD, chest pressure w/exertion Cardiac History: stent x1 2016, htn Medications: See Electronic Medical Record Medical History: See Electronic Medical Record Resting ECG: SR w/ frequent pvc's Resting Heart Rate: 62 bpm Resting Blood Pressure: 178/76mmHg Pretest Chest Pain: No chest pain Nurse/Tech Notes S1S2, lungs - coarseness throughout with moist cough Consent: The procedure was explained to the patient in lay terms. Informed consent was witnessed. Josesito eout was entered into [employer]. History and Stress Test performed by LILLIE Ribera Pharm. Details Pharmacologic stress testing was performed using 0.4mg per 5ml of regadenoson given intravenously ove r 7-10 seconds. Stress Symptoms dyspnea, stomach cramps. pt stated towards the end of recovery period that he took all his meds this am including his Coreg. POST EXERCISE Reason for Termination: Infusion complete Max HR: 92 bpm Max Blood Pressure: 162/76mmHg Blood Pressure response to exercise: Normal blood pressure response during stress. Heart Rate response to exercise: wnl Chest Pain: No. Arrhythmia: No. no change from above noted basline ST Change: No. INTERPRETATION Stress EKG Conclusion: Baseline EKG showed sinus rhythm with PVC's. No ischemic changes at peak stre ss. No significant arrhythmias. Imaging Protocol IMAGE PROTOCOL: Rest Tc-99m/stress Tc-99m 1 day Rest: Stress: Viability: Radiopharm.Tc99m PvggcagfjGl90z Sestamibi Dose11.3mCi 35mCi Duration 15min. 10min. Img Date 06/30/2017 06/30/2017 Inj-Img Yipj79lki. 60min. Rest Admin Site:IV - Left AntecubitalAdministrator:RT Amber (Andre)(N) Stress Admin Site: IV - Left AntecubitalAdministrator: LILLIE Ribera STRESS DATA End Diast. Vol.105.0mlAv. Heart Rate63.0bpm End Syst. Vol.34.0mlCO Index BSA0.0L/min Myocardial Gjqx392.0gEject. Gpmltbqa06.0% Stress Rates Pk. Fill Rate2.65EDV/secLVtime Pk. Fill 125.56msec Pk. Empty Rate3.48ESV/secLVtime Pk. Lcgfr676.38msec 1/3 Pk. Fill1.75EDV/sec Stress Scores Regional WT0.00Summed WT7.00 Regional WM0.00Summed WM4.00 Study quality was good. Left Ventricular size was Normal at Rest and Stress. Lung uptake was Normal. Left Ventricular ejection fraction is 68%. The rest and stress images show normal perfusion, normal contraction and thickening. LV Perf. Quant 17 Seg. SSS0.00 17 Seg. SRS0.00 17 Seg. SDS0.00 Stress Defect Extent (% LAD)0.00Rest Defect Extent (% LAD)0.00Rev. Defect Extent (% LAD)0.00 Stress Defect Extent (% LCX) 0.00Rest Defect Extent (% LCX)0.00Rev. Defect Extent (% LCX)0.00 Stress Defect Extent (% RCA)0.00Rest Defect Extent (% RCA)0.00Rev. Defect Extent (% RCA)0.00 Stress Defect Extent (% DEMARIO)0.00Rest Defect Extent (% DEMARIO)0.00Rev. Defect Extent (% DEMARIO)0.00 Conclusion 1. Regadenoson cardioisotope stress test did not show any evidence of ischemia or infarct. 2. Normal left ventricular systolic function with ejection fraction calculated at 68%. 3. Low risk for cardiac events.
== END ==
LOC: NM 08:09
PROVIDERS: ATTEND Internal Medicine Cardiovascular Disease
DX: I25.10 Atherosclerotic heart disease of native coronary artery without angina pectoris (principal); I10 Essential (primary) hypertension; Z79.01 Long term (current) use of anticoagulants
CPT/HCPCS: 78452; 93017; 96374; 96375; 96376; A9500; J2785

== ENCOUNTER → 2017-07-21 | Outpatient (CLI) | payer OTHER ==
[2017-02-04 14:59] VITALS: BP 129/72
[~2017-07-21] MED LIST changes: +IOHEXOL 300 MG/ML 75 ML VIAL IV ONE; -REGADENOSON 0.4 MG/5 ML DISP.SYRIN. IV ONE
[2017-07-21 10:29] LABS: CREATININE 0.9 mg/dL (0.7-1.3); GFR 81.4
--- NOTE | 2017-07-21 15:11 | RAD ---
CT chest Indication: Recurrent cough. History of meningioma resection. Technique: CT of the chest with 75 mL of Omnipaque 300 IV. Multiplanar reformats. Comparison: Study from 01/24/2017 Findings: Neck base is clear. Heart is normal in size. Coronary artery calcifications. No pericardial or pleural effusion. Aortic arch calcifications. No axillary, mediastinal or hilar adenopathy. The right pulmonary artery is dilated measuring 3.2 cm. Trachea is patent. No pulmonary nodules or consolidation.. Visualized liver, spleen, gallbladder, pancreas, adrenals and kidneys are within normal limits. Duodenal diverticulum noted in the third portion of duodenum. Small sliding hiatal hernia. No suspicious bony lesions. Multilevel degenerative disc disease in the thoracic spine. Impression: 1. No pneumonia. 2. Dilated right pulmonary artery. Findings may suggest pulmonary artery hypertension. PQRS Compliance Statement: One or more of the following individualized dose reduction techniques were utilized for this examination: 1. Automated exposure control 2. Adjustment of the mA and/or kV according to patient size 3. Use of iterative reconstruction technique
== END | disposition home or self-care (01) ==
LOC: CT 16:03
PROVIDERS: ATTEND Family Medicine
DX: M51.34 Other intervertebral disc degeneration, thoracic region (principal); I10 Essential (primary) hypertension; R05 Cough; Z79.01 Long term (current) use of anticoagulants
CPT/HCPCS: 36415; 71260; 82565; Q9967

== ENCOUNTER → 2017-11-04 | Outpatient (CLI) | payer OTHER ==
[2017-11-04] MEDS: GADOBUTROL 7.5 MMOL/7.5 ML VIAL IV (10:04)
== END | disposition home or self-care (01) ==
LOC: KCIC MRI 09:12
DX: D32.9 Benign neoplasm of meninges, unspecified (principal); R90.82 White matter disease, unspecified; Z98.890 Other specified postprocedural states
CPT/HCPCS: 70553; A9585

== ENCOUNTER 2017-12-04 18:36 | Emergency (ER) | payer OTHER ==
[2017-12-04 21:15] LABS: ADD MAN DIFF? NO
[2017-12-04 21:17] LABS: BASO % 1 % (0-3); EOS # 0.1 x10^3/uL (0.0-0.7); EOS % 2 % (0-3); HEMATOCRIT 42.4 % (39.0-53.0); HEMOGLOBIN 14.7 g/dL (13.0-17.5); LYMPH # 1.5 x10^3/uL (1.0-4.8); LYMPH % 29 % (24-48); MEAN CORPUSCULAR HEMOGLOBIN 31 pg (25-35); MEAN CORPUSCULAR HGB CONC 35 g/dL (31-37); MEAN CORPUSCULAR VOLUME 91 fL (79-100); MONO # 0.4 x10^3/uL (0.0-1.1); MONO % 9 % (0-9); NEUT # 3.1 x10^3uL (1.8-7.7); NEUT % 60 % (31-73); PLATELET COUNT 111 x10^3/uL (140-400); RED BLOOD COUNT 4.69 x10^6/uL (4.30-5.70); RED CELL DISTRIBUTION WIDTH 13.4 % (11.5-14.5); WHITE BLOOD COUNT 5.1 x10^3/uL (4.0-11.0)
[2017-12-04] MEDS: OXYMETAZOLINE 0.05% NASAL SPRAY 30ML BOTTLE. NS ×2 (22:45)
[2017-12-04] MEDS: cloNIDine HCL 0.1 MG TABLET PO ×4 (22:45→23:44)
[2017-12-04] MEDS: COCAINE 4% TOPICAL SOLUTION TP ×2 (22:45)
[2017-12-04] MEDS: SILVER NITRATE STICK TP ×2 (22:46)
[2017-12-05] MEDS: CEPHALEXIN 250 MG CAPSULE. PO ×2 (00:22)
== END 2017-12-05 00:31 | disposition home or self-care (01) ==
LOC: ER 12-05 00:31
DX: R04.0 Epistaxis (principal); I10 Essential (primary) hypertension; E78.00 Pure hypercholesterolemia, unspecified; K21.9 Gastro-esophageal reflux disease without esophagitis; E03.9 Hypothyroidism, unspecified; I25.10 Atherosclerotic heart disease of native coronary artery without angina pectoris
CPT/HCPCS: 30901; 36415; 85025; 99284

== ENCOUNTER → 2018-04-05 | Outpatient (CLI) | payer OTHER | END | disposition home or self-care (01) | LOC: KCIC CT 09:29 | DX: J34.2 Deviated nasal septum (principal); J34.1 Cyst and mucocele of nose and nasal sinus; I70.0 Atherosclerosis of aorta | CPT/HCPCS: 70486; 71046 ==

== ENCOUNTER → 2018-06-21 | Outpatient (CLI) | payer OTHER ==
[2017-12-05 00:15] VITALS: BP 145/76
[~2018-06-21] MED LIST changes: +CEPH-264 PO; -IOHEXOL 300 MG/ML 75 ML VIAL IV ONE; -IPRA3AMP NEB; +IPRA3AMP29 NEB; -SENN-6 PO; +SENN-82 PO
--- NOTE | 2018-06-21 14:11 | CARD ---
MR#: [id number] Date of Study: 06/21/2018 Ordering Physician: ABDULAZIZ SOUZA, Referring Physician: ABDULAZIZ SOUZA, Tech: Camila Walsh APPROVED REPORT EXAM: Two-dimensional and M-mode echocardiogram with Doppler and color Doppler. Other Information Quality : AverageHR: 64bpm INDICATION Coronary Artery Disease RISK FACTORS Hypertension Hyperlipidemia Former Smoker 2D DIMENSIONS RVDd2.1 (2.9-3.5cm)Left Atrium(2D)3.0 (1.6-4.0cm) IVSd1.1 (0.7-1.1cm)Aortic Root(2D)2.9 (2.0-3.7cm) LVDd4.7 (3.9-5.9cm)LVOT Diameter2.0 (1.8-2.4cm) PWd1.1 (0.7-1.1cm)LVDs2.6 (2.5-4.0cm) FS (%) 45.3 %SV80.0 ml LVEF(%)76.6 (>50%) Aortic Valve AoV Peak James.280.5cm/sAoV VTI64.9cm AO Peak GR.31.5mmHgLVOT Peak James.114.1cm/s AO Mean GR.20mmHgAVA (VMAX)1.27cm2 AI P 1/2 Ljct859qi Mitral Valve MV E Mbmvkuvs02.6cm/sMV DECEL RJIE413ni MV A Wkyjrzaf39.2cm/sE/A Ratio0.8 Tricuspid Valve TR P. Ttduswfg758ro/sRAP [id number] TR Peak Gr.08elBhIBNR75zhOo Pulmonary Vein S1 Ulpcmspq06.8cm/sD2 Usjknmyc82.8cm/s PVa [id number] LEFT VENTRICLE The left ventricle is normal size. The left ventricular systolic function is normal. The ejection fra ction is estimated at 65%. There is normal LV segmental wall motion. Transmitral Doppler flow pattern is Grade I-abnormal relaxation pattern. RIGHT VENTRICLE The right ventricle is normal size. There is normal right ventricular wall thickness. The right ventr icular systolic function is normal. ATRIA The left atrium size is normal. The right atrium size is normal. The interatrial septum is intact wit h no evidence for an atrial septal defect or patent foramen ovale as noted on 2-D or Doppler imaging. AORTIC VALVE The aortic valve is calcified but opens well. Doppler and Color Flow revealed mild to moderate aortic regurgitation. There is moderate valvular aortic stenosis. Calculated aortic valve area is 1.2 cm2 w ith maximum pressure gradient of 31.48 mmHg and mean pressure gradient of 20 mmHg. MITRAL VALVE The mitral valve is thickened but opens well. Mitral annular calcification is mild. Doppler and Color -flow revealed trace mitral regurgitation. TRICUSPID VALVE The tricuspid valve is normal in structure and function. Doppler and Color Flow revealed trace tricus pid regurgitation. Estimated PAP 32 mmHg. PULMONIC VALVE The pulmonary valve is normal in structure and function. Doppler and Color Flow revealed no pulmonic valvular regurgitation. GREAT VESSELS The aortic root is normal in size. The IVC is normal in size and collapses >50% with inspiration. PERICARDIAL EFFUSION There is no evidence of significant pericardial effusion. Critical Notification Critical Value: No <Conclusion> The left ventricular systolic function is normal. The ejection fraction is estimated at 65%. There is normal LV segmental wall motion. Transmitral Doppler flow pattern is Grade I-abnormal relaxation pattern. There is moderate valvular aortic stenosis with mean pressure gradient of 20 mmHg. Mild to moderate aortic regurgitation. Trace mitral regurgitation. Trace tricuspid regurgitation. Estimated PAP 32 mmHg. There is no evidence of significant pericardial effusion. Signed by : Abdulaziz Souza, Electronically Approved : 06/21/2018 14:11:00
== END | disposition home or self-care (01) ==
LOC: ECHO 10:42
PROVIDERS: ATTEND Internal Medicine Cardiovascular Disease
DX: I35.1 Nonrheumatic aortic (valve) insufficiency (principal); I25.10 Atherosclerotic heart disease of native coronary artery without angina pectoris; I10 Essential (primary) hypertension; E78.00 Pure hypercholesterolemia, unspecified; E03.9 Hypothyroidism, unspecified; J44.9 Chronic obstructive pulmonary disease, unspecified; K21.9 Gastro-esophageal reflux disease without esophagitis; Z95.5 Presence of coronary angioplasty implant and graft; Z87.891 Personal history of nicotine dependence; Z82.49 Family history of ischemic heart disease and other diseases of the circulatory system
CPT/HCPCS: 93306

== ENCOUNTER → 2018-07-01 | Outpatient (CLI) | payer OTHER ==
[2017-12-05 00:15] VITALS: BP 145/76
--- NOTE | 2018-07-01 13:56 | KCIC ---
CT CHEST WO CONTRAST Indication: Cough. Bronchiectasis. Exposure: One or more of the following individualized dose reduction techniques were utilized for this examination: 1. Automated exposure control 2. Adjustment of the mA and/or kV according to patient size 3. Use of iterative reconstruction technique. Comparison: July 21, 2017 Contrast: None FINDINGS: Vascular structures: Limited exam without contrast. Aorta is mildly calcified and tortuous. No evidence of aneurysm. Pulmonary artery dilatation is again identified. Lymph nodes:No significant enlargement. Heart: Coronary artery calcifications. Esophagus: Very small hiatal hernia. Pleural spaces: No significant effusion Lungs: Small noncalcified pulmonary nodule in the right lower lobe measures 4 mm, series 6, image 46. Bullae identified in the left upper lobe, measures 2.2 cm diameter. No consolidating infiltrate. Trachea and central airways: Patent Spine: Degenerative changes. Bones: No destructive process Upper abdomen: Slices obtained through the upper most abdomen are limited by the noncontrast technique. No obvious acute findings. Impression: 1. No acute findings in the chest. 2. Small noncalcified 4 mm nodule in the right lower lobe. Per Fleischner Society guidelines, no follow-up is necessary if patient is low risk. If high risk, consider follow-up CT chest in 12 months. Electronically signed by: Ketan Locke MD (07/01/2018 1:53 PM) [facility]
== END | disposition home or self-care (01) ==
LOC: KCIC CT 08:11
PROVIDERS: ATTEND Internal Medicine Pulmonary Disease
DX: M47.894 Other spondylosis, thoracic region (principal); I25.10 Atherosclerotic heart disease of native coronary artery without angina pectoris; I10 Essential (primary) hypertension; E78.00 Pure hypercholesterolemia, unspecified; E03.9 Hypothyroidism, unspecified; J44.9 Chronic obstructive pulmonary disease, unspecified; R91.1 Solitary pulmonary nodule; Z95.5 Presence of coronary angioplasty implant and graft; Z87.891 Personal history of nicotine dependence; Z68.23 Body mass index [BMI] 23.0-23.9, adult; Z82.49 Family history of ischemic heart disease and other diseases of the circulatory system
CPT/HCPCS: 71250

== ENCOUNTER → 2018-07-12 | Outpatient (CLI) | payer OTHER ==
[2017-12-05 00:15] VITALS: BP 145/76
--- NOTE | 2018-07-13 11:18 | RAD ---
MR#: [id number] Date of Study: 07/12/2018 Ordering Physician: ABDULAZIZ BLACKMAN, Referring Physician: ABDULAZIZ BLACKMAN, Tech: Larry Pop MBA, RDMS, RVT, RDCS, RTR APPROVED REPORT Patient Location: OUT-PATIENT Indications PAD VELOCITY AND DOPPLER WAVEFORM ANALYSIS RIGHT cm/secWaveformSeverity LEFT cm/secWaveform Severity dCFA 110.0BiphasicdCFA 83.0Biphasic Prof Fem Art. 67.0BiphasicProf Fem Art. 102.0Triphasic Fem Art Prox. 95.0BiphasicFem Art Prox. 115.0Triphasic Fem Art Mid. 111.0BiphasicFem Art Mid. 79.0Monophasic Fem Art Dist. 133.0MonophasicFem Art Dist. 51.0Monophasic Pop Art(Fossa) 352.0MonophasicPop Art(AK) 95.0Monophasic DATABASE DESIGN ANALYST Prox. 75.0MonophasicPTA Prox. 56.0Monophasic DATABASE DESIGN ANALYST Dist. 67.0MonophasicPTA Dist. 34.0Monophasic Per Art Mid. 22.0MonophasicPer Art Mid. 40.0Monophasic MARI Prox. 41.0MonophasicATA Prox. 38.0Monophasic DPA 32MonophasicDPA 18Monophasic Image Findings Bilateral patterson scale images of the lower extremity arterial vessels reveal diffuse atherosclerotic pl aque. Spectral waveforms are mostly biphasic and monophasic throughout the lower extremity arterial course. Specifically, there is increased velocities at the level of the popliteal artery on the right side bhatt ggestive greater than 75% stenosis. There blunted and diminished waveforms below the knee likely rela cortez to the more proximal obstruction. The right peroneal artery is likely occluded. Diffuse atherosclerosis is noted on the left side without any significant velocity acceleration or de celeration to suggest critical stenoses. Overall likely less than 50% stenosis. Critical Notification Critical Value: No <Conclusion> 1. Significant right popliteal artery stenosis. Two vessel run-off on the right 2. Moderate diffuse disease on the left with three vessel run-off. Signed by : Jesus Saldaña, Electronically Approved : 07/13/2018 11:17:26
== END | disposition home or self-care (01) ==
LOC: US 09:26
PROVIDERS: ATTEND Internal Medicine Cardiovascular Disease
DX: I74.3 Embolism and thrombosis of arteries of the lower extremities (principal)
CPT/HCPCS: 93925

== ENCOUNTER 2018-08-05 06:26 | Observation (INO) | payer OTHER ==
[2018-08-05] VITALS (20 sets, daily range): BP systolic 100–180; BP diastolic 47–86
[~2018-08-05] VITALS: Ht 172.7 cm; Wt 65.8 kg
[~2018-08-05 06:26] MED LIST changes: +ACET500T68 PO; +ASCO500T2 PO; +BREO ELLIPTA 11 EACH IH; +GUAI100G2 PO; +HERBLAX PO; +MULT1TAB52 PO; +QUIN1TAB17 PO; +VITA400C36 PO
[2018-08-05] MEDS: IV NORMAL SALINE 1000ML BAG 1,000 ML IV SCH ×2 (06:44→09:28)
[2018-08-05] MEDS ORDERED: LIDOCAINE 1% Multi-Dose 50 ML VIAL. ONE (07:10)
[2018-08-05] MEDS ORDERED: IODIXANOL 320 MG/ML 100 ML VIAL. ONE (07:10)
[2018-08-05 07:29] LABS: HEMATOCRIT 41.2 % (39.0-53.0); HEMOGLOBIN 14.6 g/dL (13.0-17.5); RED BLOOD COUNT 4.6 x10^6/uL (4.30-5.70); RED CELL DISTRIBUTION WIDTH 13.1 % (11.5-14.5); WHITE BLOOD COUNT 4.7 x10^3/uL (4.0-11.0)
[2018-08-05 07:41] LABS: PROTHROMBIN TIME PATIENT 13.7 SEC (11.7-14.0)
[2018-08-05] MEDS ORDERED: MIDAZOLAM HCL/PF 2 MG/2 ML VIAL. ONE ×2 (07:41→08:45)
[2018-08-05] MEDS ORDERED: HEPARIN for IV BOLUS 10,000 UNIT/10 ML VIAL. ONE ×2 (07:41→08:21)
[2018-08-05] MEDS ORDERED: fentaNYL PF VIAL 100 MCG/2 ML VIAL ONE (07:41)
[2018-08-05 07:46] LABS: CALCIUM 9.5 mg/dL (8.5-10.1); GFR 71.9; POTASSIUM 3.8 mmol/L (3.5-5.1)
[2018-08-05] MEDS ORDERED: NITROGLYCERIN 4 MG/20 ML SYRINGE for CATH LAB. ONE ×2 (08:21→09:00)
[2018-08-05] MEDS ORDERED: dilTIAZem IV PUSH 25 MG/5 ML VIAL ONE (08:21)
[2018-08-05] MEDS ORDERED: LIDOCAINE 1% Multi-Dose 50 ML VIAL. INJ ONE (09:15)
[2018-08-05] MEDS: IV 1/2 NORMAL SALINE 1,000 ML IV SCH ×4 (09:29→20:40)
[2018-08-05] MEDS ORDERED: fentaNYL PF VIAL 100 MCG/2 ML VIAL IV ONE ×2 (10:00→10:45)
[2018-08-05] MEDS ORDERED: MIDAZOLAM HCL/PF 2 MG/2 ML VIAL. IV ONE ×2 (10:00→10:45)
[2018-08-05] MEDS ORDERED: IODIXANOL 320 MG/ML 100 ML VIAL. IART ONE (10:00)
[2018-08-05] MEDS ORDERED: HEPARIN for IV BOLUS 10,000 UNIT/10 ML VIAL. IV ONE (10:00)
[2018-08-05] MEDS ORDERED: NITROGLYCERIN 200 MCG/2 ML SYRINGE FOR CATH/VASC LAB. IART ONE (10:00)
--- NOTE | 2018-08-05 10:40 | PDOC ---
MODERATE SEDATION ASSESSMENT RISKS/ALTERNATIVES Risks/Alternatives Risks and alternatives of this type of sedation and procedure discussed with: RISK/ALTERNATIVES: Patient H & P ON CHART H & P H & P on chart and reviewed for co-morbid conditions and appropriate labs. H&P ON CHART: Yes STATUS PREG STATUS ASSESSED: N/A MEDS/ALLERGIES REVIEWED Meds/Allergies Reviewed Medications and Allergies including time and route of recently administered narcotics and sedatives. MEDS/ALLERGIES REVIEWED: Yes ASA RATING ASA RATING: II AIRWAY ASSESSMENT Airway Assessment Airway patency, oral function limitations, presence of caps, crowns, dentures, partials, and ability to extend neck assessed. AIRWAY ASSESSMENT: Yes MALLAMPATI SCORE MALLAMPATI SCORE: II PRE-SEDATION ASSESSMENT PRE-SEDATION ASSESSMENT: Yes ABDULAZIZ BLACKMAN MD Aug 05, 2018 10:40
[2018-08-05] MEDS ORDERED: ACETAMINOPHEN 325 MG TABLET. PO PRN (10:45)
[2018-08-05] MEDS ORDERED: 0.9 % SODIUM CHLORIDE 10 ML DISP.SYRIN. IV PRN (10:45)
[2018-08-05] MEDS ORDERED: NITROGLYCERIN SUBLINGUAL 0.4 MG BOTTLE OF 25. SL PRN (10:45)
--- NOTE | 2018-08-05 10:58 | CARD ---
MR#: [id number] Date of Study: 08/05/2018 Ordering Physician: ABDULAZIZ BLACKMAN, Referring Physician: ABDULAZIZ BLACKMAN Tech: RT Montrell (R) APPROVED REPORT Technologist: Ange Michelle RT (R) Nurse: Lashaun Marvin R.N. Procedure(s) performed: Successful orbital atherectomy/drug coated balloon angioplasty to the distal right superficial femoral and popliteal arteries and successful balloon CONSTRUCTION ANALYST to the right posterior ti bial artery Moderate sedation: 121 mins INDICATION The indication(s) include : Peripheral artery disease with claudication. PROCEDURE NARRATIVE After explaining the risks, benefits and alternative options, informed consent was obtained from jaydon ent. Patient was brought to the [facility] [employer] and his left groin was prepped and draped in the usua l fashion. 20 mL of 2% lidocaine was infiltrated into the skin and subcutaneous tissues for local ane sthesia. Arterial access was obtained in the left common femoral artery and a 6 Austrian 45 cm destinat ion sheath was inserted. This was advanced over the aortic travis with the help of a 6 Austrian crossov er catheter and the tip was positioned in the very proximal segment of the right superficial femoral artery. Selective angiography of right lower extremity confirmed the previously described 60% stenosi s involving the distal superficial femoral artery, 90% heavily calcified stenosis involving the right popliteal artery, high percent chronic total occlusion of proximal right anterior tibial and mid rig ht peroneal arteries and 80% stenosis involving the distal segment of the right posterior tibial josh ry. The lesions in the right SFA/popliteal and right posterior tibial arteries were crossed with a 0.014 inch command guidewire. The posterior tibial artery stenosis was then dilated with a 3 x 40 mm chocol ate balloon. Subsequently this wire was exchanged over a quick cross catheter to viper guidewire. Mul tiple orbital atherectomy passes were then performed in the distal SFA and entire popliteal artery us ing 1.5 CSI Diamondback atherectomy vandana. The popliteal artery was dilated with a 5.0 x 1 50 mm [employer] En[employer] [place] balloon following which the popliteal and SFA stenoses were dilated with 5 x 1 50 mm Medtron ic Inpact drug-coated balloon. Follow-up angiography showed resolution of all the stenoses with good distal flow. Patient tolerated the procedure well. Hemostasis was achieved using Perclose suture clos ure device. There were no immediate complications. Conclusion Successful orbital atherectomy/drug coated balloon angioplasty to the right superficial femoral and p opliteal arteries. Successful balloon CONSTRUCTION ANALYST to the right posterior tibial artery. Recommendations Vascular risk factor modification and regular exercise regimen. Signed by : Abdulaziz Blackman, Electronically Approved : 08/05/2018 10:56:52
[2018-08-06 03:47] VITALS: BP 146/76
[2018-08-06 04:42] LABS: CALCIUM 9.4 mg/dL (8.5-10.1); CREATININE 0.9 mg/dL (0.7-1.3); GFR 81.2
[2018-08-06] MEDS: IV 1/2 NORMAL SALINE 1,000 ML IV SCH ×2 (05:30→06:40)
[2018-08-06 07:08] VITALS: BP 171/78
--- NOTE | 2018-08-06 09:56 | PDOC ---
Provider Note Provider Note DATE OF ADMISSION: 08/05/2018 DATE OF DISCHARGE: 08/06/2018 REASON FOR ADMISSION: OVERNIGHT OBSERVATION AFTER PVI OF THE RLE Procedures Performed: RLE (SFA/Popliteal/DETAILER FURNITURE angioplasty and atherectomy) via the left femoral approach Final Admission diagnosis: 1. PAD s/p PVI as noted above PRIOR DIAGNOSES: 1. 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 2. Aortic stenosis - Moderate by echo 3. Dyslipidemia 4. Hypothyroidism 5. HTN HOSPITAL COURSE: Patient was brought to the laboratory supervisor on an elective basis after confirmation of lower extremity stenosis by duplex. He underwent successful orbital atherectomy and PVI of the R leg. Overnight he was monitored and had no acute complications. On day of discharge he was chest pain free, no dyspnea, abdominal pain, or lower ext pain. VSS - mildly hypertensive prior to BP meds. Normal heart tones. Lungs clear Bilateral groins with small dime sized hematoma, stable. No bruits auscultated. Bilateral groin ecchymosis. 2+ popliteal pulses and 2+ femoral pulses. Diminished RAT, but 1+ right PT. Cr stable POD #1 DISPOSITION: HOME DISCHARGE MEDICATIONS: 1. Aspirin 81mg daily 2. Plavix 75mg daily 3. Coreg 3.125mg bid 4. Quinapril/HCTZ 20/25mg daily 5. Ranexa 500mg bid (Will confirm with patient he is taking at home) 6. Synthroid 112mcg daily 7. Tamsulosin 0.4mg daily OTC inhalers and vitamins per patients home record. FOLLOW UP: [address] BLACKMAN. KATHERINE TANG MD Aug 06, 2018 09:56
== END 2018-08-06 10:35 | disposition home or self-care (01) ==
LOC: CCL 06:26 → 2 NORTH 08:30
PROVIDERS: ADMIT Family Medicine; ATTEND Internal Medicine Cardiovascular Disease
DX: I70.201 Unspecified atherosclerosis of native arteries of extremities, right leg (principal); I25.10 Atherosclerotic heart disease of native coronary artery without angina pectoris; E78.5 Hyperlipidemia, unspecified; E03.9 Hypothyroidism, unspecified; I10 Essential (primary) hypertension; I35.0 Nonrheumatic aortic (valve) stenosis; Z79.899 Other long term (current) drug therapy
CPT/HCPCS: 36415; 37225; 37228; 80048; 85027; 85610; 85730; 96374; 96375; C1724; C1725; C1769; C1771; C1885; C1892; C2623; G0269; G0378; G0379; J1644; J2250; J3010; J3490; J7030; 99152; 99153

== ENCOUNTER → 2019-05-30 | Outpatient (CLI) | payer OTHER ==
[2018-09-12 11:00] VITALS: BP 161/79
[~2019-05-30] MED LIST changes: +AMOX1TAB11 PO; +AZIT250T6 PO; +CARV3.1210 PO; -CARV3.122 PO; +FLUT16SP NS; -PANT40TA5 PO; +PANT40TA77 PO; +POLY17PO28 PO; -POLY17PO3 PO; -POLY255P PO; +POLY255P11 PO; +REGADENOSON 0.4 MG/5 ML DISP.SYRIN. IV ONE
--- NOTE | 2019-05-30 12:38 | CARD ---
MR#: [id number] Date of Study: 05/30/2019 Ordering Physician: ABDULAZIZ SOUZA, Referring Physician: ABDULAZIZ SOUZA, Tech: Camila Walsh APPROVED REPORT EXAM: Two-dimensional and M-mode echocardiogram with Doppler and color Doppler. Other Information Quality : AverageHR: 63bpm INDICATION Cardiac Disease: CAD Surgery/Intervention stent 2010 RISK FACTORS Hypertension Hyperlipidemia Previous smoker 2D DIMENSIONS RVDd2.7 (2.9-3.5cm)Left Atrium(2D)3.1 (1.6-4.0cm) IVSd1.0 (0.7-1.1cm)Aortic Root(2D)2.9 (2.0-3.7cm) LVDd5.0 (3.9-5.9cm)LVOT Diameter2.0 (1.8-2.4cm) PWd1.2 (0.7-1.1cm)LVDs3.0 (2.5-4.0cm) FS (%) 40.0 %SV82.2 ml LVEF(%)70.5 (>50%) Aortic Valve AoV Peak James.281.8cm/sAoV VTI70.2cm AO Peak GR.31.8mmHgLVOT Peak James.91.3cm/s LVOT VTI 22.76cmAO Mean GR.20mmHg KYLE (VMAX)0.52qy2IDO (VTI)1.02cm2 AI P 1/2 Yzhw074hs Mitral Valve MV E Hbpdiide07.0cm/sMV DECEL GEBZ055dn MV A Gjparllc75.1cm/sMV IQL18ih E/A Ratio0.8MVA (PHT)2.52cm2 TDI E/Lateral E'7.3E/Medial E'10.7 Pulmonary Valve PV Peak Nyinmgyk359.2cm/sPV Peak Grad.6mmHg Tricuspid Valve TR P. Plvqobbv854pc/sRAP OAMOWUHT5kpTv TR Peak Gr.82exVmQEPV82epTs Pulmonary Vein S1 Fahoiknq64.1cm/sD2 Txllzahw17.0cm/s PVa auaptkat068gzbe LEFT VENTRICLE The left ventricle is normal size. There is mild to moderate concentric left ventricular hypertrophy. The left ventricular systolic function is normal. The Ejection Fraction is 60-65%. There is normal L V segmental wall motion. Transmitral Doppler flow pattern is Grade I-abnormal relaxation pattern. RIGHT VENTRICLE The right ventricle is normal size. There is normal right ventricular wall thickness. The right ventr icular systolic function is normal. ATRIA The left atrium size is normal. The right atrium size is normal. The interatrial septum is intact wit h no evidence for an atrial septal defect or patent foramen ovale as noted on 2-D or Doppler imaging. AORTIC VALVE The aortic valve is moderately thickened. Doppler and Color Flow revealed mild to moderate aortic reg urgitation. Calculated aortic valve area is 1.03 cm2 with maximum pressure gradient of 32 mmHg and me an pressure gradient of 21 mmHg. Doppler and color-flow analysis revealed mild to moderate aortic lubna nosis. MITRAL VALVE The mitral valve is normal in structure and function. There is no evidence of mitral valve prolapse. There is no mitral valve stenosis. Doppler and Color-flow revealed mild mitral regurgitation. TRICUSPID VALVE The tricuspid valve is normal in structure and function. Doppler and Color Flow revealed trace tricus pid regurgitation with an estimated PAP of 37 mmHg. There is no tricuspid valve stenosis. PULMONIC VALVE The pulmonic valve is not well visualized. Doppler and Color Flow revealed no pulmonic valvular regur gitation. GREAT VESSELS The aortic root is normal in size. The IVC was not visualized. PERICARDIAL EFFUSION There is no evidence of significant pericardial effusion. Critical Notification Critical Value: No <Conclusion> The left ventricular systolic function is normal. The Ejection Fraction is 60-65%. There is normal LV segmental wall motion. Transmitral Doppler flow pattern is Grade I-abnormal relaxation pattern. Mild to moderate aortic stenosis. Mild to moderate aortic regurgitation. Mild mitral regurgitation. Trace tricuspid regurgitation with an estimated PAP of 37 mmHg. There is no evidence of significant pericardial effusion. Signed by : Abdulaziz Souza, Electronically Approved : 05/30/2019 12:37:44
--- NOTE | 2019-05-30 13:50 | RAD ---
MR#: [id number] Date of Study: 05/30/2019 Ordering Physician: ABDULAZIZ BLACKMAN Referring Physician: MARYANNE RAHMAN Tech: RT Leela JaneR) (N) APPROVED REPORT Test Type: Pharmacological Stress Nurse/Tech: Lissette Hayward RN Test Indications: CAD Medications: See Electronic Medical Record Medical History: See Electronic Medical Record Resting ECG: SR Resting Heart Rate: 57 bpm Resting Blood Pressure: 175/80mmHg Pretest Chest Pain: No chest pain Nurse/Tech Notes S1S2, Clear LS Consent: The procedure was explained to the patient in lay terms. Informed consent was witnessed. Josesito eout was entered into [employer]. History and Stress Test performed by Lissette Hayward RN Pharm. Details Pharmacologic stress testing was performed using 0.4mg per 5ml of regadenoson given intravenously ove r 7-10 seconds. Stress Symptoms Dyspnea Flushing Nausea POST EXERCISE Reason for Termination: Infusion complete Max HR: 97 bpm Max Blood Pressure: 175/80mmHg Chest Pain: No. Arrhythmia: No. ST Change: No. INTERPRETATION Stress EKG Conclusion: Baseline EKG showed sinus rhythm. No ischemic changes at peak stress. No arr hythmias. Imaging Protocol IMAGE PROTOCOL: Rest Tc-99m/stress Tc-99m 1 day Rest: Stress: Viability: Radiopharm.Tc99m DulxmqxgdEc63y Sestamibi Jeco52hDq 33mCi Duration 13min. 13min. Img Date 05/30/2019 05/30/2019 Inj-Img Xrem95hak. 60min. Rest Admin Site:IV - Left AntecubitalAdministrator:RT Lucinda (Andre)(N) Stress Admin Site: IV - Left AntecubitalAdministrator: LILLIE Ribera STRESS DATA End Diast. Vol.77.0mlLVEDV index BSA40.0ml End Syst. Vol.23.0mlLVESV index BSA12.0ml Myocardial Jphl807.0gEject. Dbdddqbr70.0% Stress Scores Regional WT0.00Summed WT2.00 Regional WM0.00Summed WM7.00 LV Perfusion Scintigraphic images showed small fixed defect involving the basal inferior wall consistent with prev ious myocardial infarction without any reversibility. Wall Motion Normal left ventricle systolic function with ejection fraction calculated at 70%. LV Perf. Quant 17 Seg. SSS4.00 17 Seg. SRS0.00 17 Seg. SDS4.00 Stress Defect Extent (% LAD)0.00Rest Defect Extent (% LAD)0.00Rev. Defect Extent (% LAD)0.00 Stress Defect Extent (% LCX) 8.80Rest Defect Extent (% LCX)0.00Rev. Defect Extent (% LCX)8.80 Stress Defect Extent (% RCA)13.30Rest Defect Extent (% RCA)0.00Rev. Defect Extent (% RCA)10.00 Stress Defect Extent (% DEMARIO)4.60Rest Defect Extent (% DEMARIO)0.00Rev. Defect Extent (% DEMARIO)3.90 Conclusion 1. Regadenoson cardioisotope stress test showed small basal inferior wall infarct without any ischemi a. 2. Normal left ventricular systolic function with ejection fraction calculated at 70%. 3. Low risk for cardiac events. Signed by : Abdulaziz Blackman, Electronically Approved : 05/30/2019 13:49:43
== END | disposition home or self-care (01) ==
LOC: ECHO 15:24
PROVIDERS: ATTEND Internal Medicine Cardiovascular Disease
DX: I08.0 Rheumatic disorders of both mitral and aortic valves (principal); I25.10 Atherosclerotic heart disease of native coronary artery without angina pectoris; I25.2 Old myocardial infarction; I10 Essential (primary) hypertension; E78.5 Hyperlipidemia, unspecified; Z87.891 Personal history of nicotine dependence
CPT/HCPCS: 78452; 93017; 93306; A9500; J2785

== ENCOUNTER 2019-06-24 20:54 | Emergency (ER) | payer OTHER ==
[~2019-06-24] VITALS: Ht 172.7 cm; Wt 72.6 kg
[~2019-06-24 20:54] MED LIST changes: -REGADENOSON 0.4 MG/5 ML DISP.SYRIN. IV ONE
[2019-06-24 21:57] LABS: BASO % 0 % (0-3); EOS % 0 % (0-3); HEMATOCRIT 43.4 % (39.0-53.0); HEMOGLOBIN 15.1 g/dL (13.0-17.5); LYMPH # 0.6 x10^3/uL (1.0-4.8); LYMPH % 7 % (24-48); MEAN CORPUSCULAR HEMOGLOBIN 31 pg (25-35); MEAN CORPUSCULAR HGB CONC 35 g/dL (31-37); MEAN CORPUSCULAR VOLUME 90 fL (79-100); MONO # 0.5 x10^3/uL (0.0-1.1); MONO % 6 % (0-9); NEUT # 7.7 x10^3/uL (1.8-7.7); NEUT % 87 % (31-73); PLATELET COUNT 108 x10^3/uL (140-400); RED BLOOD COUNT 4.82 x10^6/uL (4.30-5.70); RED CELL DISTRIBUTION WIDTH 13.3 % (11.5-14.5); WHITE BLOOD COUNT 8.9 x10^3/uL (4.0-11.0)
[2019-06-24 22:12] LABS: CALCIUM 9.4 mg/dL (8.5-10.1); GFR 71.7; POTASSIUM 4.2 mmol/L (3.5-5.1)
[2019-06-24 22:18] LABS: ALBUMIN/GLOBULIN RATIO 1.4 (1.0-1.7); TOTAL BILIRUBIN 0.5 mg/dL (0.2-1.0); TOTAL PROTEIN 6.8 g/dL (6.4-8.2)
[2019-06-24 22:30] VITALS: BP 131/63
[2019-06-24 22:42] LABS: % BANDS 17 % (0-9); % BASOS 1 % (0-3); % LYMPHS 12 % (24-48); % MONOS 7 % (0-10); % SEGS 63 % (35-66); PLT ESTIMATE DECREASED (ADEQUATE)
--- NOTE | 2019-06-24 22:51 | PHYS DOC ---
Past Medical History Past Medical History: CAD, COPD, GERD, High Cholesterol, Hypertension, Hypothyroid, Pneumonia, Other Additional Past Medical Histor: ENVIRONMENTAL ALLERGIES, peripheral vascular disease Past Surgical History: TURP, Other Additional Past Surgical Histo: CARDIAC STENT, SHOULDER & ANKLE SX, CATARACT SX, peripheral stenting Alcohol Use: None Drug Use: None Adult General Chief Complaint Chief Complaint: SHORTNESS OF BREATH HPI HPI Patient is an 83-year-old male who presents with shortness of breath. He states this started this morning when he was lifting weights and walking on the treadmill. He denied any chest pain. He states tonight he became very anxious and started shaking and felt cold. He denies any nausea or vomiting. He states he's recently had pneumonia and he feels like this may be related to that. He denies any hemoptysis. After arrival to the emergency Department he states he feels better.[] Review of Systems Review of Systems Constitutional: Denies fever or chills [] Eyes: Denies change in visual acuity, redness, or eye pain [] HENT: Denies nasal congestion or sore throat [] Respiratory: Per history of present illness[] Cardiovascular: No additional information not addressed in HPI [] GI: Denies abdominal pain, nausea, vomiting, bloody stools or diarrhea [] : Denies dysuria or hematuria [] Musculoskeletal: Denies back pain or joint pain [] Integument: Denies rash or skin lesions [] Neurologic: Reports some shaking[] Endocrine: Denies polyuria or polydipsia [] All other systems were reviewed and found to be within normal limits, except as documented in this note. Allergies Allergies Allergies Coded Allergies Type Severity Reaction Last Updated Verified No Known Drug Allergies 02/01/17 No Physical Exam Physical Exam Constitutional: Well developed, well nourished, no acute distress, non-toxic appearance. [] HENT: Normocephalic, atraumatic, bilateral external ears normal, oropharynx moist, no oral exudates, nose normal. [] Eyes: PERRLA, EOMI, conjunctiva normal, no discharge. [] Neck: Normal range of motion, no tenderness, supple, no stridor. [] Cardiovascular:Heart rate regular rhythm, no murmur [] Lungs & Thorax: Bilateral breath sounds clear to auscultation [] Abdomen: Bowel sounds normal, soft, no tenderness, no masses, no pulsatile masses. [] Skin: Warm, dry, no erythema, no rash. [] Back: No tenderness, no CVA tenderness. [] Extremities: No tenderness, no cyanosis, no clubbing, ROM intact, no edema. [] Neurologic: Alert and oriented X 3, normal motor function, normal sensory function, no focal deficits noted. [] Psychologic: Affect normal, judgement normal, mood normal. [] Current Patient Data Vital Signs Vital Signs Date Time Temp Pulse Resp B/P (MAP) Pulse Ox O2 Delivery O2 Flow Rate FiO2 06/24/19 21:25 99.5 111 24 162/81 (108) 94 Room Air 99.5 Lab Values Laboratory Tests Test 06/24/19 21:40 06/24/19 22:00 White Blood Count 8.9 x10^3/uL (4.0-11.0) Red Blood Count 4.82 x10^6/uL (4.30-5.70) Hemoglobin 15.1 g/dL (13.0-17.5) Hematocrit 43.4 % (39.0-53.0) Mean Corpuscular Volume 90 fL (79-100) Mean Corpuscular Hemoglobin 31 pg (25-35) Mean Corpuscular Hemoglobin Concent 35 g/dL (31-37) Red Cell Distribution Width 13.3 % (11.5-14.5) Platelet Count 108 x10^3/uL (140-400) L Neutrophils (%) (Auto) 87 % (31-73) H Lymphocytes (%) (Auto) 7 % (24-48) L Monocytes (%) (Auto) 6 % (0-9) Eosinophils (%) (Auto) 0 % (0-3) Basophils (%) (Auto) 0 % (0-3) Neutrophils # (Auto) 7.7 x10^3/uL (1.8-7.7) Lymphocytes # (Auto) 0.6 x10^3/uL (1.0-4.8) L Monocytes # (Auto) 0.5 x10^3/uL (0.0-1.1) Eosinophils # (Auto) 0.0 x10^3/uL (0.0-0.7) Basophils # (Auto) 0.0 x10^3/uL (0.0-0.2) Segmented Neutrophils % 63 % (35-66) Band Neutrophils % 17 % (0-9) H Lymphocytes % 12 % (24-48) L Monocytes % 7 % (0-10) Basophils % 1 % (0-3) Platelet Estimate Decreased (ADEQUATE) Sodium Level 142 mmol/L (136-145) Potassium Level 4.2 mmol/L (3.5-5.1) Chloride Level 104 mmol/L (98-107) Carbon Dioxide Level 30 mmol/L (21-32) Anion Gap 8 (6-14) Blood Urea Nitrogen 13 mg/dL (8-26) Creatinine 1.0 mg/dL (0.7-1.3) Estimated GFR (Cockcroft-Gault) 71.7 BUN/Creatinine Ratio 13 (6-20) Glucose Level 113 mg/dL (70-99) H Calcium Level 9.4 mg/dL (8.5-10.1) Total Bilirubin 0.5 mg/dL (0.2-1.0) Aspartate Amino Transferase (AST) 24 U/L (15-37) Alanine Aminotransferase (ALT) 21 U/L (16-63) Alkaline Phosphatase 101 U/L (46-116) Troponin I Quantitative < 0.017 ng/mL (0.000-0.055) ZH-Vgw-O-Type Natriuretic Peptide 235 pg/mL (0-449) Total Protein 6.8 g/dL (6.4-8.2) Albumin 4.0 g/dL (3.4-5.0) Albumin/Globulin Ratio 1.4 (1.0-1.7) Lactic Acid Level 1.6 mmol/L (0.4-2.0) Laboratory Tests 06/24/19 21:40 Laboratory Tests 06/24/19 21:40 EKG EKG [] Radiology/Procedures Radiology/Procedures [] Impressions: Chest x-ray: Negative exam as interpreted by me Course & Med Decision Making Course & Med Decision Making Pertinent Labs and Imaging studies reviewed. (See chart for details) [ED course: Evaluation reveals an anxious 83-year-old male in absolutely no distress. After discussion with the patient I believe there is a component of anxiety exacerbating his symptoms. After review of his chest x-ray and laboratory studies I believe he is safe for discharge home with outpatient follow-up.] Dragon Disclaimer Dragon Disclaimer This electronic medical record was generated, in whole or in part, using a voice recognition dictation system. 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 Return to the emergency department with any new or concerning symptoms Problem Qualifiers Primary Impression: Dyspnea Dyspnea type: unspecified Qualified Codes: R06.00 - Dyspnea, unspecified JOHN STEEL DO Jun 24, 2019 22:51
--- NOTE | 2019-06-24 23:26 | RAD ---
Exam: Chest one view INDICATION: Shortness of breath TECHNIQUE: Frontal view of the chest Comparisons: 09/08/2018 FINDINGS: The cardiomediastinal silhouette and pulmonary vessels are within normal limits. Patchy retrocardiac opacity is noted. No pleural effusion. IMPRESSION: Patchy opacity in the left lung base may represent atelectasis or consolidation. Electronically signed by: Macario Rangel MD (06/24/2019 11:23 PM) [facility]
--- NOTE | 2019-06-26 07:31 | EKG ---
[facility] [address] [place] [address] Test Date: 2019-06-24 Test Time: 21:33:39 Pat Name: DICK PERRY Department: Room: Gender: M [employer]: : 1935 Requested By: JOHN STEEL Order Number: [id number] Reading MD: Measurements Intervals [place] Rate: 110 P: 22 CO: 180 QRS: 39 QRSD: 82 T: 84 QT: 316 QTc: 432 Interpretive Statements SINUS TACHYCARDIA VENTRICULAR PREMATURE COMPLEX(ES), TRIGEMINY NON SPECIFIC ST DEPRESSION NON SPECIFIC T ABNORMALITY ABNORMAL ECG No previous ECG available for comparison
== END 2019-06-24 23:05 | disposition home or self-care (01) ==
LOC: ER 20:54
DX: F06.4 Anxiety disorder due to known physiological condition (principal); R06.00 Dyspnea, unspecified; K21.9 Gastro-esophageal reflux disease without esophagitis; J44.9 Chronic obstructive pulmonary disease, unspecified; E78.00 Pure hypercholesterolemia, unspecified; I10 Essential (primary) hypertension; I25.10 Atherosclerotic heart disease of native coronary artery without angina pectoris
CPT/HCPCS: 36415; 71045; 80053; 83605; 83880; 84484; 85007; 85025; 87040; 93005; 99285-25